=== PATIENT | male | born 1945 | race Caucasian/White ===

== ENCOUNTER → 2020-09-08 09:05 | Outpatient (BNVA) | payer MEDICARE, SELFPAY | PROVIDERS: PCP Internal Medicine; Referring Provider Internal Medicine; Visit Provider Internal Medicine Cardiovascular Disease | DX: I25.10 Atherosclerotic heart disease of native coronary artery without angina pectoris (principal); I10 Essential (primary) hypertension; E78.5 Hyperlipidemia, unspecified; I45.10 Unspecified right bundle-branch block; Z95.5 Presence of coronary angioplasty implant and graft | CPT/HCPCS: 99212 ==

== ENCOUNTER 2020-12-15 | Outpatient (REF) | payer MEDICARE, SELFPAY | END 2020-12-15 00:01 | disposition home or self-care (01) | LOC: HO.VC | PROVIDERS: Visit Provider Internal Medicine | DX: Z23 Encounter for immunization (principal) | CPT/HCPCS: 0011A ==

== ENCOUNTER 2020-12-23 09:21 | Outpatient (REF) | payer MEDICARE, SELFPAY ==
[2020-12-23 10:51] LABS: C Reactive Protein 0.14 mg/dL (< or = 0.50)
[2020-12-23 11:48] LABS: Erythrocyte Sedimentation Rate 7 MM/HR (0-15)
== END 2020-12-23 09:22 | disposition home or self-care (01) ==
LOC: HO.LAB 09:21
PROVIDERS: PCP Internal Medicine; Visit Provider Student in an Organized Health Care Education/Training Program
DX: M35.3 Polymyalgia rheumatica (principal)
CPT/HCPCS: 36415; 85652; 86140

== ENCOUNTER → 2020-12-28 14:24 | Outpatient (BNVA) | payer MEDICARE, SELFPAY | PROVIDERS: Visit Provider Student in an Organized Health Care Education/Training Program | DX: M35.3 Polymyalgia rheumatica (principal); M17.12 Unilateral primary osteoarthritis, left knee | CPT/HCPCS: 99212 ==

== ENCOUNTER → 2020-12-31 09:50 | Outpatient (BNVA) | payer MEDICARE, SELFPAY | PROVIDERS: Visit Provider Orthopaedic Surgery | DX: M17.12 Unilateral primary osteoarthritis, left knee (principal) | CPT/HCPCS: 20610; 99212; J1040 ==

== ENCOUNTER 2021-01-11 | Outpatient (REF) | payer MEDICARE, SELFPAY | END 2021-01-11 00:01 | disposition home or self-care (01) | LOC: HO.VC | PROVIDERS: Visit Provider Internal Medicine | DX: Z23 Encounter for immunization (principal) | CPT/HCPCS: 0012A ==

== ENCOUNTER 2021-02-15 08:23 | Outpatient (REF) | payer MEDICARE, SELFPAY ==
[2021-02-15 09:22] LABS: Cholesterol 138 mg/dL; HDL Cholesterol 51 mg/dL; LDL Cholesterol Calculated 67 mg/dl; Triglycerides 100 mg/dL
== END 2021-02-15 08:24 | disposition home or self-care (01) ==
LOC: HO.LAB 08:23
PROVIDERS: PCP Internal Medicine; Visit Provider Internal Medicine
DX: E11.9 Type 2 diabetes mellitus without complications (principal)
CPT/HCPCS: 36415; 80061

== ENCOUNTER → 2021-03-15 09:09 | Outpatient (BNVA) | payer MEDICARE, SELFPAY | PROVIDERS: Visit Provider Urology | DX: N40.1 Benign prostatic hyperplasia with lower urinary tract symptoms (principal); N13.8 Other obstructive and reflux uropathy; R39.12 Poor urinary stream; R35.1 Nocturia | CPT/HCPCS: 51798; 81002; 99212 ==

== ENCOUNTER → 2021-04-26 10:57 | Outpatient (BNVA) | payer MEDICARE, SELFPAY | PROVIDERS: PCP Internal Medicine; Visit Provider Urology | DX: N40.1 Benign prostatic hyperplasia with lower urinary tract symptoms (principal); N13.8 Other obstructive and reflux uropathy; R35.1 Nocturia | CPT/HCPCS: 52000; 99212 ==

== ENCOUNTER 2021-04-29 09:11 | Outpatient (REF) | payer MEDICARE, SELFPAY ==
[2021-04-29 12:08] LABS: COVID-19 Test Negative (Negative)
== END 2021-04-29 09:12 | disposition home or self-care (01) ==
LOC: HO.LAB 09:11
PROVIDERS: PCP Internal Medicine; Visit Provider Internal Medicine
DX: Z20.822 Contact with and (suspected) exposure to COVID-19 (principal)
CPT/HCPCS: 36415; 87635; C9803

== ENCOUNTER 2021-04-30 07:50 | Emergency (ER) | payer MEDICARE, SELFPAY ==
--- NOTE | 2021-04-30 08:01 | ED.MALEGU ---
HPI - Male Genitourinary General Chief complaint: Urogenital-Male Stated complaint: Cant Urinate Time Seen by Provider: 04/30/21 07:58 Source: patient Mode of arrival: ambulatory Limitations: no limitations History of Present Illness MD Complaint: other (urinary retention) Onset (ago): day(s) (started last evening) Duration: constant Severity: moderate Quality: aching Relieving factors: none Exacerbating factors: none Context: recent surgery (on 04/26 had cystoscopy and started on finasteride which he states he cannot tolerate) Associated symptoms: Reports denies other symptoms Related Data Home Medications Medication Instructions Recorded Confirmed calcium carbonate 600 mg (1,500 1 tab PO DAILY 08/18/20 11/24/20 mg)-vitamin D3 400 unit tablet niacin 500 mg tablet 500 mg PO BID 08/18/20 11/24/20 aspirin 81 mg tablet,delayed 81 mg PO DAILY 09/08/20 11/24/20 release Previous Rx's Medication Instructions Recorded carvedilol 12.5 mg tablet 12.5 mg PO BID #180 tab 11/08/20 simvastatin 40 mg tablet 40 mg PO BEDTIME #90 tab 11/08/20 lisinopril 10 mg tablet 10 mg PO DAILY #90 tab 04/07/21 isosorbide mononitrate 30 mg 30 mg PO QAM #30 tab 04/22/21 tablet,extended release 24 hr finasteride 5 mg tablet 5 mg PO DAILY 90 Days #90 tab 04/26/21 terazosin 1 mg capsule 1 mg PO BEDTIME 90 Days #90 cap 04/26/21 cefuroxime axetil 500 mg PO BID 10 Days #20 tab 04/30/21 Allergies Allergy/AdvReac Type Severity Reaction Status Date / Time No Known Allergies Allergy Verified 04/26/21 11:13 Review of Systems Review of Systems: Constitutional : No Weight loss, No Fever, No Chills ENT/Mouth : No sore throat, No Rhinorrhea Eyes: No Swelling, No Redness Cardiovascular : No Chest Pain, No SOB, NoEdema Respiratory : No Cough, No Sputum, No Wheezing Gastrointestinal : no Nausea, no Vomiting, no Diarrhea, positive abdominal Pain, No Hematochezia, No Melena Genitourinary : No Dysuria, No Urinary Frequency, No Hematuria, No Urgency , pos retention Musculoskeletal : No joint pain, No Myalgias, No Joint Swelling Skin : No Skin Lesions, No rash Neuro : No Weakness, No Numbness, No Dizziness, No Headache Psych : No Anxiety/Panic, No Depression Heme/Lymph: No Bruising, No Lymphadenopathy Endocrine : No Polyuria, No Polydipsia All other systems reviewed and are negative. [facility] Past Medical History Attestation statement: The following information was validated with the patient. Medical History CAD (coronary artery disease) HTN (hypertension) Hyperlipidemia Other obstructive and reflux uropathy Polymyalgia rheumatica RBBB Surgical History Hx of cardiac cath No pertinent past surgical history Stented coronary artery Family History Family History Father CVD (cardiovascular disease) Mother CVD (cardiovascular disease) Social History Social History (Updated 04/30/21 @ 08:13 by Genesis Solis DO) Alcohol intake: never Patient Tobacco Use Status: Never used Tobacco Use of substances other than those prescribed or required for medical reasons: No Advance Directives: Yes Advance Directives Information Provided: Yes Advance Directives on File: No Physical Exam Vital Signs: Vital Signs: Last Vital Signs Temp 98.3 F 04/30/21 08:06 Pulse 96 04/30/21 08:53 Resp 16 04/30/21 08:53 BP 106/61 04/30/21 08:53 Pulse Ox 96 04/30/21 08:53 Body Mass Index 25.8 Appearance: Alert. Oriented X3. No acute distress. Eyes: Pupils equal, round and reactive to light. ENT: Pharynx normal. Neck: Normal inspection. Neck supple. CVS: Normal heart rate and rhythm. Pulses normal. Respiratory: No respiratory distress. Breath sounds normal. Abdomen: Soft and non-tender. Suprapubic fullness noted Skin: Skin warm and dry. Normal skin color. Normal skin turgor. Extremities: No lower extremity edema. No calf ttp Neuro: Oriented X 3. No motor deficit. No sensory deficit. Course Course Course Narrative: cath placed by RN without issue + UA no signs of sepsis at this time, able to tolerate PO, will give rocephin dose prior to DC MDM - Male Genitourinary MDM Narrative Medical decision making narrative: 75 yo male with BPH, CAD, HTN, HLD here with urinary retention since last evening, noted changes in his stream since cystoscopy on 04/26 and new changes to his prostate medications - at this time labs, UA, flores placement with lidocaine ordered, aware he will need to go home with flores and follow up with Urology Lab Data Result diagrams: 04/30/21 08:50 04/30/21 08:50 Labs: Lab Results 04/30/21 04/30/21 04/30/21 Range/Units 08:49 08:50 08:50 WBC 13.6 H (4.8-10.8) X10*3/uL RBC 4.72 (4.60-5.80) X10*6/uL Hgb 15.4 (14.0-18.0) g/dl Hct 44.1 (42-52) % MCV 93.4 (80-98) fL MCH 32.6 (27.0-33.0) pg MCHC 34.9 (31.0-36.0) g/dl RDW 11.7 (11.0-16.0) % Plt Count 124 L (160-400) X10*3/uL MPV 11.1 (9.4-12.4) fL Immature Gran % (Auto) 1.2 H (0.0-0.4) % Neut % (Auto) 81.8 H (45-73) % Lymph % (Auto) 5.2 L (20-40) % [place] % (Auto) 11.7 H (2-11) % Eos % (Auto) 0.0 (0-4) % Baso % (Auto) 0.1 (0-2) % Lymph # (Auto) 0.7 L (1.2-4.9) X10*3/uL [place] # (Auto) 1.6 H (0.1-1.2) X10*3/uL Eos # (Auto) 0.0 (0.0-0.4) X10*3/uL Baso # (Auto) 0.0 (0.0-0.2) X10*3/uL Abs Immat Gran (auto) 0.16 H (0.00-0.03) X10*3/uL Absolute Neuts (auto) 11.1 H (2.0-8.3) X10*3/uL Absolute Nucleated RBC 0.000 (0.0-0.012) X10*3/uL Nucleated RBC % (auto) 0.0 (0.0-0.2) /100WBC Smear Tech's Comments VERIFIED Sodium 136 (135-145) mmol/L Potassium 4.6 (3.3-5.1) mmol/L Chloride 104 (96-108) mmol/L Carbon Dioxide 24 (22-29) mmol/L Anion Gap 13 (12-20) BUN 22 H (9-16) mg/dL Creatinine 1.08 (0.5-1.4) mg/dL Estim Creat Clear Calc 51.6 Estimated GFR > 60 Random Glucose 150 H (60-115) mg/dL Calcium 8.8 (8.4-10.2) mg/dL Urine Color YELLOW Urine Appearance CLOUDY Urine pH 6.0 (5.0-8.0) Ur Specific [place] <= 1.005 (1.005-1.025) Urine Protein 1+ H (NEG-TRACE) MG/DL Urine Glucose (UA) NEG (NEG) MG/DL Urine Ketones 5 (NEG) MG/DL Urine Blood 3+ H (NEG) Urine Nitrite POS H (NEG) Ur Leukocyte Esterase 2+ H (NEG) Urine RBC 15-29 H (0) /HPF Urine WBC 50-75 H (0-4) /HPF Ur Squamous Epith Cells 1+ /LPF Urine Bacteria 1+ /LPF Discharge Plan Discharge Clinical Impression: Urinary tract infection, Acute retention of urine Patient Disposition: Home, Self-Care Instructions: Urinary Tract Infection in Men (ED), Flores Catheter Placement and Care (ED) Additional Instructions: return to ED for any worsening symptoms or concerns KEEP CATHETER IN PLACE UNTIL YOU SEE UROLOGY Prescriptions: New cefuroxime axetil 500 mg tablet 500 mg PO BID 10 Days Qty: 20 RF: 0 No Action simvastatin 40 mg tablet 40 mg PO BEDTIME Qty: 90 RF: 8 carvedilol 12.5 mg tablet 12.5 mg PO BID Qty: 180 RF: 8 lisinopril 10 mg tablet 10 mg PO DAILY Qty: 90 RF: 8 isosorbide mononitrate 30 mg tablet extended release 24 hr 30 mg PO QAM Qty: 30 RF: 5 niacin 500 mg tablet 500 mg PO BID RF: 0 calcium carbonate-vitamin D3 [Calcium with Vitamin D] 600 mg(1,500mg) -400 unit tablet 1 tab PO DAILY RF: 0 aspirin [Adult Low Dose Aspirin] 81 mg tablet,delayed release (DR/EC) 81 mg PO DAILY RF: 0 finasteride 5 mg tablet 5 mg PO DAILY 90 Days Qty: 90 RF: 1 terazosin 1 mg capsule 1 mg PO BEDTIME 90 Days Qty: 90 RF: 1 Referrals: Fidencio Rhodes MD [Physician] - 3 days
[2021-04-30 08:06] VITALS: BP 128/82; PULSE 110; RESP 16; TEMP 36.8; O2SAT 96; BMI 25.8
[2021-04-30] MEDS: Lidocaine HCl 2 % Urojet 10 ML JEL.PF.APP TOPICAL (08:35)
[2021-04-30 08:53] VITALS: BP 106/61; PULSE 96; RESP 16; O2SAT 96
--- NOTE | 2021-04-30 08:54 | PC.NURSE ---
VSS. Pt states that he is much more comfortable now that he has the catheter in place. Per previous RN coude was inserted with 800ml of urine output. Pt is resting in bed comfortably at this time.
[2021-04-30 08:56] LABS: Hemoglobin 15.4 g/dl (14.0-18.0); Imm Gran Abs Auto 0.16 X10*3/uL (0.00-0.03); Imm Gran Pct Auto 1.2 % (0.0-0.4); MANUAL DIFF FLAG SCAN; Mean Corpuscular Hemoglobin 32.6 pg (27.0-33.0); PLT CLUMP 1; Red Blood Count 4.72 X10*6/uL (4.60-5.80); Red Cell Distribution Width 11.7 % (11.0-16.0); SCAN SMEAR FLAG 1
[2021-04-30 08:57] LABS: Glucose Urine UA NEG (NEG); Leukocyte Esterase Urine 2+ (NEG); Nitrite Urine POS (NEG); Specific Gravity - Urine <= 1.005 (1.005-1.025); UACC Culture Trigger YES; Urine Blood 3+ (NEG); Urine Ketones 5 MG/DL (NEG); Urine Protein 1+ MG/DL (NEG-TRACE)
[2021-04-30 08:58] LABS: Appearance Urine CLOUDY; Color Urine YELLOW
[2021-04-30 08:58] LABS: Basophils Percent Auto 0.1 % (0-2); Hematocrit 44.1 % (42-52); Lymphocytes Absolute Auto 0.7 X10*3/uL (1.2-4.9); Lymphocytes Percent Auto 5.2 % (20-40); Mean Corpuscular HGB Conc 34.9 g/dl (31.0-36.0); Mean Corpuscular Volume 93.4 fL (80-98); Mean Platelet Volume 11.1 fL (9.4-12.4); Monocytes Absolute Auto 1.6 X10*3/uL (0.1-1.2); Monocytes Percent Auto 11.7 % (2-11); Neutrophils Absolute Auto 11.1 X10*3/uL (2.0-8.3); Neutrophils Percent Auto 81.8 % (45-73); Platelet Count 124 X10*3/uL (160-400); White Blood Count 13.6 X10*3/uL (4.8-10.8)
[2021-04-30 09:11] LABS: Bacteria Urine 1+ /LPF; Squamous Epithelial Cell Urine 1+ /LPF; WBC Urine 50-75 /HPF (0-4)
[2021-04-30 09:24] LABS: SLIDE REVIEW VERIFIED
[2021-04-30 09:27] LABS: Anion Gap 13 (12-20); Blood Urea Nitrogen 22 mg/dL (9-16); Calcium 8.8 mg/dL (8.4-10.2); Carbon Dioxide 24 mmol/L (22-29); Chloride 104 mmol/L (96-108); Creatinine Clr Calc Pharmacy 51.6; Estimated Glomerular Filt Rate > 60; Glucose Random 150 mg/dL (60-115); Potassium 4.6 mmol/L (3.3-5.1); Sodium 136 mmol/L (135-145)
[2021-04-30] MEDS: cefTRIAXone sodium 1 GM in 0.9 % Sodium Chloride 50 ML IV (10:13)
--- NOTE | 2021-04-30 10:14 | PC.NURSE ---
Ceftriaxone running. Pt aware of the plan to dc home with catheter.
== END 2021-04-30 10:44 | disposition home or self-care (01) ==
PROVIDERS: Emergency Provider Emergency Medicine; PCP Internal Medicine
DX: N39.0 Urinary tract infection, site not specified (principal); N40.1 Benign prostatic hyperplasia with lower urinary tract symptoms; R33.8 Other retention of urine; I10 Essential (primary) hypertension; Z79.899 Other long term (current) drug therapy
CPT/HCPCS: 36415; 51702; 80048; 81001; 81003; 85025; 87086; 87088; 87186; 96365; 99284; 99285; J0696

== ENCOUNTER → 2021-05-05 08:25 | Outpatient (BNVA) | payer MEDICARE, SELFPAY | PROVIDERS: PCP Internal Medicine | DX: N40.1 Benign prostatic hyperplasia with lower urinary tract symptoms (principal); N13.8 Other obstructive and reflux uropathy; R33.8 Other retention of urine | CPT/HCPCS: 51700; 99212 ==

== ENCOUNTER 2021-05-17 08:30 | Outpatient (REF) | payer MEDICARE, SELFPAY ==
[2021-05-17 09:09] LABS: MANUAL DIFF FLAG NO
[2021-05-17 09:12] LABS: Basophils Absolute Auto 0.1 X10*3/uL (0.0-0.2); Basophils Percent Auto 0.8 % (0-2); Eosinophils Absolute Auto 0.2 X10*3/uL (0.0-0.4); Hemoglobin 16.3 g/dl (14.0-18.0); Imm Gran Abs Auto 0.03 X10*3/uL (0.00-0.03); Imm Gran Pct Auto 0.4 % (0.0-0.4); Lymphocytes Absolute Auto 1.7 X10*3/uL (1.2-4.9); Lymphocytes Percent Auto 21.4 % (20-40); Mean Corpuscular Hemoglobin 31.9 pg (27.0-33.0); Mean Corpuscular Volume 93.9 fL (80-98); Mean Platelet Volume 11.1 fL (9.4-12.4); Monocytes Absolute Auto 0.8 X10*3/uL (0.1-1.2); Monocytes Percent Auto 10.8 % (2-11); Neutrophils Absolute Auto 4.9 X10*3/uL (2.0-8.3); Neutrophils Percent Auto 63.6 % (45-73); Platelet Count 232 X10*3/uL (160-400); Red Blood Count 5.11 X10*6/uL (4.60-5.80); Red Cell Distribution Width 11.9 % (11.0-16.0); White Blood Count 7.7 X10*3/uL (4.8-10.8)
[2021-05-17 09:29] LABS: Alanine Aminotransferase 19 U/L (0-40); Alkaline Phosphatase 67 U/L (39-117); Anion Gap 11 (12-20); Aspartate Amino Transferase 22 U/L (5-37); Blood Urea Nitrogen 18 mg/dL (9-16); C Reactive Protein 0.96 mg/dL (< or = 0.50); Calcium 9.6 mg/dL (8.4-10.2); Carbon Dioxide 28 mmol/L (22-29); Chloride 106 mmol/L (96-108); Cholesterol 134 mg/dL; Estimated Glomerular Filt Rate > 60; Glucose Fasting 115 mg/dL (60-99); HDL Cholesterol 45 mg/dL; Potassium 4.7 mmol/L (3.3-5.1); Sodium 140 mmol/L (135-145); Total Protein 6.7 g/dL (6.5-8.0)
[2021-05-17 09:31] LABS: LDL Cholesterol Calculated 72 mg/dl; Triglycerides 88 mg/dL
[2021-05-17 10:44] LABS: Erythrocyte Sedimentation Rate 25 MM/HR (0-15)
== END 2021-05-17 08:31 | disposition home or self-care (01) ==
LOC: HO.LAB 08:30
PROVIDERS: Student in an Organized Health Care Education/Training Program; PCP Internal Medicine; Visit Provider Internal Medicine
DX: Z00.00 Encounter for general adult medical examination without abnormal findings (principal); M35.3 Polymyalgia rheumatica; E11.9 Type 2 diabetes mellitus without complications
CPT/HCPCS: 36415; 80053; 80061; 85025; 85652; 86140

== ENCOUNTER → 2021-05-19 10:24 | Outpatient (BNVA) | payer MEDICARE, SELFPAY | PROVIDERS: PCP Internal Medicine; Visit Provider Urology | DX: Z13.89 Encounter for screening for other disorder (principal) | CPT/HCPCS: 99212 ==

== ENCOUNTER → 2021-06-03 08:54 | Outpatient (BNVA) | payer MEDICARE, SELFPAY | PROVIDERS: PCP Internal Medicine | DX: R33.9 Retention of urine, unspecified (principal) | CPT/HCPCS: 51700; 99212 ==

== ENCOUNTER 2021-07-06 09:52 | Outpatient (REF) | payer MEDICARE, SELFPAY | END 2021-07-06 09:53 | disposition home or self-care (01) | LOC: HO.LNP 09:52 | PROVIDERS: PCP Internal Medicine | DX: N13.8 Other obstructive and reflux uropathy (principal); Z79.899 Other long term (current) drug therapy | CPT/HCPCS: 51798; 87086; 87088; 87186; 99212 ==

== ENCOUNTER → 2021-07-22 10:07 | Outpatient (BNVA) | payer MEDICARE, SELFPAY | PROVIDERS: Visit Provider Student in an Organized Health Care Education/Training Program | CPT/HCPCS: Q3014 ==

== ENCOUNTER 2021-08-18 10:02 | Outpatient (REF) | payer MEDICARE, SELFPAY ==
[2021-08-18 11:18] LABS: Cholesterol 123 mg/dL; HDL Cholesterol 41 mg/dL; LDL Cholesterol Calculated 65 mg/dl; Triglycerides 85 mg/dL
== END 2021-08-18 10:03 | disposition home or self-care (01) ==
LOC: HO.LAB 10:02
PROVIDERS: PCP Internal Medicine; Visit Provider Internal Medicine
DX: I10 Essential (primary) hypertension (principal)
CPT/HCPCS: 36415; 80061

== ENCOUNTER → 2021-09-05 08:59 | Outpatient (BNVA) | payer MEDICARE, SELFPAY | PROVIDERS: PCP Internal Medicine; Referring Provider Internal Medicine; Visit Provider Internal Medicine Cardiovascular Disease | DX: R42 Dizziness and giddiness (principal); I25.10 Atherosclerotic heart disease of native coronary artery without angina pectoris; I10 Essential (primary) hypertension; I45.10 Unspecified right bundle-branch block; E78.5 Hyperlipidemia, unspecified; M35.3 Polymyalgia rheumatica; Z95.5 Presence of coronary angioplasty implant and graft; Z98.890 Other specified postprocedural states; Z79.899 Other long term (current) drug therapy | CPT/HCPCS: 93005; 99212 ==

== ENCOUNTER 2021-11-25 08:10 | Outpatient (REF) | payer MEDICARE, SELFPAY ==
[2021-11-25 11:06] LABS: Alanine Aminotransferase 19 U/L (0-40); Albumin Level 4.2 g/dL (3.5-5.0); Alkaline Phosphatase 57 U/L (39-117); Anion Gap 13 (12-20); Aspartate Amino Transferase 19 U/L (5-37); Bilirubin Total 1.1 mg/dL (0.0-1.0); Blood Urea Nitrogen 24 mg/dL (9-16); Calcium 9.5 mg/dL (8.4-10.2); Carbon Dioxide 25 mmol/L (22-29); Chloride 106 mmol/L (96-108); Cholesterol 124 mg/dL; Estimated Glomerular Filt Rate > 60; Glucose Fasting 99 mg/dL (60-99); HDL Cholesterol 46 mg/dL; LDL Cholesterol Calculated 63 mg/dl; Potassium 4.3 mmol/L (3.3-5.1); Sodium 140 mmol/L (135-145); Total Protein 6.7 g/dL (6.5-8.0); Triglycerides 76 mg/dL
== END 2021-11-25 08:11 | disposition home or self-care (01) ==
LOC: HO.LAB 08:10
PROVIDERS: PCP Internal Medicine; Visit Provider Internal Medicine
DX: E11.9 Type 2 diabetes mellitus without complications (principal)
CPT/HCPCS: 36415; 80053; 80061

== ENCOUNTER → 2022-01-05 08:36 | Outpatient (BNVA) | payer MEDICARE, SELFPAY | PROVIDERS: PCP Internal Medicine; Referring Provider Internal Medicine; Visit Provider Surgery | DX: K40.90 Unilateral inguinal hernia, without obstruction or gangrene, not specified as recurrent (principal) | CPT/HCPCS: 99202 ==

== ENCOUNTER 2022-01-09 09:58 | Outpatient (REF) | payer MEDICARE, SELFPAY ==
[2022-01-09 11:44] LABS: Cholesterol 127 mg/dL; HDL Cholesterol 44 mg/dL; LDL Cholesterol Calculated 66 mg/dl; Triglycerides 87 mg/dL
[2022-01-09 11:54] LABS: Prostate Specific Antigen 2.22 ng/mL (<0.05-4.0)
== END 2022-01-09 09:59 | disposition home or self-care (01) ==
LOC: HO.LAB 09:58
PROVIDERS: PCP Internal Medicine; Visit Provider Urology
DX: Z00.00 Encounter for general adult medical examination without abnormal findings (principal); Z12.5 Encounter for screening for malignant neoplasm of prostate; N40.1 Benign prostatic hyperplasia with lower urinary tract symptoms; N13.8 Other obstructive and reflux uropathy
CPT/HCPCS: 36415; 80061; 84153

== ENCOUNTER → 2022-01-27 08:44 | Outpatient (BNVA) | payer MEDICARE, SELFPAY | PROVIDERS: PCP Internal Medicine; Visit Provider Urology | DX: N40.1 Benign prostatic hyperplasia with lower urinary tract symptoms (principal); R33.8 Other retention of urine; R39.12 Poor urinary stream; Z79.899 Other long term (current) drug therapy | CPT/HCPCS: 99212 ==

== ENCOUNTER 2022-05-26 07:54 | Outpatient (REF) | payer MEDICARE, SELFPAY ==
[2022-05-26 09:04] LABS: Cholesterol 134 mg/dL; HDL Cholesterol 42 mg/dL; LDL Cholesterol Calculated 75 mg/dl; Triglycerides 85 mg/dL
== END 2022-05-26 07:55 | disposition home or self-care (01) ==
LOC: HO.LAB 07:54
PROVIDERS: PCP Internal Medicine; Visit Provider Internal Medicine
DX: Z13.9 Encounter for screening, unspecified (principal); Z13.220 Encounter for screening for lipoid disorders
CPT/HCPCS: 36415; 80061

== ENCOUNTER 2022-07-20 08:27 | Outpatient (REF) | payer MEDICARE, SELFPAY ==
[2022-07-20 10:46] LABS: C Reactive Protein 0.03 mg/dL (< or = 0.50)
[2022-07-20 11:21] LABS: Erythrocyte Sedimentation Rate 6 MM/HR (0-15)
== END 2022-07-20 08:28 | disposition home or self-care (01) ==
LOC: HO.10HDL 08:27
PROVIDERS: Visit Provider Nurse Practitioner Family
DX: M35.3 Polymyalgia rheumatica (principal)
CPT/HCPCS: 36415; 85652; 86140

== ENCOUNTER → 2022-07-24 12:20 | Outpatient (BNVA) | payer MEDICARE, SELFPAY | PROVIDERS: PCP Internal Medicine; Visit Provider Nurse Practitioner Family | DX: M35.3 Polymyalgia rheumatica (principal); M17.12 Unilateral primary osteoarthritis, left knee | CPT/HCPCS: 99212 ==

== ENCOUNTER → 2022-07-25 14:34 | Outpatient (BNVA) | payer MEDICARE, SELFPAY | PROVIDERS: PCP Internal Medicine; Visit Provider Urology | DX: N40.1 Benign prostatic hyperplasia with lower urinary tract symptoms (principal); N13.8 Other obstructive and reflux uropathy; R35.1 Nocturia; Z79.899 Other long term (current) drug therapy | CPT/HCPCS: 51798; 99212 ==

== ENCOUNTER → 2022-09-15 08:32 | Outpatient (BNVA) | payer MEDICARE, SELFPAY | PROVIDERS: PCP Internal Medicine; Visit Provider Internal Medicine Cardiovascular Disease | DX: I25.10 Atherosclerotic heart disease of native coronary artery without angina pectoris (principal); R42 Dizziness and giddiness | CPT/HCPCS: 93005; 99212 ==

== ENCOUNTER → 2022-09-22 07:13 | Outpatient (REF) | payer MEDICARE, SELFPAY ==
--- NOTE | 2022-09-22 07:18 | CA_ITS ---
Transthoracic Echocardiogram Patient (Last, First, Middle): Mohsen Naylor A Gender: Male Date of : 1945 Age: 77 Procedure Date: 09/22/2022 Procedure Type: Transthoracic Echocardiogram Location: OP Height: 167.64 cm Weight: 68.95 kg BSA: 1.78 m2 Heart Rate: 42 bpm BP: 126 / 70 mmHg Rad Technologist: SB Referring MD: Fletcher Whtie MD Symptoms: R42 - Dizziness and giddiness Study Quality: Adequate ECG Rhythm: Bradycardia Conclusions: - Normal left ventricular size, thickness, and systolic function. The visually estimated ejection fraction is between 55-60%. - E/E prime ratio is between 8 and 15 consistent with indeterminate filling pressures. - The basal inferior and apical septum segments are akinetic. - Normal right ventricular cavity size and systolic function. Findings Left Ventricle Normal left ventricular size, thickness, and systolic function. The visually estimated ejection fraction is between 55-60%. There is evidence of regional wall motion abnormalities. Abnormal diastolic function is noted. Spectral Doppler is indicative of an impaired relaxation filling pattern. E/E prime ratio is between 8 and 15 consistent with indeterminate filling pressures. Wall Motion Rest Echo Findings The basal inferior and apical septum segments are akinetic. Right Ventricle Normal right ventricular cavity size and systolic function. Atria Both atria are normal in size. Aortic Valve There is a normal trileaflet aortic valve. There is mild calcification of the aortic valve. There is no aortic valve stenosis. There is no aortic valve regurgitation. Mitral Valve The mitral valve appears normal. There is no mitral valve regurgitation. There is no mitral valve stenosis. Pulmonic Valve Normal pulmonic valve structure and function. Tricuspid Valve Normal tricuspid valve structure. There is trace tricuspid valve regurgitation. Tricuspid regurgitation envelope is inadequate for calculation of right ventricular systolic pressure. Normal right atrial pressure. Great Vessels The visualized portions of the pulmonary artery and branches are normal. Venous The inferior vena cava is normal in size and collapses greater than 50% with inspiration. Pericardium/Pleural There is no evidence of pericardial effusion. Prior Study Comparison Changes noted compared to prior study dated: 06/24/2018. Basal inferior and apical septum are akinetic. Measurements 2D Linear Measurements IVSd: 0.94 0.6-0.9/0.6-1.0 cm LVIDd: 5.13 3.9-5.3/4.2-5.9 cm LVIDd Index: 2.88 2.4-3.2/2.2-3.1 cm/m2 LVIDs: 3.18 2.0-3.6 cm LVPWd: 0.70 0.7-1.1 cm LA Diam: 3.70 2.7-3.8/3.0-4.0 cm LAIDs Index: 2.08 1.5-2.3 cm/m2 LV Mass: 181.15 67-162/88-224 g LV Mass Index: 101.77 43-95/49-115 g/m2 LVOT Diam: 2.20 3.0+(-)1.3 cm Mitral Valve MV Pk E: 0.70 MV PK A: 1.02 MV Decel Time: 236.00 E/A: 0.70 E'Lateral: 5.87 E'Medial: 6.74 E/E' Med: 10.40 E/E' Lat: 12.00 PHT: 69.00 MVA PHT: 3.19 Decel [place]: 2.98 Aortic Valve AoV Pk Eduardo: 1.22 AoV Mn Eduardo: 0.85 AoV VTI: 0.27 AoV Pk Grad: 6.00 Aov Mn Grad: 3.00 YUNIOR Cont.VTI: 3.48 LVOT LVOT Pk Eduardo: 1.26 LVOT Mn Eduardo: 0.74 LVOT VTI: 0.25 LVOT Pk Grad: 6.00 LVOT Mn Grad: 3.00 LVOT Diam: 2.20 LVOT Area: 3.80 Diastolic Function MV Pk E: 0.70 MV Pk A: 1.02 E/A: 0.70 E'Medial: 6.74 E/E' Med: 10.40 E' Laterial: 5.87 E/E' Lat: 12.00 Right Ventricle TAPSE (mm): 17.50 TVS' Eduardo: 9.00 Tricuspid Valve RA Press: 3.00 Great Vessels Aorta Sinus of Valsalva: 3.60 2.0-3.5 cm Ao Asc: 3.80 2.1-3.4 cm Pulmonary Veins Pulm Vein S/D 1.40 Pulmonary Valve PV Pk Eduardo: 0.98 Peak PV Grad: 4.00 Updated in Other Vendor System with Status of Final Julio Cesar Espinoza MD electronically signed on 09/24/2022 8:07:32 PM with status of Final
--- NOTE | 2022-09-22 07:18 | HM_ITS ---
* Total monitoring time 5 days. * Underlying rhythm is sinus. Average ventricular rate 64/Min. Range 43 to 99/Min. * There is evidence of atrial fibrillation/flutter with rapid rates. Longest episode 9 hours and 49 minutes. Maximum rate 127/Min. * Rare PVCs with minimal burden. Longest run 6 beats. One episode. * No significant pauses or AV blocks. * No patient diary. MTDD
== END ==
LOC: HO.CARD 07:13
PROVIDERS: Visit Provider Internal Medicine Cardiovascular Disease
DX: R42 Dizziness and giddiness (principal)
CPT/HCPCS: 93242; 93306

== ENCOUNTER 2022-12-05 08:02 | Outpatient (REF) | payer MEDICARE, SELFPAY ==
[2022-12-05 08:26] LABS: MANUAL DIFF FLAG NO
[2022-12-05 08:34] LABS: Basophils Percent Auto 0.7 % (0-2); Eosinophils Absolute Auto 0.2 X10*3/uL (0.0-0.4); Eosinophils Percent Auto 3.4 % (0-4); Hematocrit 46.6 % (42.0-52.0); Imm Gran Abs Auto 0.02 X10*3/uL (0.00-0.03); Imm Gran Pct Auto 0.3 % (0.0-0.4); Lymphocytes Absolute Auto 1.5 X10*3/uL (1.2-4.9); Lymphocytes Percent Auto 23.7 % (20-40); Mean Corpuscular HGB Conc 34.3 g/dl (31.0-36.0); Mean Corpuscular Hemoglobin 31.8 pg (27.0-33.0); Mean Corpuscular Volume 92.6 fL (80.0-98.0); Mean Platelet Volume 11.1 fL (9.4-12.4); Monocytes Absolute Auto 0.7 X10*3/uL (0.1-1.2); Monocytes Percent Auto 11.3 % (2-11); Neutrophils Absolute Auto 3.7 x10*3/uL (2.0-8.3); Neutrophils Percent Auto 60.6 % (45-73); Platelet Count 159 X10*3/uL (160-400); Red Blood Count 5.03 X10*6/uL (4.60-5.80); Red Cell Distribution Width 11.9 % (11.0-16.0); White Blood Count 6.1 X10*3/uL (4.8-10.8)
[2022-12-05 09:04] LABS: Alanine Aminotransferase 22 U/L (0-40); Albumin Level 4.1 g/dL (3.5-5.0); Alkaline Phosphatase 64 U/L (39-117); Anion Gap 11 (12-20); Aspartate Amino Transferase 29 U/L (5-37); Bilirubin Total 1.8 mg/dL (0.0-1.0); Blood Urea Nitrogen 16 mg/dL (9-16); Calcium 9.5 mg/dL (8.4-10.2); Carbon Dioxide 27 mmol/L (22-29); Chloride 105 mmol/L (96-108); Cholesterol 125 mg/dL; Estimated Glomerular Filt Rate > 60; Glucose Fasting 112 mg/dL (60-99); HDL Cholesterol 41 mg/dL; LDL Cholesterol Calculated 68 mg/dl; Potassium 4.4 mmol/L (3.3-5.1); Sodium 139 mmol/L (135-145); Total Protein 6.4 g/dL (6.5-8.0); Triglycerides 83 mg/dL
== END 2022-12-05 08:03 | disposition home or self-care (01) ==
LOC: HO.LAB 08:02
PROVIDERS: PCP Internal Medicine; Visit Provider Internal Medicine
DX: Z13.0 Encounter for screening for diseases of the blood and blood-forming organs and certain disorders involving the immune mechanism (principal); I25.10 Atherosclerotic heart disease of native coronary artery without angina pectoris; I10 Essential (primary) hypertension
CPT/HCPCS: 36415; 80053; 80061; 85025

== ENCOUNTER → 2023-01-30 08:35 | Outpatient (BNVA) | payer MEDICARE, SELFPAY | PROVIDERS: PCP Internal Medicine; Visit Provider Urology | DX: N40.1 Benign prostatic hyperplasia with lower urinary tract symptoms (principal); N13.8 Other obstructive and reflux uropathy; R33.8 Other retention of urine; R35.1 Nocturia | CPT/HCPCS: 51798; 99212 ==

== ENCOUNTER 2023-03-22 09:32 | Outpatient (REF) | payer MEDICARE, SELFPAY ==
--- NOTE | ~2023-03-22 | XR_ITS ---
EXAMINATION: XR KNEE, LEFT XR KNEE AP STANDING CLINICAL INFORMATION: Pain. COMPARISON: Left knee radiographs dated 06/30/2020. TECHNIQUE: Lateral and axial views of the left knee are submitted. AP bilateral standing view of the knees was obtained. FINDINGS: The lateral and medial joint space compartments of the right knee are symmetric and well-maintained. No varus or valgus configuration is noted. There is marked asymmetric narrowing of the medial joint space compartment of the left knee, with full effacement of the joint space compartment and peripheral osteophyte formation. The left knee lateral joint space compartment is well-maintained, with mild articular surface irregularity and peripheral osteophyte formation. A moderate varus configuration is seen of the left knee. No fracture or dislocation is seen. The soft tissue planes are unremarkable. XR/XR knee LT 2V IMPRESSION: 1. 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 Mild osteoarthritic change is seen of the lateral joint space compartment. 2. There is a moderate varus configuration of the left knee. 3. The lateral and medial joint space compartments of the right knee are well-maintained.
--- NOTE | ~2023-03-22 | XR_ITS ---
EXAMINATION: XR KNEE, LEFT XR KNEE AP STANDING CLINICAL INFORMATION: Pain. COMPARISON: Left knee radiographs dated 06/30/2020. TECHNIQUE: Lateral and axial views of the left knee are submitted. AP bilateral standing view of the knees was obtained. FINDINGS: The lateral and medial joint space compartments of the right knee are symmetric and well-maintained. No varus or valgus configuration is noted. There is marked asymmetric narrowing of the medial joint space compartment of the left knee, with full effacement of the joint space compartment and peripheral osteophyte formation. The left knee lateral joint space compartment is well-maintained, with mild articular surface irregularity and peripheral osteophyte formation. A moderate varus configuration is seen of the left knee. No fracture or dislocation is seen. The soft tissue planes are unremarkable. XR/XR knee standing BI IMPRESSION: 1. 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 Mild osteoarthritic change is seen of the lateral joint space compartment. 2. There is a moderate varus configuration of the left knee. 3. The lateral and medial joint space compartments of the right knee are well-maintained.
== END 2023-03-22 09:33 | disposition home or self-care (01) ==
LOC: HO.HOSX 09:32
PROVIDERS: PCP Internal Medicine; Visit Provider Orthopaedic Surgery
DX: M17.12 Unilateral primary osteoarthritis, left knee (principal); M25.561 Pain in right knee; I25.10 Atherosclerotic heart disease of native coronary artery without angina pectoris; Z95.5 Presence of coronary angioplasty implant and graft
CPT/HCPCS: 73560; 73565; 99202

== ENCOUNTER 2023-06-14 10:35 | Outpatient (AMB) | payer MEDICARE, SELFPAY ==
--- NOTE | 2023-06-14 11:06 | MHC.PC.OV ---
Vital Signs 06/14/23 11:07 Height 5 ft 6 in Weight 159 lb 2 oz BMI 25.7 BP 130/70 Blood Pressure Location Lt brachial Position Sitting Pulse 59 Pulse Source Pulse Oximeter Pulse Oximetry (%) 97 Oxygen Delivery Method Room Air Intake Visit Reasons: 3mth f/u Intake Note: Patient is here to follow up on HTN, CAD, Hyperlipidemia. 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 Accompanied by: Self / Same As Patient Allergies No Known Allergies Allergy (Verified 06/14/23 11:07) Medication List - Last Reconciled 06/14/23 by Rikki Joe MD apixaban (Eliquis) 5 mg PO BID atorvastatin 40 mg PO DAILY calcium carbonate-vitamin D3 600 mg-10 mcg (400 unit) (Calcium with Vitamin D) 1 tab PO DAILY carvedilol 12.5 mg PO BID finasteride 5 mg PO DAILY 90 days Tobacco use date assessed: 06/14/23 Fall risk assessment: No Falls in past year Last assessed Fall Risk: 06/14/23 Dental Screening Dental Screen Date: 06/14/23 Did you have a dental visit in the last 12 months?: Yes Did you have a dental problem in the last 6 months where you did not have access to dental care?: No Was dental information given to patient?: Patient has dentist HPI 3mth f/u HPI Details HTN hyperlipidemia and BPH on rx; doing well; compliant [facility] Medical History CAD (coronary artery disease) HTN (hypertension) Hyperlipidemia Other obstructive and reflux uropathy Polymyalgia rheumatica RBBB Right inguinal hernia Urinary tract infection Surgical History History of colonoscopy Hx of cardiac cath Stented coronary artery Family History Father CVD (cardiovascular disease) Mother CVD (cardiovascular disease) Social History Housing: House Alcohol intake: never Patient Tobacco Use Status: Never used Tobacco e-Cigarette/Vaping Use: Never Used Second Hand Smoke Exposure: No service: No Current occupational status: retired Current occupational exposures/hazards: No Cognitive needs: No Hearing needs: Yes Vision needs: Yes Questionnaire PHQ-9 Over the last 2 weeks, how often have you been bothered by any of the following problems? Depression Screening Interpretation: Negative Source: Developed by Drs. Juan Carlos Finch, Heike Roberson, Justin Rene and colleagues, with an educational suzanne from [employer]. Thrive Questionnaire Date Thrive assessed: 12/11/22 Currently or been in a relationship where the following occur: no concerns reported ROBE-7 AMB Questionnaire ROBE-7 Date ROBE - 7 assessed: 12/11/22 Source: Developed by Drs. Juan Carlos Finch, Heike Roberson, Justin Rene and colleagues, with an educational suzanne from [employer]. Review of Systems Const Denies chills, Denies headache(s) and Denies weight loss ENT Denies headache(s) Card Denies chest pain, Denies syncope, Denies irregular heart rhythm and Denies dyspnea Resp Denies chest congestion, Denies cough and Denies dyspnea GI Denies abdominal pain, Denies change in stool character, Denies nausea and Denies vomiting Musc Denies deformity and Denies joint swelling Neuro Denies syncope and Denies headache(s) Physical exam (Primary Care) Vital Signs: Last Vital Signs Pulse 59 06/14/23 11:07 BP 130/70 06/14/23 11:07 Pulse Ox 97 06/14/23 11:07 Oxygen Delivery Method Room Air 06/14/23 11:07 BMI result Body Mass Index 25.7 Tobacco/Smoking Status: Tobacco use Status Tobacco use date assessed 06/14/23 06/14/23 11:12 Patient Tobacco Use Status Never used Tobacco 06/14/23 11:12 e-Cigarette/Vaping Use Never Used 06/14/23 11:12 Depression Screening Interpretation: Negative Thrive Assessment: Date of Thrive Assessment Date Thrive assessed 12/11/22 06/14/23 11:12 Currently or been in a relationship where the following occur: no concerns reported Const General: cooperative, comfortable and no acute distress Resp Effort & Inspection: normal respiratory effort Auscultation: clear to auscultation bilaterally Percussion: percussion normal Cardio Jugular venous distension: no JVD Rate: regular rate Rhythm: regular rhythm GI Inspection: Yes normal to inspection Assessment and Plan Assessment & Plan (1) BPH w urinary obs/LUTS: Code(s): N40.1 - Benign prostatic hyperplasia with lower urinary tract symptoms; N13.8 - Other obstructive and reflux uropathy Plan: stable; same rx (2) Hypertension: Code(s): I10 - Essential (primary) hypertension Plan: stable; same rx (3) Hyperlipidemia: Code(s): E78.5 - Hyperlipidemia, unspecified Plan: stable; do labs Coding Level of Care Code Est Pt Level 4 (13263) Diagnoses BPH w urinary obs/LUTS N40.1; N13.8 Hypertension I10 Hyperlipidemia E78.5
[2023-06-14 11:07] VITALS: BP 130/70; PULSE 59; O2SAT 97; BMI 25.7
== END 2023-06-14 11:31 | disposition home or self-care (01) ==
PROVIDERS: Visit Provider Internal Medicine
DX: N40.1 Benign prostatic hyperplasia with lower urinary tract symptoms (principal); N13.8 Other obstructive and reflux uropathy; I10 Essential (primary) hypertension; E78.5 Hyperlipidemia, unspecified
CPT/HCPCS: 99214

== ENCOUNTER 2023-06-19 08:29 | Outpatient (AMB) | payer MEDICARE, SELFPAY ==
[2023-06-19 08:49] VITALS: BP 120/70; PULSE 61; BMI 25.6
--- NOTE | 2023-06-19 08:49 | A.OFFVIS_ITS ---
Intake Vital Signs 06/19/23 08:49 Height 5 ft 6 in Weight 158 lb 11.725 oz BMI 25.6 BP 120/70 Blood Pressure Location Lt brachial Position Sitting Pulse 61 Intake Visit Reasons: Pre-Op/Lt TKA 08/28 Dr. Starr, spinal anesthesia Intake Note: Pre-op clearance for LTKA in Oct feeling good Card Stripper Required: No Allergies No Known Allergies Allergy (Verified 06/14/23 11:07) Medication List - Last Reconciled 06/19/23 by Fletcher White MD apixaban (Eliquis) 5 mg PO BID aspirin (Adult Aspirin Regimen) 81 mg PO DAILY atorvastatin 40 mg PO DAILY calcium carbonate-vitamin D3 600 mg-10 mcg (400 unit) (Calcium with Vitamin D) 1 tab PO DAILY carvedilol 12.5 mg PO BID finasteride 5 mg PO DAILY 90 days HPI HPI Comments History of Present Illness Details Mohsen comes for follow-up. He has no new cardiac symptoms. However he is scheduled to undergo left knee replacement surgery in August, intermediate risk surgery. He said he continues to remain active although is difficult to determine his exercise capacity given that he said he has slow down due to the pain. However he continues to maintain his yd. He denies any shortness of breath, orthopnea, PND P complains of dizziness occasionally when he is doing something around the kitchen but this last for few seconds. This is not orthostatic in nature. Denies any syncopal episodes. No prolonged palpitations or irregular heartbeat. No bleeding issues or neurologic events. He is cu rrently on dual agent with Eliquis and aspirin. [facility] Medical History CAD (coronary artery disease) HTN (hypertension) Hyperlipidemia Other obstructive and reflux uropathy Polymyalgia rheumatica RBBB Right inguinal hernia Urinary tract infection Surgical History History of colonoscopy Hx of cardiac cath Stented coronary artery Family History Father CVD (cardiovascular disease) Mother CVD (cardiovascular disease) Social History Housing: House Alcohol intake: never Patient Tobacco Use Status: Never used Tobacco e-Cigarette/Vaping Use: Never Used Second Hand Smoke Exposure: No service: No Current occupational status: retired Current occupational exposures/hazards: No Cognitive needs: No Hearing needs: Yes Vision needs: Yes Review of Systems Const Denies chills, Denies fatigue, Denies fever(s), Denies frequent falls, Denies weakness, Denies weight gain and Denies weight loss ENT Denies dizziness Card Denies chest pain, Denies leg edema, Denies lightheadedness, Denies palpitations, Denies dyspnea, Denies dyspnea on exertion, Denies orthopnea and Denies other (loss of consciousness) Resp Denies cough, Denies dyspnea and Denies dyspnea on exertion GI Denies hematochezia and Denies change in stool character Musc Denies abnormal gait, Denies muscle weakness, Denies numbness, Denies radiating pain into limb and Denies tingling Neuro Denies abnormal gait, Denies dizziness, Denies frequent falls, Denies numbness, Denies tingling and Denies weakness Endo Denies fatigue and Denies palpitations Physical Exam Vital Signs: Last Vital Signs Pulse 61 06/19/23 08:49 BP 120/70 06/19/23 08:49 BMI result Body Mass Index 25.6 Const General: cooperative, healthy appearing, comfortable, no acute distress, alert and awake Nutritional Appearance: average body habitus and well nourished Orientation/consciousness: patient oriented x3 Limitations: physical limitations and other limitations ( Altered gait due to arthritis) HEENT Head: Yes normal to inspection, Yes normocephalic and Yes atraumatic Eyes General: appearance normal, both eyes and all related structures Neck Neck: Yes full ROM, Yes trachea midline and Yes no JVD Carotids: other ( no carotid bruits) Chest Chest palpation & inspection: normal inspection of the chest Resp Effort & Inspection: normal respiratory effort Auscultation: clear to auscultation bilaterally Cardio Jugular venous distension: no JVD Palpation: normal PMI Rate: regular rate Rhythm: regular rhythm Heart sounds: S1 normal heart sound present, S2 normal heart sound present and Other heart sounds present ( soft S4) Peripheral pulses: Peripheral pulses 2+ throughout GI Inspection: Yes normal to inspection Auscultation: normal bowel sounds Skin General skin exam: no rashes or lesions noted, elasticity normal and turgor normal Neuro General: patient oriented x3 and no focal motor deficits Extrem General: Yes no clubbing, cyanosis or edema Psych Appearance: grossly normal Office Procedures EKG Details: EKG shows normal sinus rhythm with biatrial enlargement with right bundle-branch block and QS pattern in lead V1 V2 consistent with septal infarct [id number], Complete Assessment & Plan Assessment & Plan (1) Preoperative cardiovascular examination: Code(s): Z01.810 - Encounter for preprocedural cardiovascular examination Plan: Preoperative cardiovascular risk stratification in this elderly gentleman with limited exercise capacity, difficult to evaluate with prior CAD and stenting with anterior STEMI in 2002. He is to undergo intermediate risk surgery. I thing better risk stratification with exercise myocardial perfusion imaging to evaluate for exercise capacity as well as myocardial ischemia that may determine perioperative cardiovascular risk. This was discussed with him. He understands and agrees. This will be scheduled in near future. Further recommendations based on the findings of the stress test. (2) CAD (coronary artery disease): Code(s): I25.10 - Atherosclerotic heart disease of [place] coronary artery without angina pectoris Plan: CAD with prior STEMI and LAD stent. No current symptoms of angina. Myocardial perfusion imaging as above for preoperative cardiovascular risk stratification prior to noncardiac surgery. There is no indication of aspirin therapy as already on oral anticoagulation therapy. Continue high-intensity statin therapy. Continue aggressive blood pressure control which is currently well optimized. Continue maintain activity level as tolerated. (3) Paroxysmal atrial fibrillation: Code(s): I48.0 - Paroxysmal atrial fibrillation Plan: Paroxysmal atrial fibrillation without any obvious symptoms. Not sure if his symptoms of dizziness associated with atrial fibrillation. There is no correlation. Continue full oral anticoagulation with Eliquis at 5 mg b.i.d.. Semi annual renal function test should be pursued. Continue rate control with carvedilol. There is no indication for antiarrhythmic drug therapy at this point time. Will follow up in the clinic in 1 year's time, sooner p.r.n.. Thank you for allowing me to partake in his care Orders: Orders CA stress test Today I25.10 - Atherosclerotic heart disease of [place] coronary artery without angina pectoris, Z01.810 - Encounter for preprocedural cardiovascular examination NM cardiolite stress test 2 Weeks I25.10 - Atherosclerotic heart disease of [place] coronary artery without angina pectoris, R07.9 - Chest pain, unspecified Coding Level of Care Code Est Pt Level 4 (88857) Diagnoses Preoperative cardiovascular examination Z01.810 CAD (coronary artery disease) I25.10 Paroxysmal atrial fibrillation I48.0 CPT Codes EKG - CPT: 37880-[id number], Complete ([id number])
== END 2023-06-19 09:08 | disposition home or self-care (01) ==
PROVIDERS: PCP Internal Medicine; Referring Provider Internal Medicine; Visit Provider Internal Medicine Cardiovascular Disease
DX: I25.10 Atherosclerotic heart disease of native coronary artery without angina pectoris (principal); I48.0 Paroxysmal atrial fibrillation; Z01.810 Encounter for preprocedural cardiovascular examination
CPT/HCPCS: 93010; 99214

== ENCOUNTER → 2023-06-19 08:29 | Outpatient (BNVA) | payer MEDICARE, SELFPAY | PROVIDERS: PCP Internal Medicine; Referring Provider Internal Medicine; Visit Provider Internal Medicine Cardiovascular Disease | DX: Z01.810 Encounter for preprocedural cardiovascular examination (principal); I25.10 Atherosclerotic heart disease of native coronary artery without angina pectoris; I48.0 Paroxysmal atrial fibrillation | CPT/HCPCS: 93005; 99212 ==

== ENCOUNTER → 2023-07-05 09:22 | Outpatient (REF) | payer MEDICARE, SELFPAY ==
--- NOTE | ~2023-07-05 | NM_ITS ---
EXERCISE MYOCARDIAL PERFUSION STUDY INDICATION: Coronary disease, preoperative evaluation, assess for ischemia TECHNIQUE: The patient was brought in for an exercise perfusion study on 07/05/2023. Patient performed exercise as per David protocol and was injected 30 mCi of sestamibi once target heart rate was achieved. Images were obtained using the SPECT gamma camera interlaced with the gating device. Images were obtained in supine position. Resting perfusion study was performed on 07/06/2023. Patient was administered 30 mCi of sestamibi intravenously at rest. Images were then obtained in supine position. Images were processed with the software and compared side to side in short axis, horizontal long axis and vertical long axis views. Total DLP 84mGy-cm. FINDINGS: Raw images were reviewed. The stress perfusion study showed severely diminished tracer uptake in the mid to distal lateral wall. This is still seen with CT attenuation correction. The gated study shows normal LV systolic function with calculated LVEF of 64%. LV cavity is normal in size. The gated study shows diminished lateral wall contractility. Resting study shows diminished tracer uptake in the distal part of anterior septum. Some improvement with CT attenuation correction. Gating at rest reveals diminished contractility in the anterior septum but otherwise unremarkable. Gated LVEF 61%. The findings are consistent with reversible defect in the mid to distal lateral wall. Rest only defect in the anterior septum possibly artifactual as this area seems perfused on the stress images. NM/NM cardiolite stress test IMPRESSION: 1. Myocardial perfusion imaging study shows severe ischemia in the mid to distal lateral wall. 2. Gated LVEF is 72% during stress and 61% during rest. 3. Transient ischemic dilatation not present. EKG component of the test reported separately.
--- NOTE | 2023-07-05 09:28 | CA_ITS ---
Acquisition Time: 2023-07-05 09:54:06 Total Exercise Time: 00:08:34 Test Indications: AFIB, RBBB Medications: SEE H Protocol: LAUREN Max HR: 187 BPM 132% of Pred: 141 BPM Max BP: 210/088 mmHG Max Work Load: 9.8 METS Exercise stress test exercise 8 min 34 min achieving 95% MPHR (manually measured) of Lauren protocol stage 3 held reduced speed to 3.1 mph, 15% grade, without anginal symptoms, with isolated PVCs, with hypertensive response to exercise, without EKG changes. Nuclear images pending. Test reviewed with Dr. Weber. Referred By: Fletcher White Overread By: WILLIAM WEBER
== END ==
LOC: HO.CARD 09:22
PROVIDERS: PCP Internal Medicine; Visit Provider Internal Medicine Cardiovascular Disease
DX: Z01.810 Encounter for preprocedural cardiovascular examination (principal); R07.9 Chest pain, unspecified; I25.10 Atherosclerotic heart disease of native coronary artery without angina pectoris
CPT/HCPCS: 78452; 93017; A9500

== ENCOUNTER → 2023-07-05 09:28 | Outpatient (BNV) | payer MEDICARE, SELFPAY | PROVIDERS: PCP Internal Medicine; Visit Provider Internal Medicine | DX: I25.10 Atherosclerotic heart disease of native coronary artery without angina pectoris (principal) | CPT/HCPCS: 78452; 93016; 93018 ==

== ENCOUNTER → 2023-07-25 10:17 | Outpatient (BNVA) | payer MEDICARE, SELFPAY | PROVIDERS: Visit Provider Orthopaedic Surgery ==

== ENCOUNTER 2023-07-25 11:20 | Outpatient (REF) | payer MEDICARE, SELFPAY ==
[2023-07-25 13:18] LABS: MANUAL DIFF FLAG NO
[2023-07-25 13:22] LABS: Basophils Absolute Auto 0.1 X10*3/uL (0.0-0.2); Basophils Percent Auto 0.7 % (0-2); Eosinophils Absolute Auto 0.1 X10*3/uL (0.0-0.4); Eosinophils Percent Auto 1.9 % (0-4); Hematocrit 47.7 % (42.0-52.0); Hemoglobin 15.9 g/dl (14.0-18.0); Imm Gran Abs Auto 0.02 X10*3/uL (0.00-0.03); Imm Gran Pct Auto 0.3 % (0.0-0.4); Lymphocytes Percent Auto 13.5 % (20-40); Mean Corpuscular HGB Conc 33.3 g/dl (31.0-36.0); Mean Corpuscular Hemoglobin 32.2 pg (27.0-33.0); Mean Corpuscular Volume 96.6 fL (80.0-98.0); Mean Platelet Volume 12.1 fL (9.4-12.4); Monocytes Absolute Auto 0.8 X10*3/uL (0.1-1.2); Monocytes Percent Auto 11.3 % (2-11); Neutrophils Absolute Auto 5.3 x10*3/uL (2.0-8.3); Neutrophils Percent Auto 72.3 % (45-73); Platelet Count 189 X10*3/uL (160-400); Red Blood Count 4.94 X10*6/uL (4.60-5.80); Red Cell Distribution Width 12.4 % (11.0-16.0); White Blood Count 7.3 X10*3/uL (4.8-10.8)
[2023-07-25 13:59] LABS: Anion Gap 9 (12-20); Blood Urea Nitrogen 20 mg/dL (9-16); Calcium 9.9 mg/dL (8.4-10.2); Carbon Dioxide 30 mmol/L (22-29); Chloride 106 mmol/L (96-108); Estimated Glomerular Filt Rate > 60; Glucose Random 92 mg/dL (60-115); Potassium 4.6 mmol/L (3.3-5.1); Sodium 140 mmol/L (135-145)
== END 2023-07-25 11:21 | disposition home or self-care (01) ==
LOC: HO.10HDL 11:20
PROVIDERS: Visit Provider Orthopaedic Surgery
DX: Z01.812 Encounter for preprocedural laboratory examination (principal)
CPT/HCPCS: 36415; 80048; 85025

== ENCOUNTER 2023-08-08 13:22 | Outpatient (AMB) | payer MEDICARE, SELFPAY ==
[2023-08-08 13:27] VITALS: BP 132/64; PULSE 56; O2SAT 94; BMI 25.5
--- NOTE | 2023-08-08 13:27 | A.OFFPC_ITS ---
Vital Signs 08/08/23 13:27 Height 5 ft 6 in Weight 158 lb BMI 25.5 BP 132/64 Blood Pressure Location Lt brachial Position Sitting Pulse 56 Pulse Source Pulse Oximeter Pulse Oximetry (%) 94 Oxygen Delivery Method Room Air Intake Visit Reasons: 08/28/23 Left Knee Surgery Cleaner Assistant Required: No Operating Room Nurse: Not Required per policy Accompanied by: Self / Same As Patient Allergies No Known Allergies Allergy (Verified 08/08/23 13:28) Medication List - Last Reconciled 08/08/23 by Rikki Joe MD apixaban (Eliquis) 5 mg PO BID atorvastatin 40 mg PO DAILY calcium carbonate-vitamin D3 600 mg-10 mcg (400 unit) (Calcium with Vitamin D) 1 tab PO DAILY carvedilol 12.5 mg PO BID finasteride 5 mg PO DAILY 90 days Tobacco use date assessed: 06/14/23 Fall risk assessment: No Falls in past year Last assessed Fall Risk: 08/08/23 Dental Screening Dental Screen Date: 08/08/23 Did you have a dental visit in the last 12 months?: Yes Did you have a dental problem in the last 6 months where you did not have access to dental care?: No Was dental information given to patient?: Patient has dentist HPI 08/28/23 Left Knee Surgery HPI Details Having a left knee replaced next month; has stable CAD w/o recurrent chest pain for years; AFIB on rx and hyperlipidemia; BPH on rx PFSH Medical History Right inguinal hernia Urinary tract infection Other obstructive and reflux uropathy Polymyalgia rheumatica RBBB HTN (hypertension) Hyperlipidemia CAD (coronary artery disease) Surgical History History of colonoscopy Stented coronary artery Hx of cardiac cath Family History Father CVD (cardiovascular disease) Mother CVD (cardiovascular disease) Social History Housing: House Alcohol intake: never Patient Tobacco Use Status: Never used Tobacco e-Cigarette/Vaping Use: Never Used Second Hand Smoke Exposure: No service: No Current occupational status: retired Current occupational exposures/hazards: No Cognitive needs: No Hearing needs: Yes Vision needs: Yes Questionnaire PHQ-9 Over the last 2 weeks, how often have you been bothered by any of the following problems? 1. Little interest or pleasure in doing things: not at all 2. Feeling down, depressed, or hopeless: not at all 3. Trouble falling or staying asleep, or sleeping too much: not at all 4. Feeling tired or having little energy: not at all 5. Poor appetite or overeating: not at all 6. Feeling bad about yourself - or that you are a failure or have let yourself or your family down: not at all 7. Trouble concentrating on things, such as reading the newspaper or watching television: not at all 8. Moving or speaking so slowly that other people could have noticed. Or the opposite - being so fidgety or restless that you have been moving around a lot more than usual: not at all 9. Thoughts that you would be better off or of hurting yourself in some way: not at all Total score: 0 Depression Screening Interpretation: Negative 26731 - PHQ-9 Billing: Yes Source: Developed by Drs. Juan Carlos Finch, Heike Roberson, Justin Rene and colleagues, with an educational suzanne from [employer]. Thrive Questionnaire Date Thrive assessed: 12/11/22 AUDIT C Alcohol Use Questionnaire (AUDIT-C) 1. How often do you have a drink containing alcohol?: Never Total Score: 0 Score Reviewed/Action Taken: No ROBE-7 AMB Questionnaire ROBE-7 Date ROBE - 7 assessed: 12/11/22 Source: Developed by Drs. Juan Carlos Finch, Heike Roberson, Justin Rene and colleagues, with an educational suzanne from [employer]. Review of Systems Const Denies chills, Denies fatigue, Denies headache(s) and Denies weight loss Eyes Denies change in vision, Denies diplopia and Denies eye pain ENT Denies vertigo, Denies dizziness, Denies headache(s) and Denies nasal discharge Card Denies chest pain, Denies rapid heart rate and Denies dyspnea on exertion Resp Denies chest congestion, Denies cough, Denies pain with cough and Denies dyspnea on exertion GI Denies abdominal pain, Denies hematochezia and Denies change in bowel habits Musc Denies myalgias, Denies arthralgias and Denies joint swelling Skin/Breast Denies lesions and Denies unusual bruising Neuro Denies vertigo, Denies dizziness, Denies headache(s) and Denies focal weakness Endo Denies fatigue Physical exam (Primary Care) Vital Signs: Last Vital Signs Pulse 56 08/08/23 13:27 BP 132/64 08/08/23 13:27 Pulse Ox 94 08/08/23 13:27 Oxygen Delivery Method Room Air 08/08/23 13:27 BMI result Body Mass Index 25.5 Tobacco/Smoking Status: Tobacco use Status Tobacco use date assessed 06/14/23 08/08/23 13:31 Patient Tobacco Use Status Never used Tobacco 08/08/23 13:31 e-Cigarette/Vaping Use Never Used 08/08/23 13:31 PHQ-9: PHQ-9 Score PHQ-9: Total score 0 08/08/23 13:31 Depression Screening Interpretation: Negative Thrive Assessment: Date of Thrive Assessment Date Thrive assessed 12/11/22 08/08/23 13:31 Const General: cooperative, healthy appearing and no acute distress Orientation/consciousness: oriented to person, oriented to place and oriented to time HENMT Head: Yes normal to inspection, Yes normocephalic and Yes atraumatic Mouth: Normal oral and palatal mucosa present and tongue normal Throat: Yes posterior oropharynx normal and Yes uvula midline Eyes General: appearance normal, both eyes and all related structures Neck Neck: Yes normal visual inspection, Yes full ROM and Yes no lymphadenopathy Thyroid: Thyroid normal Carotids: normal carotid upstroke Chest Chest palpation & inspection: normal inspection of the chest Resp Effort & Inspection: normal respiratory effort and able to speak in complete sentences Auscultation: clear to auscultation bilaterally Cardio Jugular venous distension: no JVD Palpation: normal PMI Rate: regular rate Rhythm: regular rhythm Heart sounds: S1 normal heart sound present and S2 normal heart sound present GI Inspection: Yes normal to inspection Palpation (GI): Soft to palpation and No hepatosplenomegaly present Auscultation: normal bowel sounds General: Yes no CVA tenderness Back/Spine/Pelvis Back: no CVA tenderness Skin General skin exam: no rashes or lesions noted Neuro General: oriented to person, oriented to place and oriented to time Extrem General: Yes normal to inspection and Yes full ROM Assessment and Plan Assessment & Plan (1) Pre-op exam: Code(s): Z01.818 - Encounter for other preprocedural examination Plan: low risk for cardiovascular complications; cleared for surgery (2) Paroxysmal atrial fibrillation: Code(s): I48.0 - Paroxysmal atrial fibrillation Plan: should stop Eliquis 1 week before procedure (3) BPH w urinary obs/LUTS: Code(s): N40.1 - Benign prostatic hyperplasia with lower urinary tract symptoms; N13.8 - Other obstructive and reflux uropathy Plan: same rx (4) CAD (coronary artery disease): Code(s): I25.10 - Atherosclerotic heart disease of [place] coronary artery without angina pectoris Plan: stable; per cardiology (5) Hyperlipidemia: Code(s): E78.5 - Hyperlipidemia, unspecified Coding Level of Care Code Est Pt Level 4 (44414) Diagnoses Pre-op exam Z01.818 Paroxysmal atrial fibrillation I48.0 BPH w urinary obs/LUTS N40.1; N13.8 CAD (coronary artery disease) I25.10 Hyperlipidemia E78.5
== END 2023-08-08 14:25 | disposition home or self-care (01) ==
PROVIDERS: PCP Internal Medicine; Visit Provider Internal Medicine
DX: N40.1 Benign prostatic hyperplasia with lower urinary tract symptoms (principal); Z01.818 Encounter for other preprocedural examination; I48.0 Paroxysmal atrial fibrillation; N13.8 Other obstructive and reflux uropathy; I25.10 Atherosclerotic heart disease of native coronary artery without angina pectoris; E78.5 Hyperlipidemia, unspecified
CPT/HCPCS: 99214

== ENCOUNTER 2023-08-21 | Outpatient (REF) | payer MEDICARE, SELFPAY ==
[2023-08-21 11:52] VITALS: BP 144/80; PULSE 60; RESP 16; O2SAT 97; BMI 25.0
--- NOTE | 2023-08-21 12:16 | HO.ANESPROP2 ---
HPI - Anesthesia Eval Consult details Narrative: 77yo M for Left Knee Replacement Total, pending cardiac clearance Cardiac clearance pending Coronary CTA 08/24 (abnormal stress) PCP cleared No recent illness No CP/SOB with yard work, [employer] [place] for PAF. CAD/MT,stent 2002. Follows [facility] cardiology PMR, no steroids since 2019 without issue [facility] Active Problems Active Problems: All Active Problems (Updated 08/21/23 @ 12:14 by Mary Ellen Garcia, RN) Osteoarthritis of left knee (Acute) Pre-op exam (Acute) Abnormal stress test (Acute) Paroxysmal atrial fibrillation (Acute) Dizziness (Acute) Cerumen impaction (Acute) Inguinal hernia (Acute) Adult general medical exam (Acute) Screening for diabetes mellitus (Acute) Acute retention of urine (Acute) Nocturia more than twice per night (Acute) Weak urinary stream (Acute) BPH w urinary obs/LUTS (Acute) Primary osteoarthritis of left knee (Acute) Primary osteoarthritis of left knee (Acute) Cerumen impaction (Acute) Hypertension (Acute) Right inguinal hernia (Acute) Other obstructive and reflux uropathy (Acute) Polymyalgia rheumatica (Acute) CAD (coronary artery disease) (Acute) Hyperlipidemia (Acute) RBBB (Acute) Stented coronary artery (Acute) HTN (hypertension) (Acute) Past Medical History Medical History (Updated 08/23/23 @ 11:31 by Beau Dixon PA-C) Dizzy spells Right inguinal hernia Urinary tract infection Other obstructive and reflux uropathy Polymyalgia rheumatica RBBB HTN (hypertension) Hyperlipidemia CAD (coronary artery disease) Family History Family History Father CVD (cardiovascular disease) Mother CVD (cardiovascular disease) Family history of problems with anesthesia: No Surgical History Surgical History History of colonoscopy Stented coronary artery Hx of cardiac cath History of Problems with Anesthesia: No Social History Social History Household Members: None Housing: House Are you a primary critical care physician assistant to a significant other at home: No Do you presently have visiting nurse or other home services: No Alcohol intake: never Patient Tobacco Use Status: Never used Tobacco e-Cigarette/Vaping Use: Never Used Second Hand Smoke Exposure: No service: No Current occupational status: retired Current occupational exposures/hazards: No Cognitive needs: No Hearing needs: Yes Vision needs: Yes Meds Allergies Allergy/AdvReac Type Severity Reaction Status Date / Time No Known Allergies Allergy Verified 08/23/23 11:28 Home Medications Medication Instructions Recorded Confirmed Last Taken Type calcium carbonate 600 mg-vitamin 1 tab PO BID 08/18/20 08/23/23 Unknown History D3 10 mcg (400 unit) tablet (Calcium with Vitamin D) finasteride 5 mg tablet 5 mg PO DAILY@1700 08/21/23 08/23/23 Unknown History Exam Exam Date and Time: August 21, 2023 1216 Height,Weight and Vital Signs: Height 5 ft 6 in Weight 70.307 kg Last Vital Signs Pulse 60 08/21/23 11:52 Resp 16 08/21/23 11:52 BP 144/80 H 08/21/23 11:52 Pulse Ox 97 08/21/23 11:52 O2 Del Method Room Air 08/21/23 11:52 Pertinent Lab Results Pertinent Lab Results: Laboratory Tests 07/25/23 11:26 WBC 7.3 Hgb 15.9 Hct 47.7 Plt Count 189 Sodium 140 Potassium 4.6 Chloride 106 Carbon Dioxide 30 H BUN 20 H Creatinine 0.81 Airway Mallampati Class: II TM Dist: >3cm Neck ROM: Full Partial: Upper and Lower (x 2) Heart: RRR Lungs: CTAB Assessment and Plan Assessment Anesthesia Assessment: Anesthesia Plan Discussed and PAT Visit Final Anesthetic Review Family History of Problems with Anesthesia: No History of Problems with Anesthesia: No
== END 2023-08-21 00:01 | disposition home or self-care (01) ==
LOC: HO.PAT
PROVIDERS: PCP Internal Medicine; Visit Provider Orthopaedic Surgery
DX: Z01.818 Encounter for other preprocedural examination (principal)
CPT/HCPCS: 86850; 86900; 86901; 87640; 87641

== ENCOUNTER 2023-08-23 11:16 | Outpatient (AMB) | payer MEDICARE, SELFPAY ==
--- NOTE | 2023-08-23 11:24 | MHC.OFFVIS ---
Intake Vital Signs 08/23/23 11:28 Height 5 ft 6 in Weight 158 lb BMI 25.5 Intake Visit Reasons: Preop LT TKA 08/28/23 NE Intake Note: Mohsen a 77 year old male who presents today for a preoperative left TKA, DOS 08/28/23 NE. Pain management agreement reviewed and signed. Allergies No Known Allergies Allergy (Verified 08/23/23 11:28) Medication List - Last Reconciled 08/23/23 by Beau Dixon PA-C apixaban (Eliquis) 5 mg PO BID atorvastatin 40 mg PO BEDTIME calcium carbonate-vitamin D3 600 mg-10 mcg (400 unit) (Calcium with Vitamin D) 1 tab PO BID carvedilol 12.5 mg PO BID finasteride 5 mg PO DAILY@1700 walker Folding Front wheeled walker HPI HPI Comments History of Present Illness Details Mr. Naylor presents to the office today for preop visit. He is scheduled for left total knee arthroplasty with Dr. Starr. He continues to have ongoing pain and difficulty with ambulation in the left knee, which is affecting his quality of life; therefore, he has elected to move forward with surgery. [facility] Medical History (Updated 08/23/23 @ 11:31 by Beau Dxion PA-C) Dizzy spells Right inguinal hernia Urinary tract infection Other obstructive and reflux uropathy Polymyalgia rheumatica RBBB HTN (hypertension) Hyperlipidemia CAD (coronary artery disease) Surgical History History of colonoscopy Stented coronary artery Hx of cardiac cath Family History Father CVD (cardiovascular disease) Mother CVD (cardiovascular disease) Social History Household Members: None Housing: House Are you a primary healthcare economics manager to a significant other at home: No Do you presently have visiting nurse or other home services: No Alcohol intake: never Patient Tobacco Use Status: Never used Tobacco e-Cigarette/Vaping Use: Never Used Second Hand Smoke Exposure: No Use of substances other than those prescribed or required for medical reasons: No Have you been hit, kicked, punched, or otherwise hurt by someone within the past year? If so, by whom?: No Are you DNR?: No Advance Directives: No Advance Directives Information Provided: Yes Advance Directives on File: No Recently lost weight without trying: No Nutrition Risks: Surgical patient >75years service: No Current occupational status: retired Current occupational exposures/hazards: No Cognitive needs: No Hearing needs: Yes Vision needs: Yes Review of Systems Const All systems reviewed & are unremarkable except as noted in HPI and below Physical Exam Vital Signs: BMI result Body Mass Index 25.5 Const General: cooperative and no acute distress Orientation/consciousness: patient oriented x3 HEENT Head: Yes normal to inspection, Yes normocephalic and Yes atraumatic Eyes General: appearance normal, both eyes and all related structures Neck Neck: Yes normal visual inspection and Yes no lymphadenopathy Resp Effort & Inspection: normal respiratory effort and able to speak in complete sentences Cardio Rate: regular rate Peripheral pulses: Peripheral pulses 2+ throughout GI Inspection: Yes normal to inspection Palpation (GI): Soft to palpation Skin General skin exam: no rashes or lesions noted Neuro General: patient oriented x3 Extrem Other: Left knee: Normal to inspection. No wounds or abrasions. ROM 0-95 degrees. Calf supple, nontender. NVI. Psych Appearance: grossly normal Mental Status: mental status grossly normal Assessment & Plan Assessment & Plan (1) Osteoarthritis of left knee: Code(s): M17.12 - Unilateral primary osteoarthritis, left knee Qualifiers: Osteoarthritis type: primary Qualified Code(s): M17.12 - Unilateral primary osteoarthritis, left knee Plan: I discussed in detail the procedure and what to expect pre and post operatively. We discussed the risks, benefits and alternatives to the surgery as well as the rehabilitation course. The risks; which include, but are not limited to infection, bleeding, nerve injury, ongoing pain, swelling, and stiffness, perioperative risk of injury to bones and soft tissues, and blood clots. I?ve answered all questions and with their understanding they have consented to move forward with Left total knee arthroplasty with Dr. Starr Patient Instructions: Scribed for Beau Dixon PA-C, by Peter Romano medical esthetician, on 08/23/2023 at 11:30 AM EST. IBeau PA-C, have personally reviewed and agree with the information entered by the scribe. Coding Level of Care Code Est Pt Level 3 (84321) Diagnoses Primary osteoarthritis of left knee M17.12 Osteoarthritis type: primary
[2023-08-23 11:28] VITALS: BMI 25.5
== END 2023-08-23 11:57 | disposition home or self-care (01) ==
PROVIDERS: Visit Provider Physician Assistant
DX: M17.12 Unilateral primary osteoarthritis, left knee (principal)
CPT/HCPCS: 99213

== ENCOUNTER → 2023-08-23 11:16 | Outpatient (BNVA) | payer MEDICARE, SELFPAY | PROVIDERS: Visit Provider Physician Assistant | DX: M17.12 Unilateral primary osteoarthritis, left knee (principal) | CPT/HCPCS: 99212 ==

== ENCOUNTER 2023-08-30 08:39 | Outpatient (REF) | payer MEDICARE, SELFPAY ==
[2023-08-30 09:00] LABS: MANUAL DIFF FLAG NO
[2023-08-30 09:05] LABS: Basophils Percent Auto 0.6 % (0-2); Eosinophils Absolute Auto 0.2 X10*3/uL (0.0-0.4); Eosinophils Percent Auto 2.9 % (0-4); Hematocrit 48.7 % (42.0-52.0); Hemoglobin 16.6 g/dl (14.0-18.0); Imm Gran Abs Auto 0.02 X10*3/uL (0.00-0.03); Imm Gran Pct Auto 0.3 % (0.0-0.4); Lymphocytes Absolute Auto 1.2 X10*3/uL (1.2-4.9); Lymphocytes Percent Auto 19.1 % (20-40); Mean Corpuscular HGB Conc 34.1 g/dl (31.0-36.0); Mean Corpuscular Hemoglobin 31.9 pg (27.0-33.0); Mean Corpuscular Volume 93.5 fL (80.0-98.0); Mean Platelet Volume 10.8 fL (9.4-12.4); Monocytes Absolute Auto 0.6 X10*3/uL (0.1-1.2); Monocytes Percent Auto 9.3 % (2-11); Neutrophils Absolute Auto 4.2 x10*3/uL (2.0-8.3); Neutrophils Percent Auto 67.8 % (45-73); Platelet Count 201 X10*3/uL (160-400); Red Blood Count 5.21 X10*6/uL (4.60-5.80); Red Cell Distribution Width 12.1 % (11.0-16.0); White Blood Count 6.2 X10*3/uL (4.8-10.8)
[2023-08-30 09:18] LABS: INTERNATIONAL NORM RATIO 1.2 (0.9-1.1); Prothrombin Time 14.6 SEC (11.1-13.3)
[2023-08-30 09:58] LABS: Anion Gap 13 (12-20); Blood Urea Nitrogen 17 mg/dL (9-16); Calcium 10.1 mg/dL (8.4-10.2); Carbon Dioxide 28 mmol/L (22-29); Chloride 103 mmol/L (96-108); Estimated Glomerular Filt Rate > 60; Glucose Random 98 mg/dL (60-115); Potassium 4.6 mmol/L (3.3-5.1); Sodium 139 mmol/L (135-145)
== END 2023-08-30 08:40 | disposition home or self-care (01) ==
LOC: HO.LAB 08:39
PROVIDERS: PCP Internal Medicine; Visit Provider Nurse Practitioner
DX: R94.39 Abnormal result of other cardiovascular function study (principal); R93.1 Abnormal findings on diagnostic imaging of heart and coronary circulation; I25.10 Atherosclerotic heart disease of native coronary artery without angina pectoris; I10 Essential (primary) hypertension; Z95.5 Presence of coronary angioplasty implant and graft
CPT/HCPCS: 36415; 80048; 85025; 85610

== ENCOUNTER → 2023-09-04 23:59 | Outpatient (BNV) | payer MEDICARE, SELFPAY | PROVIDERS: PCP Internal Medicine; Visit Provider Internal Medicine Cardiovascular Disease | DX: I25.10 Atherosclerotic heart disease of native coronary artery without angina pectoris (principal); R93.1 Abnormal findings on diagnostic imaging of heart and coronary circulation | CPT/HCPCS: 92928; 93458; 99152 ==

== ENCOUNTER 2023-09-13 09:01 | Outpatient (AMB) | payer MEDICARE, SELFPAY ==
[2023-09-13 09:22] VITALS: BP 120/62; PULSE 64; BMI 25.6
--- NOTE | 2023-09-13 09:22 | A.OFFVIS_ITS ---
Intake Vital Signs 09/13/23 09:22 Height 5 ft 6 in Weight 158 lb 11.725 oz BMI 25.6 BP 120/62 Blood Pressure Location Lt brachial Position Sitting Pulse 64 Pulse Source Pulse Oximeter Intake Visit Reasons: Follow up post cardiac cath Rehabilitation Clerk Required: No Allergies No Known Allergies Allergy (Verified 09/13/23 09:24) Medication List - Last Reconciled 09/13/23 by Trish Lobato NP-C apixaban (Eliquis) 5 mg PO BID atorvastatin 40 mg PO DAILY calcium carbonate-vitamin D3 600 mg-10 mcg (400 unit) (Calcium with Vitamin D) 1 tab PO BID carvedilol 12.5 mg PO BID finasteride 5 mg PO DAILY@1700 walker Folding Front wheeled walker HPI Follow up post cardiac cath HPI Details Mohsen is a 77-year-old male with past medical history of hypertension, hyperlipidemia, right bundle branch block, CAD with anterior STEMI 2002, paroxysmal atrial fibrillation who had nuclear stress test which was abnormal leading to CTA of the coronary arteries which showed moderate to severe CAD. This was followed by cardiac catheterization showing significant LAD stenosis, JONATHAN placed to the mid LAD and 1st diagonal. Today he reports he has been feeling well since his cardiac procedure. He tells me he was not feeling any chest discomfort or shortness of breath prior to the procedure and at this point he still feels unchanged. He denies any chest discomfort at rest or with activity. No shortness of breath, palpitations, presyncope, syncope, PND, orthopnea or edema. His right radial catheterization site is feeling good however has significant resolving ecchymosis. He continues on Eliquis, no bleeding issues reported otherwise. Good activity tolerance, mild left knee discomfort and will need total knee replacement in the future. [facility] Medical History Dizzy spells Right inguinal hernia Urinary tract infection Other obstructive and reflux uropathy Polymyalgia rheumatica RBBB HTN (hypertension) Hyperlipidemia CAD (coronary artery disease) Surgical History History of colonoscopy Stented coronary artery Hx of cardiac cath Family History Father CVD (cardiovascular disease) Mother CVD (cardiovascular disease) Social History Household Members: None Housing: House Are you a primary transitional care manager to a significant other at home: No Do you presently have visiting nurse or other home services: No Alcohol intake: never Patient Tobacco Use Status: Never used Tobacco e-Cigarette/Vaping Use: Never Used Second Hand Smoke Exposure: No service: No Current occupational status: retired Current occupational exposures/hazards: No Cognitive needs: No Hearing needs: Yes Vision needs: Yes Review of Systems Const All systems reviewed & are unremarkable except as noted in HPI and below ENT Denies dizziness Card Denies chest pain, Denies chest pain at rest, Denies chest pain with activity, Denies rapid heart rate, Denies pedal edema, Denies edema, Denies leg edema, Denies lightheadedness, Denies palpitations, Denies dyspnea, Denies dyspnea on exertion and Denies orthopnea Resp Denies cough, Denies dyspnea and Denies dyspnea on exertion GI Denies hematochezia and Denies change in stool character Musc Denies abnormal gait, Denies muscle cramps, Denies muscle weakness, Denies numbness, Denies radiating pain into limb, Denies stiffness and Denies tingling Neuro Denies abnormal gait, Denies dizziness, Denies numbness and Denies tingling Endo Denies palpitations Physical Exam Vital Signs: Last Vital Signs Pulse 64 09/13/23 09:22 BP 120/62 09/13/23 09:22 BMI result Body Mass Index 25.6 Const General: cooperative, healthy appearing, comfortable and no acute distress Orientation/consciousness: patient oriented x3 Neck Neck: Yes normal visual inspection Resp Effort & Inspection: normal respiratory effort Auscultation: clear to auscultation bilaterally, no crackles, no rales, no rhonc hi and no wheezes Cardio Jugular venous distension: no JVD Rate: regular rate Rhythm: regular rhythm Heart sounds: S1 normal heart sound present, S2 normal heart sound present, no murmurs and no rubs Neuro General: patient oriented x3 Extrem Other: right radial cath with large area of resolving ecchimosis, easily palpable radial pulse, hand assessment normal General: Yes normal to inspection Psych Appearance: grossly normal Mental Status: mental status grossly normal Speech and movement: Normal speech and movement present Assessment & Plan Assessment & Plan (1) CAD (coronary artery disease): Code(s): I25.10 - Atherosclerotic heart disease of [place] coronary artery without angina pectoris Plan: History of coronary artery disease with anterior STEMI 2002. Recently as part of preop evaluation he underwent a nuclear stress test on 07/06/2023 showing severe ischemia in the mid to distal lateral wall. He then had a CTA of the coronary arteries which showed extensive calcific and mixed plaque in the LAD and 1st diagonal, severe stenosis of the proximal segment of the distal RCA. He underwent cardiac catheterization on 09/04/2023 showing mid LAD 95% stenosis, significant stenosis in the 1st diagonal, left circumflex moderate disease, right coronary artery moderate diffuse disease. He had JONATHAN placed to the mid LAD and 1st diagonal. Today he reports feeling well, overall unchanged. He denies having anginal symptoms prior to his stenting and he continues to deny any angina. Right radial catheterization site healing well. He is not on aspirin as he is on Eliquis. He is also on carvedilol. No bleeding issues reported. Continue moderate dose atorvastatin with ideal LDL goal less than 70, continue carvedilol. Signs and symptoms of angina reviewed with him. He declines cardiac rehab. Cardiology follow-up visit in 3 months, sooner if needed (2) Stented coronary artery: Comment: Status post anterior STEMI and LAD stent in 2002. Details of stenting not available, Stent to mid LAD and 1st diagonal 09/04/23 Code(s): Z95.5 - Presence of coronary angioplasty implant and graft (3) S/P cardiac cath: Comment: 08/25/2023 showing mid LAD 95% stenosis, left circumflex proximal 60% stenosis, RCA moderate diffuse disease, JONATHAN to the mid LAD and 1st diagonal Code(s): Z98.890 - Other specified postprocedural states (4) HTN (hypertension): Code(s): I10 - Essential (primary) hypertension Qualifiers: Hypertension type: primary hypertension Qualified Code(s): I10 - Essential (primary) hypertension Plan: Well controlled at this time. No medication changes made (5) Paroxysmal atrial fibrillation: Code(s): I48.0 - Paroxysmal atrial fibrillation Plan: History of paroxysmal atrial fibrillation. Currently suppressed. On carvedilol for heart rate control. On Eliquis for anticoagulation. No bleeding issues reported. Coding Level of Care Code Est Pt Level 4 (93731) Diagnoses CAD (coronary artery disease) I25.10 Stented coronary artery Z95.5 S/P cardiac cath Z98.890 Primary hypertension I10 Hypertension type: primary hypertension Paroxysmal atrial fibrillation I48.0 Time Spent (min) 30
== END 2023-09-13 09:56 | disposition home or self-care (01) ==
PROVIDERS: PCP Internal Medicine; Visit Provider Nurse Practitioner Family
DX: I25.10 Atherosclerotic heart disease of native coronary artery without angina pectoris (principal); Z95.5 Presence of coronary angioplasty implant and graft; Z98.890 Other specified postprocedural states; I10 Essential (primary) hypertension; I48.0 Paroxysmal atrial fibrillation
CPT/HCPCS: 99214

== ENCOUNTER → 2023-09-13 09:01 | Outpatient (BNVA) | payer MEDICARE, SELFPAY | PROVIDERS: PCP Internal Medicine; Visit Provider Nurse Practitioner Family | DX: I25.10 Atherosclerotic heart disease of native coronary artery without angina pectoris (principal); I10 Essential (primary) hypertension; I48.0 Paroxysmal atrial fibrillation; Z98.890 Other specified postprocedural states; Z95.5 Presence of coronary angioplasty implant and graft | CPT/HCPCS: 99212 ==

== ENCOUNTER 2023-11-01 08:41 | Outpatient (AMB) | payer MEDICARE, SELFPAY ==
[2023-11-01 08:43] VITALS: BP 130/68; PULSE 66; O2SAT 97; BMI 26.0
--- NOTE | 2023-11-01 08:43 | A.OFFVIS_ITS ---
Intake Vital Signs 11/01/23 08:43 Height 5 ft 6 in Weight 161 lb BMI 26.0 BP 130/68 Blood Pressure Location Lt brachial Position Sitting Pulse 66 Pulse Source Pulse Oximeter Pulse Oximetry (%) 97 Oxygen Delivery Method Room Air Intake Visit Reasons: [facility] [id number] [employer] Director Required: No Allergies No Known Allergies Allergy (Verified 11/01/23 09:01) Medication List - Last Reconciled 11/01/23 by JESSICA Clemons apixaban (Eliquis) 5 mg PO BID atorvastatin 40 mg PO DAILY calcium carbonate-vitamin D3 600 mg-10 mcg (400 unit) (Calcium with Vitamin D) 1 tab PO BID carvedilol 12.5 mg PO BID finasteride 5 mg PO DAILY@1700 walker Folding Front wheeled walker HPI [facility] [id number] HPI Details Patient is an 78-year-old male who presents today for subsequent wellness visit. Patient of Dr. Joe. Patient is up-to-date with his health preventative screenings and immunizations. PSA checked by Dr. Rhodes, patient has order. [place] of care was reviewed with the patient and he was provided with a screening schedule. End of life planning was discussed with the patient and he was provided with healthcare proxy and MOLST forms. [facility], [facility] Medical History Pre-op exam Cerumen impaction Dizzy spells Right inguinal hernia Urinary tract infection Other obstructive and reflux uropathy Polymyalgia rheumatica RBBB HTN (hypertension) Hyperlipidemia CAD (coronary artery disease) Surgical History History of colonoscopy Stented coronary artery Hx of cardiac cath Family History Father CVD (cardiovascular disease) Mother CVD (cardiovascular disease) Social History Household Members: None Housing: House Are you a primary hospice care consultant to a significant other at home: No Do you presently have visiting nurse or other home services: No Alcohol intake: never Comment: aware of trip hazard Patient Tobacco Use Status: Never used Tobacco e-Cigarette/Vaping Use: Never Used Second Hand Smoke Exposure: No service: No Current occupational status: retired Current occupational exposures/hazards: No Cognitive needs: No Hearing needs: Yes Vision needs: Yes Questionnaire Medicare Wellness Checkup What is your age?: 80 or older What gender do you identify with?: male During the past 4 weeks, how much have you been bothered by emotional problems such as feeling anxious, depressed, irritable, sad or downhearted, and blue?: not at all During the past 4 weeks, has your physical & emotional health limited your social activities with family, friends, neighbors, or groups?: not at all During the past 4 weeks, how much bodily pain have you generally had?: moderate pain During the past 4 weeks, was someone available to help you if you needed & wanted help?: yes, quite a bit During the past 4 weeks, what was the hardest physical activity you could do for at least 2 minutes?: heavy Can you get to places out of walking distance without help? (For eg., can you travel alone on buses, taxis or drive your car?): Yes Can you go shopping for groceries or clothes without someone's help?: Yes Can you prepare your own meals?: Yes Can you do your housework without help?: Yes Because of any health problems, do you need the help of another person with your personal care needs such as eating, bathing, dressing or getting around the house?: No Can you handle your own money without help?: Yes During the past 4 weeks, how would you rate your health in general?: very good During the past 4 weeks how have things been going for you?: pretty well Are you having difficulties driving your car?: no Do you always fasten your seat belt when you are in a car?: yes, usually During past 4 weeks, have you been bothered by the following: never: Falling or dizzy when standing up, Sexual problems?, Trouble eating well?, Teeth or denture problems? and Problems using the telephone? and seldom: Tiredness or fatigue? Have you fallen 2 or more times in the past year?: No Are you afraid of falling?: No Are you a smoker?: no During the past 4 weeks, how many drinks of wine, beer, or other alcoholic beverages did you have?: no alcohol at all Do you exercise for about 20 minutes 3 or more times a week?: yes, most of the time Have you been given information to help with the following?: no: Hazards in your house that might hurt you? and no: Keeping track of your medications? How often do you have trouble taking medicines the way you have been told to take them?: I always take medicine as prescribed How confident are you that you can control & manage most of your health problems?: very confident What is your race?: White Mini Mental State Exam (MMSE) Orientation What is the (year) (season) (date) (day) (month)?: year, season, date, day and month Score Score: 5 Activity of Daily Living Bathing - sponge bath, tub bath or shower: receives no assistance (gets in/out by self, if usual bathing means Dressing - getting clothes from closets & drawers, including inner/outer garments & fasteners.: gets clothes & gets completely dressed without help Toileting - going to the 'toilet room' for urine/bowel elimination & cleaning self/arranging clothes: goes to toilet room, cleans self, arranges clothes without help Transfer: moves in & out of bed and chair without help (may use support object) Continence: controls urination/bowel movements completely by self Feeding: feeds self without help Total Score: 0 Information obtained from: patient Using telephone: independent Traveling: independent Shopping: independent Preparing meals: independent Housework: independent Taking medicine: independent Managing money: independent PHQ-9 Over the last 2 weeks, how often have you been bothered by any of the following problems? 1. Little interest or pleasure in doing things: not at all 2. Feeling down, depressed, or hopeless: not at all 3. Trouble falling or staying asleep, or sleeping too much: not at all 4. Feeling tired or having little energy: not at all 5. Poor appetite or overeating: not at all 6. Feeling bad about yourself - or that you are a failure or have let yourself or your family down: not at all 7. Trouble concentrating on things, such as reading the newspaper or watching television: not at all 8. Moving or speaking so slowly that other people could have noticed. Or the opposite - being so fidgety or restless that you have been moving around a lot more than usual: not at all 9. Thoughts that you would be better off or of hurting yourself in some way: not at all Total score: 0 Depression Screening Interpretation: Negative Depression Screening Done: Yes 20262 - PHQ-9 Billing: Yes Source: Developed by Drs. Juan Carlos Finch, eHike Roberson, Justin Rene and colleagues, with an educational suzanne from [employer]. Physical Exam Vital Signs: Last Vital Signs Pulse 66 11/01/23 08:43 BP 130/68 11/01/23 08:43 Pulse Ox 97 11/01/23 08:43 Oxygen Delivery Method Room Air 11/01/23 08:43 BMI result Body Mass Index 26.0 Const General: cooperative and no acute distress Orientation/consciousness: patient oriented x3 HEENT Other: Whisper test: fail Neuro Other: Balance: Normal Get up and walk: unable to Romberg: negative Tandem gait: able to General: patient oriented x3 Assessment & Plan Assessment & Plan (1) Adult general medical exam: Code(s): Z00.00 - Encounter for general adult medical examination without abnormal findi ngs Plan: Repeat in 1 year (2) BPH w urinary obs/LUTS: Code(s): N40.1 - Benign prostatic hyperplasia with lower urinary tract symptoms; N13.8 - Other obstructive and reflux uropathy Plan: Continue current treatment Continue to follow-up with urology (3) Polymyalgia rheumatica: Code(s): M35.3 - Polymyalgia rheumatica Plan: Patient reports that he was seen by rheumatology in the past (4) CAD (coronary artery disease): Code(s): I25.10 - Atherosclerotic heart disease of [place] coronary artery without angina pectoris Plan: Continue to follow-up cardiology as scheduled Continue current treatment (5) Hypertension: Code(s): I10 - Essential (primary) hypertension Plan: Continue current treatment Low-sodium diet and exercise as tolerated (6) Hyperlipidemia: Code(s): E78.5 - Hyperlipidemia, unspecified Plan: Atorvastatin 40 mg daily Reinforced low-cholesterol diet (7) Osteoarthritis of left knee: Code(s): M17.12 - Unilateral primary osteoarthritis, left knee Qualifiers: Osteoarthritis type: primary Qualified Code(s): M17.12 - Unilateral primary osteoarthritis, left knee Plan: Continue to follow-up with orthopedic (8) Paroxysmal atrial fibrillation: Code(s): I48.0 - Paroxysmal atrial fibrillation Plan: Continue to follow-up with cardiology Continue carvedilol and Eliquis Quality Reporting (2019) Depression/Bipolar (159/160/161/177) PHQ-9: Total score: 0 Coding Level of Care Code Medicare Subsequent (G0439) Diagnoses Adult general medical exam Z00.00 BPH w urinary obs/LUTS N40.1; N13.8 Polymyalgia rheumatica M35.3 CAD (coronary artery disease) I25.10 Hypertension I10 Hyperlipidemia E78.5 Primary osteoarthritis of left knee M17.12 Osteoarthritis type: primary Paroxysmal atrial fibrillation I48.0 CPT Codes Advance Care Planning - Time spent: 1-15 minutes, not on file ([id number]) Advance Care Planning Date of discussion: 11/01/23 Who was present: pt and manpower development specialist manager Forms completed: None Time spent: 1-15 minutes, not on file Actual minutes spent: 3 Did not discuss due to Cultural/Spiritual beliefs: No
== END 2023-11-01 09:15 | disposition home or self-care (01) ==
PROVIDERS: Visit Provider Nurse Practitioner Family
DX: Z00.00 Encounter for general adult medical examination without abnormal findings (principal); M35.3 Polymyalgia rheumatica; I48.0 Paroxysmal atrial fibrillation; N40.1 Benign prostatic hyperplasia with lower urinary tract symptoms; N13.8 Other obstructive and reflux uropathy; I25.10 Atherosclerotic heart disease of native coronary artery without angina pectoris; I10 Essential (primary) hypertension; E78.5 Hyperlipidemia, unspecified; M17.12 Unilateral primary osteoarthritis, left knee
CPT/HCPCS: 1124F; G0439

== ENCOUNTER 2023-12-11 10:08 | Outpatient (AMB) | payer MEDICARE, SELFPAY ==
[2023-12-11 10:09] VITALS: BP 134/70; PULSE 60; O2SAT 99; BMI 25.7
--- NOTE | 2023-12-11 10:09 | MHC.PC.OV ---
Vital Signs 12/11/23 10:09 Height 5 ft 6 in Weight 159 lb BMI 25.7 BP 134/70 Blood Pressure Location Lt brachial Position Sitting Pulse 60 Pulse Source Pulse Oximeter Pulse Oximetry (%) 99 Oxygen Delivery Method Room Air Intake Visit Reasons: memory and shoulder pain Self Sealing Fuel Tank Repairer Required: No Medical Office Supervisor: Not Required per policy Accompanied by: Self / Same As Patient Allergies No Known Allergies Allergy (Verified 12/11/23 10:10) Medication List - Last Reconciled 12/11/23 by Rikki Joe MD apixaban (Eliquis) 5 mg PO BID atorvastatin 40 mg PO DAILY calcium carbonate-vitamin D3 600 mg-10 mcg (400 unit) (Calcium with Vitamin D) 1 tab PO BID carvedilol 12.5 mg PO BID clopidogrel 75 mg PO DAILY finasteride 5 mg PO DAILY@1700 walker Folding Front wheeled walker Tobacco use date assessed: 12/11/23 Fall risk assessment: No Falls in past year Last assessed Fall Risk: 12/11/23 Dental Screening Dental Screen Date: 12/11/23 Did you have a dental visit in the last 12 months?: Yes Did you have a dental problem in the last 6 months where you did not have access to dental care?: No Was dental information given to patient?: Patient has dentist HPI memory and shoulder pain HPI Details friends notice a decrease in short term memory for a few months [facility] Medical History Pre-op exam Cerumen impaction Dizzy spells Right inguinal hernia Urinary tract infection Other obstructive and reflux uropathy Polymyalgia rheumatica RBBB HTN (hypertension) Hyperlipidemia CAD (coronary artery disease) Surgical History History of colonoscopy Stented coronary artery Hx of cardiac cath Family History Father CVD (cardiovascular disease) Mother CVD (cardiovascular disease) Social History Household Members: None Housing: House Are you a primary field care coordinator to a significant other at home: No Do you presently have visiting nurse or other home services: No Alcohol intake: never Comment: aware of trip hazard Patient Tobacco Use Status: Never used Tobacco e-Cigarette/Vaping Use: Never Used Second Hand Smoke Exposure: No service: No Current occupational status: retired Current occupational exposures/hazards: No Cognitive needs: No Hearing needs: Yes Vision needs: Yes Questionnaire PHQ-9 Over the last 2 weeks, how often have you been bothered by any of the following problems? 1. Little interest or pleasure in doing things: not at all 2. Feeling down, depressed, or hopeless: not at all 3. Trouble falling or staying asleep, or sleeping too much: not at all 4. Feeling tired or having little energy: not at all 5. Poor appetite or overeating: not at all 6. Feeling bad about yourself - or that you are a failure or have let yourself or your family down: not at all 7. Trouble concentrating on things, such as reading the newspaper or watching television: not at all 8. Moving or speaking so slowly that other people could have noticed. Or the opposite - being so fidgety or restless that you have been moving around a lot more than usual: not at all 9. Thoughts that you would be better off or of hurting yourself in some way: not at all Total score: 0 Depression Screening Interpretation: Negative Depression Screening Done: Yes 91143 - PHQ-9 Billing: Yes Source: Developed by Drs. Juan Carlos Finch, Heike Roberson, Justin Rene and colleagues, with an educational suzanne from [employer]. Thrive Questionnaire Date Thrive assessed: 12/11/23 I am a: Patient What is your living situation today?: I have a steady place to live Within the past 12 months, did the food you bought not last and you didn't have the money to get more?: Never true Within the past 12 months, did you worry whether your food would run out before you got money to buy more?: Never true Do you have trouble paying for medicines?: No Do you have trouble getting transportation to medical appointments?: No Do you have trouble paying your heating and electricity bill?: No Do you have trouble taking care of your child, family member or friend?: No Do you have trouble with day-to-day activities such as bathing, preparing meals, shopping, managing finances, etc.?: No Are you currently unemployed and looking for a job?: No Are you interested in more education?: No Please select the resources that you would like help with: None THRIVE Score: 0 AUDIT C Alcohol Use Questionnaire (AUDIT-C) 1. How often do you have a drink containing alcohol?: Never Total Score: 0 Score Reviewed/Action Taken: Yes ROBE-7 AMB Questionnaire ROBE-7 Date ROBE - 7 assessed: 12/11/22 Source: Developed by Drs. Juan Carlos Finch, Heike Roberson, Justin Rene and colleagues, with an educational suzanne from [employer]. Review of Systems Const Denies chills, Denies headache(s) and Denies weight loss ENT Denies headache(s) Card Denies chest pain, Denies syncope, Denies irregular heart rhythm and Denies dyspnea Resp Denies chest congestion, Denies cough and Denies dyspnea GI Denies abdominal pain, Denies change in stool character, Denies nausea and Denies vomiting Musc Denies deformity and Denies joint swelling Neuro Denies syncope and Denies headache(s) Physical exam (Primary Care) Vital Signs: Last Vital Signs Pulse 60 12/11/23 10:09 BP 134/70 12/11/23 10:09 Pulse Ox 99 12/11/23 10:09 Oxygen Delivery Method Room Air 12/11/23 10:09 BMI result Body Mass Index 25.7 Tobacco/Smoking Status: Tobacco use Status Tobacco use date assessed 12/11/23 12/11/23 10:11 Patient Tobacco Use Status Never used Tobacco 12/11/23 10:11 e-Cigarette/Vaping Use Never Used 12/11/23 10:11 PHQ-9: PHQ-9 Score PHQ-9: Total score 0 12/11/23 10:11 Depression Screening Interpretation: Negative Thrive Assessment: Date of Thrive Assessment Date Thrive assessed 12/11/23 12/11/23 10:11 Const General: cooperative, comfortable, no acute distress and alert Neck Neck: Yes no lymphadenopathy Thyroid: Thyroid normal Resp Effort & Inspection: normal respiratory effort Auscultation: clear to auscultation bilaterally Percussion: percussion normal Cardio Jugular venous distension: no JVD Palpation: normal PMI Rate: regular rate Rhythm: regular rhythm Heart sounds: S1 normal heart sound present and S2 normal heart sound present GI Inspection: Yes normal to inspection Palpation (GI): No hepatosplenomegaly present Skin General skin exam: no rashes or lesions noted Extrem General: Yes no clubbing, cyanosis or edema Assessment and Plan Assessment & Plan (1) Cognitive decline: Code(s): R41.89 - Other symptoms and signs involving cognitive functions and awareness Plan: labs and ct Orders: Orders Complete Blood Count Auto Diff Today D64.9 - Anemia, unspecified Comprehensive [place]. Panel Fast Today N28.9 - Disorder of kidney and ureter, unspecified Thyroid Stimulating Hormone Today E03.9 - Hypothyroidism, unspecified Lipid Panel Today E78.5 - Hyperlipidemia, unspecified CT head/brain wo IV con Today R41.89 - Other symptoms and signs involving cognitive functions and awareness Coding Level of Care Code Est Pt Level 3 (47858) Diagnoses Cognitive decline R41.89
== END 2023-12-11 10:39 | disposition home or self-care (01) ==
PROVIDERS: PCP Internal Medicine; Visit Provider Internal Medicine
DX: R41.89 Other symptoms and signs involving cognitive functions and awareness (principal)
CPT/HCPCS: 99213

== ENCOUNTER 2023-12-24 09:19 | Outpatient (AMB) | payer MEDICARE, SELFPAY ==
--- NOTE | 2023-12-24 09:21 | A.OFFVIS_ITS ---
Intake Vital Signs 12/24/23 09:23 Height 5 ft 6 in Weight 158 lb 11.725 oz BMI 25.6 BP 120/74 Blood Pressure Location Lt brachial Position Sitting Pulse 72 Intake Visit Reasons: 6 mth f/up Intake Note: 6 month follow-up Child Welfare Worker Required: No Allergies No Known Allergies Allergy (Verified 12/11/23 10:10) Medication List - Last Reconciled 12/24/23 by Fletcher White MD apixaban (Eliquis) 5 mg PO BID atorvastatin 40 mg PO DAILY calcium carbonate-vitamin D3 600 mg-10 mcg (400 unit) (Calcium with Vitamin D) 1 tab PO BID carvedilol 12.5 mg PO BID clopidogrel 75 mg PO DAILY finasteride 5 mg PO DAILY@1700 walker Folding Front wheeled walker HPI HPI Comments History of Present Illness Details Mohsen comes for follow-up. He denies any new cardiac symptoms. Takes all his medications regularly. Currently on Plavix and Eliquis for stenting as well as paroxysmal atrial fibrillation. No bleeding issues or neurologic events. Denies any exertional chest pain. He would 1 episode of transient lightheadedness while he was working in the kitchen that lasted few seconds. No loss of syncope. This happened about couple weeks ago. He has not had any recurrent symptoms since then. Denies any prolonged palpitations. No heart failure symptoms. Takes all his medications regularly. [facility] Medical History Pre-op exam Cerumen impaction Dizzy spells Right inguinal hernia Urinary tract infection Other obstructive and reflux uropathy Polymyalgia rheumatica RBBB HTN (hypertension) Hyperlipidemia CAD (coronary artery disease) Surgical History History of colonoscopy Stented coronary artery Hx of cardiac cath Family History Father CVD (cardiovascular disease) Mother CVD (cardiovascular disease) Social History Household Members: None Housing: House Are you a primary restorative care technician to a significant other at home: No Do you presently have visiting nurse or other home services: No Alcohol intake: never Comment: aware of trip hazard Patient Tobacco Use Status: Never used Tobacco e-Cigarette/Vaping Use: Never Used Second Hand Smoke Exposure: No service: No Current occupational status: retired Current occupational exposures/hazards: No Cognitive needs: No Hearing needs: Yes Vision needs: Yes Review of Systems Const Denies chills, Denies fatigue, Denies fever(s), Denies frequent falls, Denies weakness, Denies weight gain and Denies weight loss ENT Denies dizziness Card Denies chest pain, Denies leg edema, Denies lightheadedness, Denies palpitations, Denies dyspnea, Denies dyspnea on exertion, Denies orthopnea and Denies other (loss of consciousness) Resp Denies cough, Denies dyspnea and Denies dyspnea on exertion GI Denies hematochezia and Denies change in stool character Musc Denies abnormal gait, Denies muscle weakness, Denies numbness, Denies radiating pain into limb and Denies tingling Neuro Denies abnormal gait, Denies dizziness, Denies frequent falls, Denies numbness, Denies tingling and Denies weakness Endo Denies fatigue and Denies palpitations Physical Exam Vital Signs: Last Vital Signs Pulse 72 12/24/23 09:23 BP 120/74 12/24/23 09:23 BMI result Body Mass Index 25.6 Const General: cooperative, healthy appearing, comfortable, no acute distress, alert and awake Nutritional Appearance: average body habitus and well nourished Orientation/consciousness: patient oriented x3 Limitations: physical limitations and other limitations ( Altered gait due to arthritis) HEENT Head: Yes normal to inspection, Yes normocephalic and Yes atraumatic Eyes General: appearance normal, both eyes and all related structures Neck Neck: Yes full ROM, Yes trachea midline and Yes no JVD Carotids: other ( no carotid bruits) Chest Chest palpation & inspection: normal inspection of the chest Resp Effort & Inspection: normal respiratory effort Auscultation: clear to auscultation bilaterally Cardio Jugular venous distension: no JVD Palpation: normal PMI Rate: regular rate Rhythm: regular rhythm Heart sounds: S1 normal heart sound present, S2 normal heart sound present and Other heart sounds present ( soft S4) Peripheral pulses: Peripheral pulses 2+ throughout GI Inspection: Yes normal to inspection Auscultation: normal bowel sounds Skin General skin exam: no rashes or lesions noted, elasticity normal and turgor normal Neuro General: patient oriented x3 and no focal motor deficits Extrem General: Yes no clubbing, cyanosis or edema Psych Appearance: grossly normal Assessment & Plan Assessment & Plan (1) CAD (coronary artery disease): Code(s): I25.10 - Atherosclerotic heart disease of [place] coronary artery without angina pectoris Plan: CAD with remote STEMI and more recently complex stenting of the LAD into the diagonal branch for severe stenosis. No symptoms of angina. Continue Plavix till August of 2024. Continue aggressive risk factor modification. Goal LDL closer to 60 mg/dL. Advised lipid panel near future. Blood pressure is currently well optimized. Advised to monitor blood pressure at home maintain a log. Transient lightheadedness could be due to orthostasis. Advised to increase fluid intake. Advised to call me with worsening symptoms. (2) Paroxysmal atrial fibrillation: Code(s): I48.0 - Paroxysmal atrial fibrillation Plan: Paroxysmal atrial fibrillation without any overt recurrent symptoms. Continue carvedilol therapy. No indication for antiarrhythmic drug therapy. Currently on full oral anticoagulation with Eliquis. Semi annual renal function test s hould be pursued. Avoidance of stimulants was discussed advised to call me with worsening symptoms. Will follow up in the clinic in 6 months time, sooner p.r.n.. Thank you for allowing me to partake in his care Orders: Orders Basic Metabolic Panel Today I25.10 - Atherosclerotic heart disease of [place] coronary artery without angina pectoris Lipid Panel Today I25.10 - Atherosclerotic heart disease of [place] coronary artery without angina pectoris Coding Level of Care Code Est Pt Level 4 (52329) Diagnoses CAD (coronary artery disease) I25.10 Paroxysmal atrial fibrillation I48.0
[2023-12-24 09:23] VITALS: BP 120/74; PULSE 72; BMI 25.6
== END 2023-12-24 10:10 | disposition home or self-care (01) ==
PROVIDERS: PCP Internal Medicine; Visit Provider Internal Medicine Cardiovascular Disease
DX: I25.10 Atherosclerotic heart disease of native coronary artery without angina pectoris (principal); I48.0 Paroxysmal atrial fibrillation
CPT/HCPCS: 99214

== ENCOUNTER → 2023-12-24 09:19 | Outpatient (BNVA) | payer MEDICARE, SELFPAY | PROVIDERS: PCP Internal Medicine; Visit Provider Internal Medicine Cardiovascular Disease | DX: I25.10 Atherosclerotic heart disease of native coronary artery without angina pectoris (principal); I48.0 Paroxysmal atrial fibrillation | CPT/HCPCS: 99212 ==

== ENCOUNTER 2023-12-26 07:47 | Outpatient (REF) | payer MEDICARE, SELFPAY ==
[2023-12-26 08:01] LABS: MANUAL DIFF FLAG NO
[2023-12-26 08:16] LABS: Basophils Percent Auto 0.6 % (0-2); Eosinophils Absolute Auto 0.2 X10*3/uL (0.0-0.4); Eosinophils Percent Auto 2.8 % (0-4); Hematocrit 46.4 % (42.0-52.0); Hemoglobin 15.9 g/dl (14.0-18.0); Imm Gran Abs Auto 0.03 X10*3/uL (0.00-0.03); Imm Gran Pct Auto 0.5 % (0.0-0.4); Lymphocytes Absolute Auto 1.5 X10*3/uL (1.2-4.9); Lymphocytes Percent Auto 23.6 % (20-40); Mean Corpuscular HGB Conc 34.3 g/dl (31.0-36.0); Mean Corpuscular Hemoglobin 31.6 pg (27.0-33.0); Mean Corpuscular Volume 92.2 fL (80.0-98.0); Mean Platelet Volume 11.3 fL (9.4-12.4); Monocytes Absolute Auto 0.7 X10*3/uL (0.1-1.2); Monocytes Percent Auto 11.2 % (2-11); Neutrophils Absolute Auto 3.9 x10*3/uL (2.0-8.3); Neutrophils Percent Auto 61.3 % (45-73); Platelet Count 185 X10*3/uL (160-400); Red Blood Count 5.03 X10*6/uL (4.60-5.80); Red Cell Distribution Width 12.1 % (11.0-16.0); White Blood Count 6.3 X10*3/uL (4.8-10.8)
[2023-12-26 08:34] LABS: Alanine Aminotransferase 20 U/L (0-40); Albumin Level 4.1 g/dL (3.5-5.0); Alkaline Phosphatase 68 U/L (39-117); Anion Gap 10 (12-20); Aspartate Amino Transferase 21 U/L (5-37); Bilirubin Total 1.3 mg/dL (0.0-1.0); Blood Urea Nitrogen 18 mg/dL (9-16); Calcium 9.4 mg/dL (8.4-10.2); Carbon Dioxide 27 mmol/L (22-29); Chloride 106 mmol/L (96-108); Cholesterol 126 mg/dL (<200); Estimated Glomerular Filt Rate > 60; Glucose Fasting 113 mg/dL (60-99); HDL Cholesterol 44 mg/dL (>40); LDL Cholesterol Calculated 66 mg/dL (<100); Potassium 4.4 mmol/L (3.3-5.1); Sodium 139 mmol/L (135-145); Total Protein 6.8 g/dL (6.5-8.0); Triglycerides 81 mg/dL (<150)
[2023-12-26 08:51] LABS: Thyroid Stimulating Hormone 0.42 uIU/mL (0.32-4.0)
== END 2023-12-26 07:48 | disposition home or self-care (01) ==
LOC: HO.LAB 07:47
PROVIDERS: Internal Medicine; Visit Provider Internal Medicine Cardiovascular Disease
DX: I25.10 Atherosclerotic heart disease of native coronary artery without angina pectoris (principal); D64.9 Anemia, unspecified; N28.9 Disorder of kidney and ureter, unspecified; E03.9 Hypothyroidism, unspecified; E78.5 Hyperlipidemia, unspecified
CPT/HCPCS: 36415; 80053; 80061; 84443; 85025

== ENCOUNTER 2024-01-29 08:29 | Outpatient (REF) | payer MEDICARE, SELFPAY ==
--- NOTE | ~2024-01-29 | CT_ITS ---
EXAMINATION: CT HEAD WITHOUT CONTRAST CLINICAL INFORMATION: Cognitive decline. COMPARISON: None. TECHNIQUE: Contiguous axial imaging was performed from the skullbase to vertex without intravenous administration of contrast. This CT examination was performed using dose optimization techniques as appropriate, variously including the following: *Automated exposure control *Adjustment of mA and/or kV according to patient size (this includes techniques or standardized protocols for targeted exams where dose is matched to indication/reason for exam; i.e. extremities or head) *Use of iterative reconstruction technique DLP: 767 mGy-cm. FINDINGS: There is no evidence of acute intracranial hemorrhage or territorial infarction. No abnormal mass effect or midline shift is seen. No extra-axial fluid collections are identified. Moderate generalized brain parenchymal volume loss noted with commensurate ex vacuo dilatation of the ventricles. The osseous structures and soft tissues are normal. The mastoid air cells are well aerated. There are small retention cysts in the sphenoid sinus cavities and mild mucosal thickening in the dependent frontal sinuses and in the anterior ethmoid air cells. CT/CT head/brain wo IV con IMPRESSION: No acute intracranial pathology. Moderate generalized brain parenchymal volume loss. Mild frontoethmoid sinus mucosal thickening and small retention cyst in the sphenoid sinuses.
== END 2024-01-29 08:30 | disposition home or self-care (01) ==
LOC: HO.CT 08:29
PROVIDERS: PCP Internal Medicine; Visit Provider Internal Medicine
DX: R41.89 Other symptoms and signs involving cognitive functions and awareness (principal); F03.90 Unspecified dementia, unspecified severity, without behavioral disturbance, psychotic disturbance, mood disturbance, and anxiety
CPT/HCPCS: 70450

== ENCOUNTER 2024-02-01 08:41 | Outpatient (AMB) | payer MEDICARE, SELFPAY ==
--- NOTE | 2024-02-01 08:47 | MHC.OFFVIS ---
Intake Intake Visit Reasons: 1Y PVR Intake Note: Patient is Present for Follow Up PVR Urology Medication: Finasteride, Antibiotic Allergies: None Blood Thinners: Eliquis Confirmed Pharmacy: PVR: 0ml Allergies No Known Allergies Allergy (Verified 02/01/24 08:49) HPI HPI Comments History of Present Illness Details Mohsen is a pleasant male. He is a patient of Dr Joe. He is here for the following - lower urinary tract symptoms PVR 0 Has been on finasteride Waking 3-5 times at night Plan for bladder ultrasound Repeat office cystoscopy Prior cystoscopy trilobar hypertrophy. May benefit from prostate procedure RAFA normal 2022 Lower urinary tract symptoms Improvement with terazosin to 1-2 times per night nocturia Initial symptoms nocturia 3-4 times per night Occasional urgency frequency Prior treatments - tamsulosin which made him dizzy Current symptoms - nocturia, weakness of stream, PVR 01/30 25cc PSA 05/31 3.6, 12/03 2.2 cystoscopy 05/02 - trilobar hypertrophy Therapeutic plan - office cystoscopy [facility] Medical History Pre-op exam Cerumen impaction Dizzy spells Right inguinal hernia Urinary tract infection Other obstructive and reflux uropathy Polymyalgia rheumatica RBBB HTN (hypertension) Hyperlipidemia CAD (coronary artery disease) Surgical History History of colonoscopy Stented coronary artery Hx of cardiac cath Family History Father CVD (cardiovascular disease) Mother CVD (cardiovascular disease) Social History Household Members: None Housing: House Are you a primary childcare center administrator to a significant other at home: No Do you presently have visiting nurse or other home services: No Alcohol intake: never Comment: aware of trip hazard Patient Tobacco Use Status: Never used Tobacco e-Cigarette/Vaping Use: Never Used Second Hand Smoke Exposure: No service: No Current occupational status: retired Current occupational exposures/hazards: No Cognitive needs: No Hearing needs: Yes Vision needs: Yes Review of Systems Const Denies chills and Denies fever(s) Card Reports no additional complaints and Denies syncope Resp Denies cough GI Denies abdominal pain and Denies heartburn Reports as per HPI and Denies change in libido Neuro Denies syncope Psych Denies change in libido Endo Denies change in libido Physical Exam Const General: cooperative, healthy appearing, comfortable and no acute distress Orientation/consciousness: patient oriented x3 HEENT Face and sinus: Yes normal facial exam Mouth: moist mucous membranes Neck Neck: Yes normal visual inspection, Yes full ROM and Yes trachea midline Chest Chest palpation & inspection: normal inspection of the chest Resp Effort & Inspection: normal respiratory effort, able to speak in complete sentences and no respiratory distress GI Inspection: Yes normal to inspection Back/Spine/Pelvis Cervical Spine: normal cervical lordosis Thoracic/Lumbar Spine: thoracic and lumbar spine normal to inspection Skin General skin exam: no rashes or lesions noted Neuro General: patient oriented x3, gait normal, tone normal and moves all extremities Extrem General: Yes normal to inspection and Yes capillary refill normal Office Procedures Post Void Residual Post Residual Void Post Void Residual (PVR): 0 [id number]-[id number] Void Residual by ultrasound Assessment & Plan Assessment & Plan (1) Nocturia more than twice per night: Code(s): R35.1 - Nocturia (2) BPH w urinary obs/LUTS: Code(s): N40.1 - Benign prostatic hyperplasia with lower urinary tract symptoms; N13.8 - Other obstructive and reflux uropathy Plan Bladder ultrasound Office cystoscopy Orders: Orders AMB Post Void Residual by ultrasound Today N13.8 - Other obstructive and reflux uropathy, N40.1 - Benign prostatic hyperplasia with lower urinary tract symptoms US bladder Today N13.8 - Other obstructive and reflux uropathy, N40.1 - Benign prostatic hyperplasia with lower urinary tract symptoms, R39.12 - Poor urinary stream Patient Instructions: Imaging studies, laboratory and physical exam results were discussed and reviewed in detail. No major barriers to patient understanding were identified. An opportunity to ask questions regarding the treatment plan was provided. All questions were answered. The patient expressed understanding and agreement with the above treatment plan. The patient is aware they should contact our office by phone for worsening of their current condition or the appearance of new urologic symptoms. Compliance is encouraged with any medications and followup testing that is ordered. It is a privilege to participate in the urologic care of your patient. If you have any questions or concerns regarding treatment for the above conditions, or other urologic issues, please do not hesitate to contact me. The office telephone contact is [phone]. This note is constructed using voice recognition software. While every effort has been made to ensure accuracy quality assurance monitor final errors may have been included. Yours sincerely, Dr Fidencio Rhodes MD, [facility] - Urology Providers of Expert, Compassionate Care for the Genitourinary System Coding Level of Care Code Est Pt Level 4 (50991) Diagnoses Nocturia more than twice per night R35.1 BPH w urinary obs/LUTS N40.1; N13.8 CPT Codes Post Residual Void - PVR CPT Code: [id number]-[id number] Void Residual by ultrasound ([id number])
== END 2024-02-01 09:20 | disposition home or self-care (01) ==
PROVIDERS: Visit Provider Urology
DX: N40.1 Benign prostatic hyperplasia with lower urinary tract symptoms (principal); R35.1 Nocturia; N13.8 Other obstructive and reflux uropathy
CPT/HCPCS: 99214

== ENCOUNTER → 2024-02-01 08:41 | Outpatient (BNVA) | payer MEDICARE, SELFPAY | PROVIDERS: Visit Provider Urology | DX: N40.1 Benign prostatic hyperplasia with lower urinary tract symptoms (principal); R35.0 Frequency of micturition; R35.1 Nocturia; N13.8 Other obstructive and reflux uropathy; R39.12 Poor urinary stream | CPT/HCPCS: 51798; 99212 ==

== ENCOUNTER 2024-03-03 10:20 | Outpatient (REF) | payer MEDICARE, SELFPAY ==
--- NOTE | ~2024-03-03 | US_ITS ---
EXAMINATION: US PELVIS LIMITED (BLADDER) CLINICAL INFORMATION: Poor urinary stream. COMPARISON: None available. TECHNIQUE: Real-time imaging of the bladder. FINDINGS: BLADDER: Well distended and normal. Bilateral ureteral jets are demonstrated. Prevoid bladder volume is 149 mL. Postvoid bladder volume is 43.4 mL. ADDITIONAL FINDINGS: The prostate is markedly enlarged with a volume of 78.5 mL. US/US bladder IMPRESSION: 1. Small to moderate post void residual. 2. Markedly enlarged prostate.
== END 2024-03-03 10:21 | disposition home or self-care (01) ==
LOC: HO.US 10:20
PROVIDERS: PCP Internal Medicine; Visit Provider Urology
DX: N13.8 Other obstructive and reflux uropathy (principal); N40.1 Benign prostatic hyperplasia with lower urinary tract symptoms; R39.12 Poor urinary stream
CPT/HCPCS: 76857

== ENCOUNTER 2024-03-11 10:14 | Outpatient (AMB) | payer MEDICARE, SELFPAY ==
[2024-03-11 10:18] VITALS: BP 142/86; PULSE 84; O2SAT 98; BMI 25.7
--- NOTE | 2024-03-11 10:18 | MHC.PC.OV ---
Vital Signs 03/11/24 10:18 Height 5 ft 6 in Weight 159 lb BMI 25.7 BP 142/86 H Blood Pressure Location Lt brachial Position Sitting Pulse 84 Pulse Source Pulse Oximeter Pulse Oximetry (%) 98 Oxygen Delivery Method Room Air Intake Visit Reasons: 3mth f/u Director Of Sustainability Required: No Accompanied by: Self / Same As Patient Allergies No Known Allergies Allergy (Verified 03/11/24 10:19) Medication List - Last Reconciled 03/11/24 by Rikki Joe MD apixaban (Eliquis) 5 mg PO BID atorvastatin 40 mg PO DAILY calcium carbonate-vitamin D3 600 mg-10 mcg (400 unit) (Calcium with Vitamin D) 1 tab PO BID carvedilol 12.5 mg PO BID clopidogrel 75 mg PO DAILY finasteride 5 mg PO DAILY@1700 finasteride 5 mg PO DAILY 90 days walker Folding Front wheeled walker Tobacco use date assessed: 12/11/23 Fall risk assessment: No Falls in past year Last assessed Fall Risk: 03/11/24 Dental Screening Dental Screen Date: 12/11/23 HPI 3mth f/u HPI Details htn hyperlip and afib; stable on rx PFSH Medical History Pre-op exam Cerumen impaction Dizzy spells Right inguinal hernia Urinary tract infection Other obstructive and reflux uropathy Polymyalgia rheumatica RBBB HTN (hypertension) Hyperlipidemia CAD (coronary artery disease) Surgical History History of colonoscopy Stented coronary artery Hx of cardiac cath Family History Father CVD (cardiovascular disease) Mother CVD (cardiovascular disease) Social History Household Members: None Housing: House Are you a primary child day care center worker to a significant other at home: No Do you presently have visiting nurse or other home services: No Alcohol intake: never Comment: aware of trip hazard Patient Tobacco Use Status: Never used Tobacco e-Cigarette/Vaping Use: Never Used Second Hand Smoke Exposure: No service: No Current occupational status: retired Current occupational exposures/hazards: No Cognitive needs: No Hearing needs: Yes Vision needs: Yes Questionnaire Thrive Questionnaire Date Thrive assessed: 12/11/23 ROBE-7 AMB Questionnaire ROBE-7 Date ROBE - 7 assessed: 12/11/22 Source: Developed by Drs. Juan Carlos Finch, Heike Roberson, Justin Rene and colleagues, with an educational suzanne from [email or web address]. Review of Systems Const Denies chills, Denies headache(s) and Denies weight loss ENT Denies headache(s) Card Denies chest pain, Denies syncope, Denies irregular heart rhythm and Denies dyspnea Resp Denies chest congestion, Denies cough and Denies dyspnea GI Denies abdominal pain, Denies change in stool character, Denies nausea and Denies vomiting Musc Denies deformity and Denies joint swelling Neuro Denies syncope and Denies headache(s) Physical exam (Primary Care) Vital Signs: Last Vital Signs Pulse 84 03/11/24 10:18 BP 142/86 H 03/11/24 10:18 Pulse Ox 98 03/11/24 10:18 Oxygen Delivery Method Room Air 03/11/24 10:18 BMI result Body Mass Index 25.7 Tobacco/Smoking Status: Tobacco use Status Tobacco use date assessed 12/11/23 03/11/24 10:19 Patient Tobacco Use Status Never used Tobacco 03/11/24 10:19 e-Cigarette/Vaping Use Never Used 03/11/24 10:19 Thrive Assessment: Date of Thrive Assessment Date Thrive assessed 12/11/23 03/11/24 10:19 Const General: cooperative, comfortable, no acute distress and alert Neck Neck: Yes no lymphadenopathy Thyroid: Thyroid normal Resp Effort & Inspection: normal respiratory effort Auscultation: clear to auscultation bilaterally Percussion: percussion normal Cardio Jugular venous distension: no JVD Palpation: normal PMI Rate: regular rate Rhythm: regular rhythm Heart sounds: S1 normal heart sound present and S2 normal heart sound present GI Inspection: Yes normal to inspection Palpation (GI): No hepatosplenomegaly present Skin General skin exam: no rashes or lesions noted Extrem General: Yes no clubbing, cyanosis or edema Assessment and Plan Assessment & Plan (1) Paroxysmal atrial fibrillation: Code(s): I48.0 - Paroxysmal atrial fibrillation Plan: stable; same rx (2) Hypertension: Code(s): I10 - Essential (primary) hypertension Plan: stable; same rx (3) Hyperlipidemia: Code(s): E78.5 - Hyperlipidemia, unspecified Plan: stable; do labs Orders: Orders Complete Blood Count Auto Diff Today Z13.0 - Encounter for screening for diseases of the blood and blood-forming organs and certain disorders involving the immune mechanism Thyroid Stimulating Hormone Today Z13.29 - Encounter for screening for other suspected endocrine disorder Comprehensive [place]. Panel Fast Today Z13.9 - Encounter for screening, unspecified Lipid Panel Today Z13.220 - Encounter for screening for lipoid disorders Coding Level of Care Code Est Pt Level 4 (66131) Diagnoses Paroxysmal atrial fibrillation I48.0 Hypertension I10 Hyperlipidemia E78.5
== END 2024-03-11 10:47 | disposition home or self-care (01) ==
LOC: HO.HMGH 10:14
PROVIDERS: PCP Internal Medicine; Visit Provider Internal Medicine
DX: I48.0 Paroxysmal atrial fibrillation (principal); I10 Essential (primary) hypertension; E78.5 Hyperlipidemia, unspecified
CPT/HCPCS: 99214

== ENCOUNTER 2024-03-12 07:01 | Outpatient (REF) | payer MEDICARE, SELFPAY ==
[2024-03-12 07:16] LABS: MANUAL DIFF FLAG NO
[2024-03-12 07:34] LABS: Basophils Absolute Auto 0.1 X10*3/uL (0.0-0.2); Eosinophils Absolute Auto 0.2 X10*3/uL (0.0-0.4); Eosinophils Percent Auto 3.5 % (0-4); Hematocrit 46.4 % (42.0-52.0); Hemoglobin 15.9 g/dl (14.0-18.0); Imm Gran Abs Auto 0.02 X10*3/uL (0.00-0.03); Imm Gran Pct Auto 0.3 % (0.0-0.4); Lymphocytes Absolute Auto 1.8 X10*3/uL (1.2-4.9); Lymphocytes Percent Auto 27.8 % (20-40); Mean Corpuscular HGB Conc 34.3 g/dl (31.0-36.0); Mean Corpuscular Hemoglobin 32.4 pg (27.0-33.0); Mean Corpuscular Volume 94.5 fL (80.0-98.0); Mean Platelet Volume 11.3 fL (9.4-12.4); Monocytes Absolute Auto 0.8 X10*3/uL (0.1-1.2); Monocytes Percent Auto 12.1 % (2-11); Neutrophils Absolute Auto 3.5 x10*3/uL (2.0-8.3); Neutrophils Percent Auto 55.3 % (45-73); Platelet Count 194 X10*3/uL (160-400); Red Blood Count 4.91 X10*6/uL (4.60-5.80); Red Cell Distribution Width 12.3 % (11.0-16.0); White Blood Count 6.3 X10*3/uL (4.8-10.8)
[2024-03-12 08:05] LABS: Alanine Aminotransferase 19 U/L (0-40); Albumin Level 4.1 g/dL (3.5-5.0); Alkaline Phosphatase 64 U/L (39-117); Anion Gap 12 (12-20); Aspartate Amino Transferase 21 U/L (5-37); Bilirubin Total 1.2 mg/dL (0.0-1.0); Blood Urea Nitrogen 23 mg/dL (9-16); Calcium 9.7 mg/dL (8.4-10.2); Carbon Dioxide 27 mmol/L (22-29); Chloride 106 mmol/L (96-108); Cholesterol 121 mg/dL (<200); Estimated Glomerular Filt Rate > 60; Glucose Fasting 111 mg/dL (60-99); HDL Cholesterol 43 mg/dL (>40); LDL Cholesterol Calculated 65 mg/dL (<100); Potassium 4.3 mmol/L (3.3-5.1); Sodium 141 mmol/L (135-145); Total Protein 6.9 g/dL (6.5-8.0); Triglycerides 65 mg/dL (<150)
[2024-03-12 08:21] LABS: Thyroid Stimulating Hormone 0.45 uIU/mL (0.32-4.0)
== END 2024-03-12 07:02 | disposition home or self-care (01) ==
LOC: HO.LAB 07:01
PROVIDERS: PCP Internal Medicine; Visit Provider Internal Medicine
DX: Z13.9 Encounter for screening, unspecified (principal); Z13.0 Encounter for screening for diseases of the blood and blood-forming organs and certain disorders involving the immune mechanism; Z13.29 Encounter for screening for other suspected endocrine disorder; Z13.220 Encounter for screening for lipoid disorders; I10 Essential (primary) hypertension; I48.0 Paroxysmal atrial fibrillation; E78.5 Hyperlipidemia, unspecified
CPT/HCPCS: 36415; 80053; 80061; 84443; 85025

== ENCOUNTER 2024-03-21 09:29 | Outpatient (AMB) | payer MEDICARE, SELFPAY ==
--- NOTE | 2024-03-21 10:22 | A.OFFVIS_ITS ---
Intake Visit Reasons: cysto/US Intake Note: Patient is Present for Cystoscopy Urology Med: Finasteride Antibiotic Allergy: None Blood Thinner: Eliquis. Clopidogrel URO- G Disposable Cystoscope lot: [id number] exp: 12/13/26 Allergies No Known Allergies Allergy (Verified 03/11/24 10:19) Medication List - Last Reconciled 03/21/24 by Fidencio Rhodes MD apixaban (Eliquis) 5 mg PO BID atorvastatin 40 mg PO DAILY calcium carbonate-vitamin D3 600 mg-10 mcg (400 unit) (Calcium with Vitamin D) 1 tab PO BID carvedilol 12.5 mg PO BID clopidogrel 75 mg PO DAILY finasteride 5 mg PO DAILY@1700 finasteride 5 mg PO DAILY 90 days walker Folding Front wheeled walker HPI Comments Details: Mohsen is a pleasant male. He is a patient of Dr Joe. He is here for the following - lower urinary tract symptoms Two month follow-up Repeat office cystoscopy PVR 0 Has been on finasteride Cystoscopy trilobar hypertrophy Bladder US 03/05 80 cc RAFA normal 2022 Recommend GreenLight laser prostatectomy Pertinent information provided Lower urinary tract symptoms Improvement with terazosin to 1-2 times per night nocturia Initial symptoms nocturia 3-4 times per night Occasional urgency frequency Prior treatments - tamsulosin which made him dizzy Current symptoms - nocturia, weakness of stream, PVR 01/30 25cc PSA 05/31 3.6, 12/03 2.2 cystoscopy 05/02 - trilobar hypertrophy, 04/04 Therapeutic plan - office cystoscopy [facility] Medical History Pre-op exam Cerumen impaction Dizzy spells Right inguinal hernia Urinary tract infection Other obstructive and reflux uropathy Polymyalgia rheumatica RBBB HTN (hypertension) Hyperlipidemia CAD (coronary artery disease) Surgical History History of colonoscopy Stented coronary artery Hx of cardiac cath Family History Father CVD (cardiovascular disease) Mother CVD (cardiovascular disease) Social History Household Members: None Housing: House Are you a primary animal care assistant to a significant other at home: No Do you presently have visiting nurse or other home services: No Alcohol intake: never Comment: aware of trip hazard Patient Tobacco Use Status: Never used Tobacco e-Cigarette/Vaping Use: Never Used Second Hand Smoke Exposure: No service: No Current occupational status: retired Current occupational exposures/hazards: No Cognitive needs: No Hearing needs: Yes Vision needs: Yes Review of Systems Const Denies chills and Denies fever(s) Card Reports no additional complaints and Denies syncope Resp Denies cough GI Denies abdominal pain and Denies heartburn Reports as per HPI and Denies change in libido Neuro Denies syncope Psych Denies change in libido Endo Denies change in libido Physical Exam Const General: cooperative, healthy appearing, comfortable and no acute distress Orientation/consciousness: patient oriented x3 HEENT Face and sinus: Yes normal facial exam Mouth: moist mucous membranes Neck Neck: Yes normal visual inspection, Yes full ROM and Yes trachea midline Chest Chest palpation & inspection: normal inspection of the chest Resp Effort & Inspection: normal respiratory effort, able to speak in complete sentences and no respiratory distress GI Inspection: Yes normal to inspection Back/Spine/Pelvis Cervical Spine: normal cervical lordosis Thoracic/Lumbar Spine: thoracic and lumbar spine normal to inspection Skin General skin exam: no rashes or lesions noted Neuro General: patient oriented x3, gait normal, tone normal and moves all extremities Extrem General: Yes normal to inspection and Yes capillary refill normal Office Procedures Cystoscopy Consent Discussed risk and benefit or proposed procedure with the patient. Information consent for procedure given to the patient. Discussed technical aspects, risks, benefits and alternatives in full. Addressed all of the patient's questions and concerns regarding the procedure. The patient demonstrated knowledge and understanding. They wish to proceed with this procedure. Preparation The patient was prepped in the usual manner. A neon sign installer was present and in the room. Genitalia was prepped with betadine solution in a sterile manner. Lidocaine Jelly 2% was placed into the urethra and 16Fr flexible Olympus cystoscope was inserted into the meatus after adequate lubrication. Procedure Cystoscopy performed using a disposable [employer] Midstream digital 16 Sloven[place] cystoscope. Meatus uncircumcised Urethra anterior and posterior urethra normal Prostatic Urethra trilobar hyperplasia Bladder examination with retroflexion of cystoscope Bladder Orifices normal shape and position Bladder Capacity normal Trabeculations grade 1 Cellule Formation - Diverticulum Formation - Mucosal Erythema - Bladder Tumor - 57098-[id number] DISPOSABLE SCOPE URO-G FLEXIBLE SCOPE Procedure code (CPT) selection complete Office Meds lidocaine HCl 2 % mucosal jelly in applicator Performing Provider: Fidencio Rhodes MD Performing Location: [facility] [place] [facility] Administered by: Una Tyson RN on 03/21/24 10:32 Dose Route Admin Location Dispensed Lot Number Expiration Date NDC Ground Water Technician 10 mL intra-urethral 10 mL nitrofurantoin monohydrate/macrocrystals 100 mg capsule Performing Provider: Fidencio Rhodes MD Performing Location: [facility] [place] [facility] Administered by: Una Tyson RN on 03/21/24 10:32 Dose Route Admin Location Dispensed Lot Number Expiration Date NDC Ground Water Technician 100 mg PO 1 cap naproxen 500 mg tablet Performing Provider: Fidecnio Rhodes MD Performing Location: [facility] [place] [facility] Administered by: Una Tyson RN on 03/21/24 10:32 Dose Route Admin Location Dispensed Lot Number Expiration Date NDC Ground Water Technician 500 mg PO 1 tab Assessment & Plan Assessment & Plan (1) BPH w urinary obs/LUTS: Code(s): N40.1 - Benign prostatic hyperplasia with lower urinary tract symptoms; N13.8 - Other obstructive and reflux uropathy Category: Medical (2) Nocturia more than twice per night: Code(s): R35.1 - Nocturia Category: Medical (3) Weak urinary stream: Code(s): R39.12 - Poor urinary stream Category: Medical (4) Acute retention of urine: Code(s): R33.8 - Other retention of urine Category: Medical Plan We discussed the nature of the decision and reasonable options for performing a prostate intervention. Interventions include TURP, GreenLight laser enucleation of the prostate, GreenLight laser ablation of the prostate, transurethral incision of the prostate, and I-Tend prostate procedure. Options such as medical therapy were discussed. The relative uncertainties and benefits related to each alternate procedure were adequately discussed. General surgical risks including, but not limited to, pain, bleeding, infection, myocardial infarction, pulmonary embolus, deep vein thrombosis and cerebrovascular accident which may result in further hospitalization were discussed. Full disclosure of the procedure as well as all major risks, benefits and complications were discussed including but not limited to damage to the urethra or bladder neck, recurrent BPH, retrograde ejaculation, bladder infection, urge, de gagandeep frequency, incomplete emptying, dysuria, remote chance of erectile dysf unction, epididymitis, and meatal stenosis. The success rate of the procedure was discussed. Success of the procedure in the short-term does not necessarily guarantee that long-term success will be maintained. Suitable follow up will need to be maintained. The patient showed understanding of discussion. An opportunity was provided for questions to be answered and wishes to proceed with the following procedure. - GreenLight laser prostatectomy Orders: Orders AMB Cystoscopy Today N13.8 - Other obstructive and reflux uropathy, N40.1 - Benign prostatic hyperplasia with lower urinary tract symptoms Patient Instructions: Imaging studies, laboratory and physical exam results were discussed and reviewed in detail. No major barriers to patient understanding were identified. An opportunity to ask questions regarding the treatment plan was provided. All questions were answered. The patient expressed understanding and agreement with the above treatment plan. The patient is aware they should contact our office by phone for worsening of their current condition or the appearance of new urologic symptoms. Compliance is encouraged with any medications and followup testing that is ordered. It is a privilege to participate in the urologic care of your patient. If you have any questions or concerns regarding treatment for the above conditions, or other urologic issues, please do not hesitate to contact me. The office te [place]rent[place] contact is [phone]. This note is constructed using voice recognition software. While every effort has been made to ensure accuracy assistant strength coach errors may have been included. Yours sincerely, Dr Fidencio Rhodes MD, [facility] - Urology Providers of Expert, Compassionate Care for the Genitourinary System Coding Level of Care Code Est Pt Level 4 (94001) Diagnoses BPH w urinary obs/LUTS N40.1; N13.8 Nocturia more than twice per night R35.1 Weak urinary stream R39.12 Acute retention of urine R33.8 CPT Codes Cystoscopy - CPT: 38552-Eyogcepual ([id number])
== END 2024-03-21 10:46 | disposition home or self-care (01) ==
PROVIDERS: PCP Internal Medicine; Visit Provider Urology
DX: N40.1 Benign prostatic hyperplasia with lower urinary tract symptoms (principal); N13.8 Other obstructive and reflux uropathy; R35.1 Nocturia; R39.12 Poor urinary stream; R33.8 Other retention of urine
CPT/HCPCS: 52000; 99214

== ENCOUNTER → 2024-03-21 09:29 | Outpatient (BNVA) | payer MEDICARE, SELFPAY | PROVIDERS: PCP Internal Medicine; Visit Provider Urology | DX: N40.1 Benign prostatic hyperplasia with lower urinary tract symptoms (principal); N13.8 Other obstructive and reflux uropathy; R35.1 Nocturia; R39.12 Poor urinary stream; R33.8 Other retention of urine | CPT/HCPCS: 52000; 99212 ==

== ENCOUNTER 2024-06-10 09:36 | Outpatient (AMB) | payer MEDICARE, SELFPAY ==
[2024-06-10 09:42] VITALS: BP 124/68; PULSE 60; O2SAT 98; BMI 25.8
--- NOTE | 2024-06-10 09:42 | MHC.PC.OV ---
Vital Signs 06/10/24 09:42 Height 5 ft 6 in Weight 160 lb BMI 25.8 BP 124/68 Blood Pressure Location Lt brachial Position Sitting Pulse 60 Pulse Source Pulse Oximeter Pulse Oximetry (%) 98 Oxygen Delivery Method Room Air Intake Visit Reasons: 3mth f/u Information Security Officer: Not Required per policy Accompanied by: Self / Same As Patient Allergies No Known Allergies Allergy (Verified 03/11/24 10:19) Tobacco use date assessed: 12/11/23 Fall risk assessment: No Falls in past year Last assessed Fall Risk: 06/10/24 Dental Screening Dental Screen Date: 12/11/23 HPI 3mth f/u HPI Details hypertension on rx; doing well; stable [facility] Medical History Pre-op exam Cerumen impaction Dizzy spells Right inguinal hernia Urinary tract infection Other obstructive and reflux uropathy Polymyalgia rheumatica RBBB HTN (hypertension) Hyperlipidemia CAD (coronary artery disease) Surgical History History of colonoscopy Stented coronary artery Hx of cardiac cath Family History Father CVD (cardiovascular disease) Mother CVD (cardiovascular disease) Social History Household Members: None Housing: House Are you a primary director long term care to a significant other at home: No Do you presently have visiting nurse or other home services: No Alcohol intake: never Comment: aware of trip hazard Patient Tobacco Use Status: Never used Tobacco e-Cigarette/Vaping Use: Never Used Second Hand Smoke Exposure: No service: No Current occupational status: retired Current occupational exposures/hazards: No Cognitive needs: No Hearing needs: Yes Vision needs: Yes Questionnaire Thrive Questionnaire Date Thrive assessed: 12/11/23 ROBE-7 AMB Questionnaire ROBE-7 Date ROBE - 7 assessed: 12/11/22 Source: Developed by Drs. Juan Carlos Finch, Heike Roberson, Justin Rene and colleagues, with an educational suzanne from [employer]. Review of Systems Const Denies chills, Denies headache(s) and Denies weight loss ENT Denies headache(s) Card Denies chest pain, Denies syncope, Denies irregular heart rhythm and Denies dyspnea Resp Denies chest congestion, Denies cough and Denies dyspnea GI Denies abdominal pain, Denies change in stool character, Denies nausea and Denies vomiting Musc Denies deformity and Denies joint swelling Neuro Denies syncope and Denies headache(s) Physical exam (Primary Care) Vital Signs: Last Vital Signs Pulse 60 06/10/24 09:42 BP 124/68 06/10/24 09:42 Pulse Ox 98 06/10/24 09:42 Oxygen Delivery Method Room Air 06/10/24 09:42 BMI result Body Mass Index 25.8 Tobacco/Smoking Status: Tobacco use Status Tobacco use date assessed 12/11/23 06/10/24 09:46 Patient Tobacco Use Status Never used Tobacco 06/10/24 09:46 e-Cigarette/Vaping Use Never Used 06/10/24 09:46 Thrive Assessment: Date of Thrive Assessment Date Thrive assessed 12/11/23 06/10/24 09:46 Const General: cooperative, comfortable, no acute distress and alert Neck Neck: Yes no lymphadenopathy Thyroid: Thyroid normal Resp Effort & Inspection: normal respiratory effort Auscultation: clear to auscultation bilaterally Percussion: percussion normal Cardio Jugular venous distension: no JVD Palpation: normal PMI Rate: regular rate Rhythm: regular rhythm Heart sounds: S1 normal heart sound present and S2 normal heart sound present GI Inspection: Yes normal to inspection Palpation (GI): No hepatosplenomegaly present Skin General skin exam: no rashes or lesions noted Extrem General: Yes no clubbing, cyanosis or edema Assessment and Plan Assessment & Plan (1) Hypertension: Code(s): I10 - Essential (primary) hypertension Plan: stable; same rx Orders: Orders Lipid Panel Today Z13.220 - Encounter for screening for lipoid disorders Referrals Podiatry Referral M79.673 - Pain in unspecified foot Coding Level of Care Code Est Pt Level 3 (81048) Diagnoses Hypertension I10
== END 2024-06-10 09:58 | disposition home or self-care (01) ==
PROVIDERS: PCP Internal Medicine; Visit Provider Internal Medicine
DX: I10 Essential (primary) hypertension (principal)
CPT/HCPCS: 99213

== ENCOUNTER 2024-08-26 12:57 | Outpatient (AMB) | payer MEDICARE, SELFPAY ==
--- NOTE | 2024-08-26 12:53 | A.OFFVIS_ITS ---
Intake Visit Reasons: Discuss Greenlight Intake Note: Patient is present for Discuss Greenlight Urology Medication:finasteride Antibiotic Allergy:none Blood Thinner:eliquis Balance Bridge Assembler Required: No Allergies No Known Allergies Allergy (Verified 08/26/24 12:54) HPI Comments Details: Mohsen is a pleasant male. He is a patient of Dr Joe. He is here for the following - lower urinary tract symptoms Telemedicine Evaluation 15 min Consultation [employer] Zhang Video attempted Cystoscopy trilobar hypertrophy Bladder US 03/05 80 cc prostate RAFA normal 2022 Lower urinary tract symptoms Improvement with terazosin to 1-2 times per night nocturia Initial symptoms nocturia 3-4 times per night Occasional urgency frequency Prior treatments - tamsulosin which made him dizzy Current symptoms - nocturia, weakness of stream, PVR 01/30 25cc PSA 05/31 3.6, 12/03 2.2 Cystoscopy 05/02 - trilobar hypertrophy, 04/04 Therapeutic plan - greenlight laser [facility] Medical History Pre-op exam Cerumen impaction Dizzy spells Right inguinal hernia Urinary tract infection Other obstructive and reflux uropathy Polymyalgia rheumatica RBBB HTN (hypertension) Hyperlipidemia CAD (coronary artery disease) Surgical History History of colonoscopy Stented coronary artery Hx of cardiac cath Family History Father CVD (cardiovascular disease) Mother CVD (cardiovascular disease) Social History Household Members: None Housing: House Are you a primary post acute care nurse practitioner to a significant other at home: No Do you presently have visiting nurse or other home services: No Alcohol intake: never Comment: aware of trip hazard Patient Tobacco Use Status: Never used Tobacco e-Cigarette/Vaping Use: Never Used Second Hand Smoke Exposure: No service: No Current occupational status: retired Current occupational exposures/hazards: No Cognitive needs: No Hearing needs: Yes Vision needs: Yes Review of Systems Const All systems reviewed & are unremarkable except as noted in HPI and below Reports no additional complaints Resp Reports no additional complaints GI Reports no additional complaints Reports as per HPI Musc Reports no additional complaints Physical Exam Telemedicine evaluation Appropriate responses Regular breathing rate and rhythm HEENT Head: Yes normal to inspection Ears: hearing grossly normal bilaterally Eyes General: appearance normal, both eyes and all related structures Neck Neck: Yes normal visual inspection Chest Chest palpation & inspection: normal inspection of the chest Resp Effort & Inspection: normal respiratory effort and able to speak in complete sentences Telehealth Telehealth Telehealth Platform: Mindmancer Location of provider rendering services: practice address Location of patient: address on file Patient Identification confirmed using: Name, : Yes Telehealth method: video Patient verbally consented to treatment: Yes Patient verbally consented to billing insurance company: Yes Patient informed of any privacy concerns related to visit: Yes Minutes spent on Phone/Video with Pt.: 15 Assessment & Plan Assessment & Plan (1) BPH w urinary obs/LUTS: Code(s): N40.1 - Benign prostatic hyperplasia with lower urinary tract symptoms; N13.8 - Other obstructive and reflux uropathy Category: Medical (2) Nocturia more than twice per night: Code(s): R35.1 - Nocturia Category: Medical Plan We discussed the nature of the decision and reasonable options for performing a prostate intervention. Interventions include TURP, GreenLight laser enucleation of the prostate, GreenLight laser ablation of the prostate, transurethral incision of the prostate, and I-Tend prostate procedure. Options such as medical therapy were discussed. The relative uncertainties and benefits related to each alternate procedure were adequately discussed. General surgical risks including, but not limited to, pain, bleeding, infection, myocardial infarction, pulmonary embolus, deep vein thrombosis and cerebrovascular accident which may result in further hospitalization were discussed. Full disclosure of the procedure as well as all major risks, benefits and complications were discussed including but not limited to damage to the urethra or bladder neck, recurrent BPH, retrograde ejaculation, bladder infection, urge, de gagandeep frequency, incomplete emptying, dysuria, remote chance of erectile dysfunction, epididymitis, and meatal stenosis. The success rate of the procedure was discussed. Success of the procedure in the short-term does not necessarily guarantee that long-term success will be maintained. Suitable follow up will need to be ma intained. The patient showed understanding of discussion. An opportunity was provided for questions to be answered and wishes to proceed with the following procedure. - GreenLight laser Medications: Discontinued apixaban (Eliquis) Discontinued Reason: Patient Completed Course 5 mg PO BID 14 tabs 0RF Patient Instructions: Imaging studies, laboratory and physical exam results were discussed and reviewed in detail. No major barriers to patient understanding were identified. An opportunity to ask questions regarding the treatment plan was provided. All questions were answered. The patient expressed understanding and agreement with the above treatment plan. The patient is aware they should contact our office by phone for worsening of their current condition or the appearance of new urologic symptoms. Compliance is encouraged with any medications and followup testing that is ordered. It is a privilege to participate in the urologic care of your patient. If you have any questions or concerns regarding treatment for the above conditions, or other urologic issues, please do not hesitate to contact me. The office telephone contact is [phone]. This note is constructed using voice recognition software. While every effort has been made to ensure accuracy flight attendant errors may have been included. Yours sincerely, Dr Fidencio Rhodes MD, [facility] - Urology Providers of Expert, Compassionate Care for the Genitourinary System Coding Level of Care Code Tele Est Pt Level 4 (05716) Diagnoses BPH w urinary obs/LUTS N40.1; N13.8 Nocturia more than twice per night R35.1
== END 2024-08-26 14:29 | disposition home or self-care (01) ==
LOC: HO.HUSH 12:57
PROVIDERS: PCP Internal Medicine; Visit Provider Urology
DX: N40.1 Benign prostatic hyperplasia with lower urinary tract symptoms (principal); N13.8 Other obstructive and reflux uropathy; R35.1 Nocturia
CPT/HCPCS: 99213

== ENCOUNTER → 2024-08-26 12:57 | Outpatient (BNVA) | payer MEDICARE, SELFPAY | PROVIDERS: PCP Internal Medicine; Visit Provider Urology ==

== ENCOUNTER 2024-09-11 09:41 | Outpatient (AMB) | payer MEDICARE, SELFPAY ==
[2024-09-11 09:46] VITALS: BP 118/66; PULSE 61; O2SAT 97; BMI 26.1
--- NOTE | 2024-09-11 09:46 | MHC.PC.OV ---
Vital Signs 09/11/24 09:46 Height 5 ft 6 in Weight 162 lb BMI 26.1 BP 118/66 Blood Pressure Location Lt brachial Position Sitting Pulse 61 Pulse Source Pulse Oximeter Pulse Oximetry (%) 97 Oxygen Delivery Method Room Air Intake Visit Reasons: 3 month follow up Tattoo Designer Required: No Accompanied by: Self / Same As Patient Allergies No Known Allergies Allergy (Verified 09/11/24 09:46) Medication List - Last Reconciled 09/11/24 by Rikki Joe MD apixaban (Eliquis) 5 mg PO BID 90 days atorvastatin 40 mg PO DAILY calcium carbonate-vitamin D3 600 mg-10 mcg (400 unit) (Calcium with Vitamin D) 1 tab PO BID carvedilol 12.5 mg PO BID clopidogrel 75 mg PO DAILY finasteride 5 mg PO DAILY@1700 finasteride 5 mg PO DAILY 90 days walker Folding Front wheeled walker Tobacco use date assessed: 12/11/23 Fall risk assessment: No Falls in past year Last assessed Fall Risk: 09/11/24 Dental Screening Dental Screen Date: 12/11/23 HPI 3 month follow up HPI Details hyperlipidemia on rx; doing well; compliant [facility] Medical History Pre-op exam Cerumen impaction Dizzy spells Right inguinal hernia Urinary tract infection Other obstructive and reflux uropathy Polymyalgia rheumatica RBBB HTN (hypertension) Hyperlipidemia CAD (coronary artery disease) Surgical History History of colonoscopy Stented coronary artery Hx of cardiac cath Family History Father CVD (cardiovascular disease) Mother CVD (cardiovascular disease) Social History Household Members: None Housing: House Are you a primary patient care nursing assistant to a significant other at home: No Do you presently have visiting nurse or other home services: No Alcohol intake: never Comment: aware of trip hazard Patient Tobacco Use Status: Never used Tobacco Tobacco use type: Cigarette e-Cigarette/Vaping Use: Never Used Second Hand Smoke Exposure: No service: No Current occupational status: retired Current occupational exposures/hazards: No Cognitive needs: No Hearing needs: Yes Vision needs: Yes Questionnaire Thrive Questionnaire Date Thrive assessed: 12/11/23 ROBE-7 AMB Questionnaire ROBE-7 Date ROBE - 7 assessed: 12/11/22 Source: Developed by Drs. Juan Carlos Finch, Heike Roberson, Justin Rene and colleagues, with an educational suzanne from [employer]. Review of Systems Const Denies chills, Denies headache(s) and Denies weight loss ENT Denies headache(s) Card Denies chest pain, Denies syncope, Denies irregular heart rhythm and Denies dyspnea Resp Denies chest congestion, Denies cough and Denies dyspnea GI Denies abdominal pain, Denies change in stool character, Denies nausea and Denies vomiting Musc Denies deformity and Denies joint swelling Neuro Denies syncope and Denies headache(s) Physical exam (Primary Care) Vital Signs: Last Vital Signs Pulse 61 09/11/24 09:46 BP 118/66 09/11/24 09:46 Pulse Ox 97 09/11/24 09:46 Oxygen Delivery Method Room Air 09/11/24 09:46 BMI result Body Mass Index 26.1 Tobacco/Smoking Status: Tobacco use Status Tobacco use date assessed 12/11/23 09/11/24 09:50 Patient Tobacco Use Status Never used Tobacco 09/11/24 09:50 Tobacco use type Cigarette 09/11/24 09:50 e-Cigarette/Vaping Use Never Used 09/11/24 09:50 Thrive Assessment: Date of Thrive Assessment Date Thrive assessed 12/11/23 09/11/24 09:50 Const General: cooperative, comfortable, no acute distress and alert Neck Neck: Yes no lymphadenopathy Thyroid: Thyroid normal Resp Effort & Inspection: normal respiratory effort Auscultation: clear to auscultation bilaterally Percussion: percussion normal Cardio Jugular venous distension: no JVD Palpation: normal PMI Rate: regular rate Rhythm: regular rhythm Heart sounds: S1 normal heart sound present and S2 normal heart sound present GI Inspection: Yes normal to inspection Palpation (GI): No hepatosplenomegaly present Skin General skin exam: no rashes or lesions noted Extrem General: Yes no clubbing, cyanosis or edema Coding Level of Care Code Est Pt Level 3 (94663) Diagnoses Hyperlipidemia E78.5 Assessment & Plan Assessment & Plan (1) Hyperlipidemia: Code(s): E78.5 - Hyperlipidemia, unspecified Category: Medical Plan: stable; same rx Orders: Orders Lipid Panel Today Z13.220 - Encounter for screening for lipoid disorders Thyroid Stimulating Hormone Today Z13.29 - Encounter for screening for other suspected endocrine disorder Complete Blood Count Auto Diff Today Z13.0 - Encounter for screening for diseases of the blood and blood-forming organs and certain disorders involving the immune mechanism Comprehensive [place]. Panel Fast Today Z13.9 - Encounter for screening, unspecified
== END 2024-09-11 10:05 | disposition home or self-care (01) ==
LOC: HO.HMCH 09:41
PROVIDERS: PCP Internal Medicine; Visit Provider Internal Medicine
DX: E78.5 Hyperlipidemia, unspecified (principal)

== ENCOUNTER → 2024-09-11 09:41 | Outpatient (BNVA) | payer MEDICARE, SELFPAY | PROVIDERS: PCP Internal Medicine; Visit Provider Internal Medicine | DX: E78.5 Hyperlipidemia, unspecified (principal) | CPT/HCPCS: 99212 ==

== ENCOUNTER 2024-09-15 07:36 | Outpatient (REF) | payer MEDICARE, SELFPAY ==
[2024-09-15 07:57] LABS: MANUAL DIFF FLAG NO
[2024-09-15 08:25] LABS: Basophils Absolute Auto 0.1 X10*3/uL (0.0-0.2); Basophils Percent Auto 0.7 % (0-2); Eosinophils Absolute Auto 0.1 X10*3/uL (0.0-0.4); Eosinophils Percent Auto 1.7 % (0-4); Hematocrit 47.3 % (42.0-52.0); Hemoglobin 16.6 g/dl (14.0-18.0); Imm Gran Abs Auto 0.02 X10*3/uL (0.00-0.03); Imm Gran Pct Auto 0.3 % (0.0-0.4); Lymphocytes Absolute Auto 1.5 X10*3/uL (1.2-4.9); Lymphocytes Percent Auto 20.6 % (20-40); Mean Corpuscular HGB Conc 35.1 g/dl (31.0-36.0); Mean Corpuscular Hemoglobin 32.9 pg (27.0-33.0); Mean Corpuscular Volume 93.8 fL (80.0-98.0); Mean Platelet Volume 11.5 fL (9.4-12.4); Monocytes Absolute Auto 0.8 X10*3/uL (0.1-1.2); Monocytes Percent Auto 10.8 % (2-11); Neutrophils Absolute Auto 4.7 x10*3/uL (2.0-8.3); Neutrophils Percent Auto 65.9 % (45-73); Platelet Count 181 X10*3/uL (160-400); Red Blood Count 5.04 X10*6/uL (4.60-5.80); Red Cell Distribution Width 12.1 % (11.0-16.0); White Blood Count 7.1 X10*3/uL (4.8-10.8)
[2024-09-15 08:56] LABS: Alanine Aminotransferase 25 U/L (0-40); Albumin Level 4.2 g/dL (3.5-5.0); Alkaline Phosphatase 70 U/L (39-117); Anion Gap 12 (12-20); Aspartate Amino Transferase 28 U/L (5-37); Bilirubin Total 1.4 mg/dL (0.0-1.0); Blood Urea Nitrogen 20 mg/dL (9-16); Calcium 10.1 mg/dL (8.4-10.2); Carbon Dioxide 29 mmol/L (22-29); Chloride 105 mmol/L (96-108); Cholesterol 133 mg/dL (<200); Estimated Glomerular Filt Rate > 60; Glucose Fasting 112 mg/dL (60-99); HDL Cholesterol 49 mg/dL (>40); LDL Cholesterol Calculated 67 mg/dL (<100); Potassium 4.7 mmol/L (3.3-5.1); Sodium 141 mmol/L (135-145); Total Protein 7.1 g/dL (6.5-8.0); Triglycerides 87 mg/dL (<150)
[2024-09-15 09:09] LABS: Thyroid Stimulating Hormone 0.56 uIU/mL (0.32-4.0)
[2024-09-15 09:13] LABS: Prostate Specific Antigen 1.04 ng/mL (<0.05-4.0)
== END 2024-09-15 07:37 | disposition home or self-care (01) ==
LOC: HO.LAB 07:36
PROVIDERS: Urology; PCP Internal Medicine; Visit Provider Internal Medicine
DX: N40.1 Benign prostatic hyperplasia with lower urinary tract symptoms (principal); N13.8 Other obstructive and reflux uropathy; Z13.220 Encounter for screening for lipoid disorders; Z13.9 Encounter for screening, unspecified; Z13.29 Encounter for screening for other suspected endocrine disorder; Z13.0 Encounter for screening for diseases of the blood and blood-forming organs and certain disorders involving the immune mechanism; Z12.5 Encounter for screening for malignant neoplasm of prostate
CPT/HCPCS: 36415; 80053; 80061; 84153; 84443; 85025

== ENCOUNTER 2024-12-09 07:34 | Outpatient (REF) | payer MEDICARE, SELFPAY ==
--- OUTSIDE RECORDS SUMMARY | 2024-12-09 07:38 | XMS_ITS ---
Author Organization [facility] Address [address] [place] [address] Care Team Providers Care Crane Assembler Name Role Phone Heath RILEY, Rikki Primary Care Provider Unavaila Alice Rodriguez [phone] REASON FOR VISIT no ppwrk Encounters Encounter Location Date Provider Diagnosis [facility] [address] [place] [address] 09/29/2024 Alice Diez Plan Of Treatment No Information Progress Notes * Mohsen NAYLOR ADOB: 3 (79 yo M)Acc No.[id number]:09/29/2024 Progress Notes Patient:?Mohsen NAYLOR Provider:?Alice Diez DPM :1945???Age:79 Y???Sex:Male Ari e:09/29/2024 Address:[address] [place], [place] [phone] Pcp:Rikki Joe MD Subjective: * Chief Complaints: * ???1. No ppwrk. * Medical History:? Objective: * Vitals:? Assessment: Plan: * Treatment: * Images: * The named appointment provid er may or may not be the originator of this progress note, and it is not deemed complete until electronically signed by the appointment provider. Sign off status: Pending * Provider:Linette Diez DPM Date:?2023 Generated for Brigette ball/[place]/eTransmitting on:?12/09/2024 07:37 AM EST
--- OUTSIDE RECORDS SUMMARY | 2024-12-09 07:38 | XMS_ITS | Patient Health Record ---
[facility] Address [address] [place] [address] Care Team Providers Care Gripper Installer Name Role Phone Heath RILEY, Rikki Primary Care Provider Unavaila raheem Black, Alice Unavailable [phone] Reason For Referral No Information Plan Of Treatment No Information Insurance Providers Payer Name Payer Address Payer Phone Subscriber Number Group Number Insured Name Patient Relationship to Insured Coverage Start Date Coverage End Date Medicare National Govt Sv[employer] Inc [address] [place] [address] [phone] Mohsen Naylor Self - patient is the insured [employer] Blue [employer] [address] [place] [address] [phone] Mohsen Naylor Self - patient is the insured
== END 2024-12-09 07:35 | disposition home or self-care (01) ==
LOC: HO.LAB 07:34
PROVIDERS: PCP Internal Medicine; Visit Provider Internal Medicine
DX: Z13.89 Encounter for screening for other disorder (principal)

== ENCOUNTER 2024-12-10 07:24 | Outpatient (REF) | payer MEDICARE, SELFPAY ==
--- OUTSIDE RECORDS SUMMARY | 2024-12-10 07:27 | XMS_ITS ---
Author Organization [facility] Address [address] [place] [address] Care Team Providers Care Contact Lens Flashing Puncher Name Role Phone Heath RILEY, Rikki Primary Care Provider Unavaila Alice Rodriguez [phone] REASON FOR VISIT no ppwrk Encounters Encounter Location Date Provider Diagnosis [facility] [address] [place] [address] 09/29/2024 Alice Diez Plan Of Treatment No Information Progress Notes * Mohsen NAYLOR ADOB: 3 (79 yo M)Acc No.[id number]:09/29/2024 Progress Notes Patient:?Mohsen NAYLOR Provider:?Alice Diez DPM :1945???Age:79 Y???Sex:Male Ari e:09/29/2024 Address:[address] [place], [place] [phone] Pcp:Rikki Joe MD Subjective: * Chief Complaints: [...] Diez DPM Date:?2023 Generated for Brigette ball/[place]/eTransmitting on:?12/10/2024 07:27 AM EST
--- OUTSIDE RECORDS SUMMARY | 2024-12-10 07:27 | XMS_ITS | Patient Health Record ---
[facility] Address [address] [place] [address] Care Team Providers Care Pump Installation And Servicer Name Role Phone Heath RILEY, Rikki Primary Care Provider Unavaila raheem Black, Alice Unavailable [phone] Reason For Referral No Information Plan Of Treatment No Information Insurance Providers Payer Name Payer Address Payer Phone Subscriber Number Group Number Insured Name Patient Relationship to Insured Coverage Start Date Coverage End Date Medicare National Govt Svcs Inc [address] [place] [address] [phone] Mohsen Naylor Self - patient is the insured [employer] Blue [employer] [address] [place] [address] Mohsen Naylor Self - patient is the insured
== END 2024-12-10 07:25 | disposition home or self-care (01) ==
LOC: HO.LAB 07:24
PROVIDERS: PCP Internal Medicine; Visit Provider Internal Medicine
DX: Z13.89 Encounter for screening for other disorder (principal)

== ENCOUNTER 2024-12-12 09:19 | Outpatient (AMB) | payer MEDICARE, SELFPAY ==
--- NOTE | 2024-12-12 09:29 | A.OFFPC_ITS ---
Vital Signs 12/12/24 09:33 Height 5 ft 6 in Weight 163 lb 4 oz BMI 26.3 BP 112/62 Blood Pressure Location Lt brachial Position Sitting Pulse 60 Pulse Source Pulse Oximeter Temp 97.1 F Temp Source Skin Pulse Oximetry (%) 97 Oxygen Delivery Method Room Air Intake Visit Reasons: 3mth f/u Intake Note: Patient is here to follow up on PAfib. Escapement Maker Required: No Furrier Apprentice: Not Required per policy Accompanied by: Self / Same As Patient Allergies No Known Allergies Allergy (Verified 12/12/24 09:32) Medication List - Last Reconciled 12/12/24 by Rikki Joe MD apixaban (Eliquis) 5 mg PO BID atorvastatin 40 mg PO DAILY calcium carbonate-vitamin D3 600 mg-10 mcg (400 unit) (Calcium with Vitamin D) 1 tab PO BID carvedilol 12.5 mg PO BID clopidogrel 75 mg PO DAILY finasteride 5 mg PO DAILY@1700 finasteride 5 mg PO DAILY 90 days walker Folding Front wheeled walker Tobacco use date assessed: 12/12/24 Fall risk assessment: No Falls in past year Last assessed Fall Risk: 12/12/24 Dental Screening Dental Screen Date: 12/12/24 Did you have a dental visit in the last 12 months?: No Did you have a dental problem in the last 6 months where you did not have access to dental care?: No Was dental information given to patient?: Patient has dentist HPI 3mth f/u HPI Details has an enlarged prostate with nocturia and frequency PFSH Medical History Pre-op exam Cerumen impaction Dizzy spells Right inguinal hernia Urinary tract infection Other obstructive and reflux uropathy Polymyalgia rheumatica RBBB HTN (hypertension) Hyperlipidemia CAD (coronary artery disease) Surgical History History of colonoscopy Stented coronary artery Hx of cardiac cath Family History Father CVD (cardiovascular disease) Mother CVD (cardiovascular disease) Social History Household Members: None Housing: House Are you a primary manager wound care to a significant other at home: No Do you presently have visiting nurse or other home services: No Alcohol intake: never Comment: aware of trip hazard Patient Tobacco Use Status: Never used Tobacco Tobacco use type: Cigarette e-Cigarette/Vaping Use: Never Used Second Hand Smoke Exposure: No service: No Current occupational status: retired Current occupational exposures/hazards: No Cognitive needs: No Hearing needs: Yes Vision needs: Yes Questionnaire PHQ-9 Over the last 2 weeks, how often have you been bothered by any of the following problems? 1. Little interest or pleasure in doing things: not at all 2. Feeling down, depressed, or hopeless: not at all 3. Trouble falling or staying asleep, or sleeping too much: not at all 4. Feeling tired or having little energy: not at all 5. Poor appetite or overeating: not at all 6. Feeling bad about yourself - or that you are a failure or have let yourself or your family down: not at all 7. Trouble concentrating on things, such as reading the newspaper or watching television: not at all 8. Moving or speaking so slowly that other people could have noticed. Or the opposite - being so fidgety or restless that you have been moving around a lot more than usual: not at all 9. Thoughts that you would be better off or of hurting yourself in some way: not at all Total score: 0 Depression Screening Interpretation: Negative Depression Screening Done: Yes Source: Developed by Drs. Juan Carlos Finch, Heike Roberson, Justin Rene and colleagues, with an educational suzanne from [employer]. Thrive Questionnaire Date Thrive assessed: 12/12/24 I am a: Patient What is your living situation today?: I have a steady place to live Within the past 12 months, did the food you bought not last and you didn't have the money to get more?: Never true Within the past 12 months, did you worry whether your food would run out before you got money to buy more?: Never true Do you have trouble paying for medicines?: No Do you have trouble getting transportation to medical appointments?: No Do you have trouble paying your heating and electricity bill?: No Do you have trouble taking care of your child, family member or friend?: No Do you have trouble with day-to-day activities such as bathing, preparing meals, shopping, managing finances, etc.?: No Are you currently unemployed and looking for a job?: No Are you interested in more education?: No Please select the resources that you would like help with: None Currently or been in a relationship where the following occur: No concerns reported THRIVE Score: 0 AUDIT C Alcohol Use Questionnaire (AUDIT-C) 1. How often do you have a drink containing alcohol?: Never Total Score: 0 ROBE-7 AMB Questionnaire ROBE-7 Date ROBE - 7 assessed: 12/12/24 Feeling nervous, anxious, or on edge: 0 = Not at all Not being able to stop or control worryin = Not at all Worrying too much about different things: 0 = Not at all Trouble relaxin = Not at all Being so restless that it is hard to sit still: 0 = Not at all Becoming easily annoyed or irritable: 0 = Not at all Feeling afraid as if something awful might happen: 0 = Not at all Total ROBE-7 score (0-4 normal; 5-9 mild; 10-14 moderate; 15-21 severe): 0 Source: Developed by Drs. Juan Carlos Finch, Heike Roberson, Justin Rene and colleagues, with an educational suzanne from [employer]. Review of Systems Const Denies chills, Denies headache(s) and Denies weight loss ENT Denies headache(s) Card Denies chest pain, Denies syncope, Denies irregular heart rhythm and Denies dyspnea Resp Denies chest congestion, Denies cough and Denies dyspnea GI Denies abdominal pain, Denies change in stool character, Denies nausea and Denies vomiting Musc Denies deformity and Denies joint swelling Neuro Denies syncope and Denies headache(s) Physical exam (Primary Care) Vital Signs: Last Vital Signs Temp 97.1 F 12/12/24 09:33 Pulse 60 12/12/24 09:33 BP 112/62 12/12/24 09:33 Pulse Ox 97 12/12/24 09:33 Oxygen Delivery Method Room Air 12/12/24 09:33 BMI result Body Mass Index 26.3 Tobacco/Smoking Status: Tobacco use Status Tobacco use date assessed 12/12/24 12/12/24 09:37 Patient Tobacco Use Status Never used Tobacco 12/12/24 09:32 Tobacco use type Cigarette 12/12/24 09:32 e-Cigarette/Vaping Use Never Used 12/12/24 09:32 PHQ-9: PHQ-9 Score PHQ-9: Total score 0 12/12/24 09:32 Depression Screening Interpretation: Negative Thrive Assessment: Date of Thrive Assessment Date Thrive assessed 12/12/24 12/12/24 09:32 Currently or been in a relationship where the following occur: No concerns reported Const General: cooperative, comfortable, no acute distress and alert Neck Neck: Yes no lymphadenopathy Thyroid: Thyroid normal Resp Effort & Inspection: normal respiratory effort Auscultation: clear to auscultation bilaterally Percussion: percussion normal Cardio Jugular venous distension: no JVD Palpation: normal PMI Rate: regular rate Rhythm: regular rhythm Heart sounds: S1 normal heart sound present and S2 normal heart sound present GI Inspection: Yes normal to inspection Palpation (GI): No hepatosplenomegaly present Skin General skin exam: no rashes or lesions noted Extrem General: Yes no clubbing, cyanosis or edema Coding Level of Care Code Est Pt Level 3 (12614) Diagnoses BPH w urinary obs/LUTS N40.1; N13.8 Assessment & Plan Assessment & Plan (1) BPH w urinary obs/LUTS: Code(s): N40.1 - Benign prostatic hyperplasia with lower urinary tract symptoms; N13.8 - Other obstructive and reflux uropathy Category: Medical Plan: ref to urolgy Orders: Referrals Urology Referral N13.8 - Other obstructive and reflux uropathy, N40.1 - Benign prostatic hyperplasia with lower urinary tract symptoms
[2024-12-12 09:33] VITALS: BP 112/62; PULSE 60; TEMP 36.2; O2SAT 97; BMI 26.3
== END 2024-12-12 10:38 | disposition home or self-care (01) ==
PROVIDERS: PCP Internal Medicine; Visit Provider Internal Medicine
DX: N40.1 Benign prostatic hyperplasia with lower urinary tract symptoms (principal); N13.8 Other obstructive and reflux uropathy

== ENCOUNTER → 2024-12-12 09:19 | Outpatient (BNVA) | payer MEDICARE, SELFPAY | PROVIDERS: PCP Internal Medicine; Visit Provider Internal Medicine | DX: N40.1 Benign prostatic hyperplasia with lower urinary tract symptoms (principal); N13.8 Other obstructive and reflux uropathy | CPT/HCPCS: 99212 ==

== ENCOUNTER 2025-02-19 13:41 | Outpatient (AMB) | payer MEDICARE, SELFPAY ==
--- NOTE | 2025-02-19 13:45 | MHC.OFFVIS ---
Intake Visit Reasons: BPH Intake Note: Patient is present for BPH Urology Medication:FINASTERIDE Antibiotic Allergy:NONE Blood Thinner:APIXABAN Surveillance Dual Rate Officer Required: No Allergies No Known Allergies Allergy (Verified 02/19/25 13:45) HPI Comments Details: Mohsen is a pleasant male. He is a patient of Dr Joe. He is here for the following - lower urinary tract symptoms Six-month follow-up PVR 0 On finasteride Prior Cystoscopy trilobar hypertrophy Bladder US 03/05 80 cc prostate RAFA normal 2022 Does get up 2-3 times at night. He will try to limit fluid intake after supper. Lower urinary tract symptoms Improvement with terazosin to 1-2 times per night nocturia Initial symptoms nocturia 3-4 times per night Occasional urgency frequency Prior treatments - tamsulosin which made him dizzy Current symptoms - nocturia, weakness of stream, PVR 01/30 25cc PSA 05/31 3.6, 12/03 2.2 Cystoscopy 05/02 - trilobar hypertrophy, 04/04 Therapeutic plan -would encourage GreenLight laser [facility] Medical History Pre-op exam Cerumen impaction Dizzy spells Right inguinal hernia Urinary tract infection Other obstructive and reflux uropathy Polymyalgia rheumatica RBBB HTN (hypertension) Hyperlipidemia CAD (coronary artery disease) Surgical History History of colonoscopy Stented coronary artery Hx of cardiac cath Family History Father CVD (cardiovascular disease) Mother CVD (cardiovascular disease) Social History Household Members: None Housing: House Are you a primary home care consultant to a significant other at home: No Do you presently have visiting nurse or other home services: No Alcohol intake: never Comment: aware of trip hazard Patient Tobacco Use Status: Never used Tobacco Tobacco use type: Cigarette e-Cigarette/Vaping Use: Never Used Second Hand Smoke Exposure: No service: No Current occupational status: retired Current occupational exposures/hazards: No Cognitive needs: No Hearing needs: Yes Vision needs: Yes Review of Systems Const Denies chills and Denies fever(s) Card Reports no additional complaints and Denies syncope Resp Denies cough GI Denies abdominal pain and Denies heartburn Reports as per HPI and Denies change in libido Neuro Denies syncope Psych Denies change in libido Endo Denies change in libido Physical Exam Const General: cooperative, healthy appearing, comfortable and no acute distress Orientation/consciousness: patient oriented x3 HEENT Face and sinus: Yes normal facial exam Mouth: moist mucous membranes Neck Neck: Yes normal visual inspection, Yes full ROM and Yes trachea midline Chest Chest palpation & inspection: normal inspection of the chest Resp Effort & Inspection: normal respiratory effort, able to speak in complete sentences and no respiratory distress GI Inspection: Yes normal to inspection Back/Spine/Pelvis Cervical Spine: normal cervical lordosis Thoracic/Lumbar Spine: thoracic and lumbar spine normal to inspection Skin General skin exam: no rashes or lesions noted Neuro General: patient oriented x3, gait normal, tone normal and moves all extremities Extrem General: Yes normal to inspection and Yes capillary refill normal Assessment & Plan Assessment & Plan (1) BPH w urinary obs/LUTS: Code(s): N40.1 - Benign prostatic hyperplasia with lower urinary tract symptoms; N13.8 - Other obstructive and reflux uropathy Category: Medical (2) Nocturia more than twice per night: Code(s): R35.1 - Nocturia Category: Medical Plan Continue finasteride Six-month follow-up PVR Work on reducing fluid intake Patient Instructions: This note is constructed using voice recognition software. While every effort has been made to ensure accuracy dot compliance coordinator errors may have been included. Imaging studies, laboratory and physical exam results were discussed and reviewed in detail. No major barriers to patient understanding were identified. An opportunity to ask questions regarding the treatment plan was provided. All questions were answered. The patient expressed understanding and agreement with the above treatment plan. The patient is aware they should contact our office by phone for worsening of their current condition or the appearance of new urologic symptoms. Compliance is encouraged with any medications and followup testing that is ordered. It is a privilege to participate in the urologic care of your patient. If you have any questions or concerns regarding treatment for the above conditions, or other urologic issues, please do not hesitate to contact me. The office telephone contact is [phone]. Sincerely, Dr Fidencio Rhodes MD, [facility] - Urology Compassionate Specialist Care for the Genitourinary System Coding Level of Care Code Est Pt Level 3 (88622) Complex EM visit Add On G2211 Diagnoses BPH w urinary obs/LUTS N40.1; N13.8 Nocturia more than twice per night R35.1
--- OUTSIDE RECORDS SUMMARY | 2025-02-19 16:34 | XMS_ITS | Patient Health Record ---
[facility] Address [address] [place] [address] Care Team Providers Care Associate Music Professor Name Role Phone Heath RILEY, Rikki Primary Care Provider Unavaila raheem Black, Alice Unavailable [phone] Reason For Referral No Information Plan Of Treatment No Information Insurance Providers Payer Name Payer Address Payer Phone Subscriber Number Group Number Insured Name Patient Relationship to Insured Coverage Start Date Coverage End Date Medicare National [employer] [address] [place] [address] Mohsen Naylor Self - patient is the insured [employer] [address] [place] [address] [phone] Mohsen Naylor Self - patient is the insured
--- OUTSIDE RECORDS SUMMARY | 2025-02-19 16:34 | XMS_ITS ---
Author Organization [facility] Address [address] [place] [id number] Care Team Providers Care Adventure Challenge Instructor Name Role Phone Heath RILEY, Rikki Primary Care Provider Unavaila Alice Rodriguez [phone] REASON FOR VISIT no ppwrk Encounters Encounter Location Date Provider Diagnosis [facility] [address] [place] [address] 09/29/2024 Alice Diez Plan Of Treatment No Information Progress Notes * Mohsen NAYLOR ADOB: [birth year] (79 yo M)Acc No.[id number]:09/29/2024 Progress Notes Patient:?Mohsen NAYLOR Provider:?Alice Diez DPM :1945???Age:79 Y???Sex:Male Ari e:09/29/2024 Address:[address] [place], [place] [id number] Pcp:Rikki Joe MD Subjective: * Chief Complaints: [...] Diez DPM Date:?2023 Generated for Brigette ball/[place]/eTransmitting on:?02/19/2025 04:34 PM EDT
== END 2025-02-19 14:14 | disposition home or self-care (01) ==
LOC: HO.HUSH 13:42
PROVIDERS: PCP Internal Medicine; Visit Provider Urology
DX: N40.1 Benign prostatic hyperplasia with lower urinary tract symptoms (principal); N13.8 Other obstructive and reflux uropathy; R35.1 Nocturia
CPT/HCPCS: 99213; G2211

== ENCOUNTER → 2025-02-19 13:41 | Outpatient (BNVA) | payer MEDICARE, SELFPAY | PROVIDERS: PCP Internal Medicine; Visit Provider Urology | DX: N40.1 Benign prostatic hyperplasia with lower urinary tract symptoms (principal); N13.8 Other obstructive and reflux uropathy; R35.1 Nocturia | CPT/HCPCS: 99212 ==

== ENCOUNTER 2025-06-10 13:52 | Outpatient (AMB) | payer MEDICARE, SELFPAY ==
[2025-06-10 13:56] VITALS: BP 146/74; PULSE 68; RESP 18; TEMP 36.3; O2SAT 96; BMI 25.9
--- NOTE | 2025-06-10 13:56 | A.OFFPC_ITS ---
Vital Signs 06/10/25 13:56 Height 5 ft 6 in Weight 160 lb 4 oz BMI 25.9 BP 146/74 H Blood Pressure Location Lt brachial Position Sitting Respiration 18 Pulse 68 Pulse Source Pulse Oximeter Temp 97.3 F Temp Source Temporal Artery Scan Pulse Oximetry (%) 96 Oxygen Delivery Method Room Air Intake Visit Reasons: MARKOS Dr Joe Allergies No Known Allergies Allergy (Verified 06/10/25 13:59) Medication List - Last Reconciled 06/10/25 by Brittani Vila MD apixaban (Eliquis) 5 mg PO BID atorvastatin 40 mg PO DAILY calcium carbonate-vitamin D3 600 mg-10 mcg (400 unit) (Calcium with Vitamin D) 1 tab PO BID carvedilol 12.5 mg PO BID clopidogrel 75 mg PO DAILY finasteride 5 mg PO DAILY walker Folding Front wheeled walker Tobacco use date assessed: 06/10/25 Fall risk assessment: No Falls in past year Last assessed Fall Risk: 06/10/25 Dental Screening Dental Screen Date: 06/10/25 Did you have a dental visit in the last 12 months?: Yes Did you have a dental problem in the last 6 months where you did not have access to dental care?: No Was dental information given to patient?: Patient has dentist [facility] Medical History (Updated 06/10/25 @ 14:39 by Brittani Vila MD) Other obstructive and reflux uropathy Nocturia more than twice per night Weak urinary stream Screening for diabetes mellitus Abnormal stress test HTN (hypertension) Pre-op exam Cerumen impaction Dizzy spells Right inguinal hernia Urinary tract infection Polymyalgia rheumatica RBBB Hyperlipidemia CAD (coronary artery disease) Surgical History (Updated 06/10/25 @ 14:32 by Brittani Vila MD) S/P cardiac cath Stented coronary artery History of colonoscopy Hx of cardiac cath Family History Father CVD (cardiovascular disease) Mother CVD (cardiovascular disease) Social History Household Members: None Housing: House Are you a primary childcare provider to a significant other at home: No Do you presently have visiting nurse or other home services: No Alcohol intake: never Comment: aware of trip hazard Patient Tobacco Use Status: Never used Tobacco Tobacco use type: Cigarette e-Cigarette/Vaping Use: Never Used Second Hand Smoke Exposure: No service: No Current occupational status: retired Current occupational exposures/hazards: No Cognitive needs: No Hearing needs: No Vision needs: Yes Questionnaire PHQ-9 Over the last 2 weeks, how often have you been bothered by any of the following problems? 1. Little interest or pleasure in doing things: not at all 2. Feeling down, depressed, or hopeless: not at all 3. Trouble falling or staying asleep, or sleeping too much: several days 4. Feeling tired or having little energy: not at all 5. Poor appetite or overeating: not at all 6. Feeling bad about yourself - or that you are a failure or have let yourself or your family down: not at all 7. Trouble concentrating on things, such as reading the newspaper or watching television: not at all 8. Moving or speaking so slowly that other people could have noticed. Or the opposite - being so fidgety or restless that you have been moving around a lot more than usual: not at all 9. Thoughts that you would be better off or of hurting yourself in some way: not at all Total score: 1 Source: Developed by Drs. Juan Carlos Finch, Heike Roberson, Justin pedraza nd colleagues, with an educational suzanne from [employer] Thrive Questionnaire Date Thrive assessed: 12/12/24 I am a: Patient What is your living situation today?: I have a steady place to live Within the past 12 months, did the food you bought not last and you didn't have the money to get more?: Never true Within the past 12 months, did you worry whether your food would run out before you got money to buy more?: Never true Do you have trouble paying for medicines?: No Do you have trouble getting transportation to medical appointments?: No Do you have trouble paying your heating and electricity bill?: No Do you have trouble taking care of your child, family member or friend?: No Do you have trouble with day-to-day activities such as bathing, preparing meals, shopping, managing finances, etc.?: No Are you currently unemployed and looking for a job?: No Are you interested in more education?: No Please select the resources that you would like help with: None Currently or been in a relationship where the following occur: No concerns reported THRIVE Score: 0 AUDIT C Alcohol Use Questionnaire (AUDIT-C) 1. How often do you have a drink containing alcohol?: Never 3. How often do you have six or more drinks on one occasion?: Never Total Score: 0 ROBE-7 AMB Questionnaire ROBE-7 Date ROBE - 7 assessed: 12/12/24 Feeling nervous, anxious, or on edge: 0 = Not at all Not being able to stop or control worryin = Not at all Worrying too much about different things: 0 = Not at all Trouble relaxin = Not at all Being so restless that it is hard to sit still: 0 = Not at all Becoming easily annoyed or irritable: 0 = Not at all Feeling afraid as if something awful might happen: 0 = Not at all Total ROBE-7 score (0-4 normal; 5-9 mild; 10-14 moderate; 15-21 severe): 0 Source: Developed by Drs. Juan Carlos Finch, Heike Roberson, Justin Rene and colleagues, with an educational suzanne from [employer] Physical exam (Primary Care) Vital Signs: Last Vital Signs Temp 97.3 F 06/10/25 13:56 Pulse 68 06/10/25 13:56 Resp 18 06/10/25 13:56 BP 146/74 H 06/10/25 13:56 Pulse Ox 96 06/10/25 13:56 Oxygen Delivery Method Room Air 06/10/25 13:56 BMI result Body Mass Index 25.9 Tobacco/Smoking Status: Tobacco use Status Tobacco use date assessed 06/10/25 06/10/25 14:01 Patient Tobacco Use Status Never used Tobacco 06/10/25 14:01 Tobacco use type Cigarette 06/10/25 14:01 e-Cigarette/Vaping Use Never Used 06/10/25 14:01 PHQ-9: PHQ-9 Score PHQ-9: Total score 1 06/10/25 14:01 Thrive Assessment: Date of Thrive Assessment Date Thrive assessed 12/12/24 06/10/25 14:01 Currently or been in a relationship where the following occur: No concerns reported Const General: alert; No acute distress Eyes Conjunctivae: conjunctivae normal Resp Auscultation: clear to auscultation bilaterally Cardio Rate: regular rate Rhythm: regular rhythm GI Inspection: Yes normal to inspection Extrem General: Yes normal to inspection and No edema Coding Level of Care Code Est Pt Level 4 (37249) Complex EM visit Add On G2211 Diagnoses Hypertension I10 CAD (coronary artery disease) I25.10 Paroxysmal atrial fibrillation I48.0 Hyperlipidemia E78.5 Impaired glucose tolerance R73.02 BPH w urinary obs/LUTS N40.1; N13.8 Primary osteoarthritis of left knee M17.12 Osteoarthritis type: primary Assessment & Plan Assessment & Plan (1) Hypertension: Code(s): I10 - Essential (primary) hypertension Category: Medical Plan: Continue with blood pressure medication. Decrease salt intake and exercise patient is on carvedilol 12.5 mg twice a day (2) CAD (coronary artery disease): Code(s): I25.10 - Atherosclerotic heart disease of platinum coronary artery without angina pectoris Category: Medical Plan: Control the cholesterol, weight, blood pressure, patient is on anticoagulation and clopidogrel (3) Paroxysmal atrial fibrillation: Code(s): I48.0 - Paroxysmal atrial fibrillation Category: Medical Plan: Continue with anticoagulation with Eliquis and will need to monitor renal function twice a day year (4) Hyperlipidemia: Code(s): E78.5 - Hyperlipidemia, unspecified Category: Medical Plan: Avoid fried foods, chicken skin, eggs, butter margarine, pastries and meat. Be it pork or beef they have a lot of cholesterol LDL goal of less than 70 and triglyceride of less than 150 on atorvastatin 40 mg once a day (5) Impaired glucose tolerance: Code(s): R73.02 - Impaired glucose tolerance (oral) Category: Medical Plan: Decrease the amount of carbohydrate intake, pasta, bread, rice and potatoes are all sugar and that is aside from all the sweet stuff, remember that fruits are good but they are Sweet also. (6) BPH w urinary obs/LUTS: Code(s): N40.1 - Benign prostatic hyperplasia with lower urinary tract symptoms; N13.8 - Other obstructive and reflux uropathy Category: Medical Plan: Patient follows up with urology and is on finasteride (7) Osteoarthritis of left knee: Code(s): M17.12 - Unilateral primary osteoarthritis, left knee Category: Medical Qualifiers: Osteoarthritis type: primary Qualified Code(s): M17.12 - Unilateral primary osteoarthritis, left knee Plan: Keep active Plan History of Present Illness The patient is an 79-year-old male presenting for a wellness visit and management of chronic conditions. The patient has a history of hypertension, which has been noted to be high during this visit. He does not monitor his blood pressure at home and was advised to consider home monitoring. The patient has coronary artery disease and is currently on anticoagulation therapy with Eliquis and clopidogrel. There is a concern regarding the concurrent use of both medications, and a cardiology consultation is planned to address this. The patient has hypercholesterolemia, managed with atorvastatin 40 mg daily. His LDL cholesterol is well-controlled at 67 mg/dL. The patient has knee osteoarthritis, particularly affecting the left knee, which is swollen and slightly painful. He has been advised to consider orthopedic evaluation if pain becomes significant. The patient has benign prostatic hyperplasia and is on finasteride. He reports nocturia, urinating three to four times a night, and has been advised to limit fluid intake before bedtime. The patient has atrial fibrillation and is on anticoagulation therapy. Regular monitoring of renal function is recommended due to the use of Eliquis. The patient has an elevated blood glucose level of 112 mg/dL, which is above the normal range but not diagnostic of diabetes. He has been advised to reduce carbohydrate intake to manage blood glucose levels. Health Maintenance - Blood pressure monitoring recommended for hypertension management - Blood glucose monitoring advised due to elevated levels - Cholesterol management with atorvastatin, LDL goal achieved - Renal function monitoring due to anticoagulation therapy - Fluid intake management advised to reduce nocturia Social History - Exercise: Engages in regular yard work and occasional hiking - Alcohol use: Denies alcohol consumption - Tobacco use: Denies smoking history Review of Systems - Cardiovascular: Denies chest pain, reports high blood pressure - Musculoskeletal: Reports knee swelling and slight pain - Genitourinary: Reports nocturia, urinating three to four times a night - Neurological: Denies seizures - Respiratory: Denies lung problems - Gastrointestinal: Denies nausea, vomiting, and constipation Physical Exam General: Cooperative, healthy appearing, comfortable, no acute distress and well developed Orientation: Patient oriented x3 Limitations: No limitations Head: Normal to inspection Ears: Hearing grossly normal bilaterally Nose: Wound present due to shaving Face and sinus: Normal facial exam Eyes: Appearance normal, both eyes and all related structures Neck: Normal visual inspection and Yes full ROM Respiratory: Normal respiratory effort and able to speak in complete sentences. Clear to auscultation bilaterally Cardiovascular: Regular rate and rhythm. Normal S1 and S2 GI: Normal to inspection. Soft to palpation and nontender Skin: No rashes or lesions noted Neuro: Patient oriented x3 Extremities: Normal to inspection, left knee with severe osteoarthritis, right knee not bad Results - Labs: Blood glucose elevated at 112 mg/dL - Labs: LDL cholesterol at 67 mg/dL - Labs: Normal blood count, electrolytes, renal function, liver function, and thyroid function Plan The patient's hypertension will be monitored closely, with recommendations for home blood pressure monitoring to better assess trends. For coronary artery disease, the patient will continue anticoagulation therapy with Eliquis, and a cardiology consultation is planned to evaluate the necessity of concurrent clopidogrel use. Cholesterol management will continue with atorvastatin, as the patient's LDL levels are well-controlled. The patient is advised to maintain dietary modifications to manage elevated blood glucose levels, focusing on reducing carbohydrate intake. For knee osteoarthritis, the patient is advised to consider orthopedic evaluation if pain becomes significant, although current symptoms are ma nageable. Renal function will be monitored regularly due to the use of anticoagulation therapy. The patient is advised to manage fluid intake to reduce nocturia, particularly avoiding fluids before bedtime. Patient was informed and verbally consented to the use of an ambient scribe for clinic note documentation during this visit. Discussion Notes During the visit, I discussed the importance of monitoring blood pressure at home to better understand trends and manage hypertension effectively. We reviewed the patient's current medications, particularly the use of Eliquis and clopidogrel, and I recommended a cardiology consultation to evaluate the necessity of both medications. I advised the patient on dietary modifications to manage elevated blood glucose levels, emphasizing the reduction of carbohydrate intake. We also discussed the management of knee osteoarthritis and the potential need for orthopedic evaluation if symptoms worsen. I emphasized the importance of renal function monitoring due to anticoagulation therapy and advised on managing fluid intake to reduce nocturia. Patient Instructions - Monitor your blood pressure at home regularly. - Continue taking your medications as prescribed, but follow up with cardiology regarding the use of Eliquis and clopidogrel. - Maintain a healthy diet, focusing on reducing carbohydrate intake to manage blood glucose levels. - Consider seeing an configuration management specialist if knee pain becomes significant. - Limit fluid intake before bedtime to reduce nighttime urination. Orders: Orders Hemoglobin A1c Today I48.0 - Paroxysmal atrial fibrillation UA CC w/rflx Micro + Cult Today I48.0 - Paroxysmal atrial fibrillation, R30.0 - Dysuria Comprehensive Met. Panel Today I48.0 - Paroxysmal atrial fibrillation CA echo transthoracic complete Today I48.0 - Paroxysmal atrial fibrillation Referrals Cardiology Referral I48.0 - Paroxysmal atrial fibrillation
--- OUTSIDE RECORDS SUMMARY | 2025-06-10 14:34 | XMS_ITS | Patient Health Record ---
Author Organization [facility] Address [address] [place] [id number] Care Team Providers Care Sheet Manager Name Role Phone Juan Carlos Bloom [phone] Reason For Referral No Information Plan Of Treatment No Information
== END 2025-06-10 14:57 | disposition home or self-care (01) ==
LOC: HO.HMCH 13:53
PROVIDERS: PCP Internal Medicine; Visit Provider Internal Medicine
DX: I10 Essential (primary) hypertension (principal); I25.10 Atherosclerotic heart disease of native coronary artery without angina pectoris; I48.0 Paroxysmal atrial fibrillation; E78.5 Hyperlipidemia, unspecified; R73.02 Impaired glucose tolerance (oral); N40.1 Benign prostatic hyperplasia with lower urinary tract symptoms; N13.8 Other obstructive and reflux uropathy; M17.12 Unilateral primary osteoarthritis, left knee

== ENCOUNTER → 2025-06-10 13:52 | Outpatient (BNVA) | payer MEDICARE, SELFPAY | PROVIDERS: PCP Internal Medicine; Visit Provider Internal Medicine | DX: I10 Essential (primary) hypertension (principal); I25.10 Atherosclerotic heart disease of native coronary artery without angina pectoris; I48.0 Paroxysmal atrial fibrillation; E78.5 Hyperlipidemia, unspecified; R73.02 Impaired glucose tolerance (oral); N40.1 Benign prostatic hyperplasia with lower urinary tract symptoms; N13.8 Other obstructive and reflux uropathy; M17.12 Unilateral primary osteoarthritis, left knee | CPT/HCPCS: 99212 ==

== ENCOUNTER → 2025-07-28 08:54 | Outpatient (REF) | payer MEDICARE, SELFPAY ==
--- OUTSIDE RECORDS SUMMARY | 2024-09-29 04:30 | XMS_ITS ---
Author Organization [facility] Address [address] [place] [address] Care Team Providers Care Product Sales Engineer Name Role Phone Heath RILEY, Rikki Primary Care Provider Unavaila Alice Rodriguez Unavailable [phone] REASON FOR VISIT no ppwrk Encounters Encounter Location Date Provider Diagnosis [facility] [address] [place] [address] 09/29/2024 Alice Diez Plan Of Treatment No Information Progress Notes * Mohsen NAYLOR ADOB: 3 (79 yo M)Acc No.[id number]:09/29/2024 Progress Notes Patient: Mohsen PENNINGTON Provider: Otilia Diez DPM :1945 A ge:79 Y S ex:Male Date:09/29/2024 Address:[address] [place], [place] [id number] Pcp:Rikki Joe MD Subjective: * Chief Complaints: [...] Diez DPM Date: 11/29/2023 Generated for Brigette ball/[place]/eTayleensmitting on: 0 07/28/2025 10:59 AM EDT
--- NOTE | 2025-07-28 08:57 | CA_ITS ---
Transthoracic Echocardiogram Patient (Last, First, Middle): Mohsen Naylor A Gender: Male Date of : 1945 Age: 79 Procedure Date: 07/28/2025 Procedure Type: Transthoracic Echocardiogram Location: OP Height: 170. cm Weight: 72.58 kg BSA: 1.84 m2 Heart Rate: 56 bpm Network Controller: ROSALIA Referring MD: Brittani Vila MD Symptoms: I48.0 - Paroxysmal atrial fibrillation Study Quality: Adequate ECG Rhythm: Sinus Conclusions: - The left ventricular systolic function is normal. The calculated ejection fraction is 55% by biplane method. - There is moderate septal and moderate basal asymmetric hypertrophy. - No obvious valvular pathology seen on this study. Findings Left Ventricle Normal left ventricular cavity size. The left ventricular systolic function is normal. The calculated ejection fraction is 55% by biplane method. There is no evidence of regional wall motion abnormalities. Evidence suggests grade I (mild) diastolic dysfunction. There is moderate septal and moderate basal asymmetric hypertrophy. Right Ventricle Moderately increased right ventricular cavity size. There is normal right ventricular systolic function. Atria Both atria are normal in size. Aortic Valve There is a normal trileaflet aortic valve. There is mild calcification of the aortic valve. There is no aortic valve stenosis. There is no aortic valve regurgitation. Mitral Valve The mitral valve appears normal. There is mild mitral valve regurgitation. There is no mitral valve stenosis. Pulmonic Valve The pulmonic valve is likely normal. Tricuspid Valve There is trace tricuspid valve regurgitation. There is no evidence of pulmonary hypertension. Great Vessels The asc aorta is normal in size. Venous The inferior vena cava is normal in size and collapses greater than 50% with inspiration. Pericardium/Pleural There is no evidence of pericardial effusion. Prior Study Comparison No significant change compared to prior study dated: 09/22/2022. Doubt true wall motion abnormalities. Basal septal hypertrophy could give appearance of apical septum being akinetic, noted in prior report. Recommendations, Care & Conclusions No obvious valvular pathology seen on this study. Measurements 2D Linear Measurements RVIDd: 4.80 IVSd: 1.37 0.6-0.9/0.6-1.0 cm LVIDd: 4.19 3.9-5.3/4.2-5.9 cm LVIDs: 2.95 2.0-3.6 cm LVPWd: 1.08 0.7-1.1 cm LA Diam: 3.55 2.7-3.8/3.0-4.0 cm LAIDs Index: 1.93 1.5-2.3 cm/m2 LV Mass: 182.00 67-162/88-224 g LVOT Diam: 1.93 3.0+(-)1.3 cm 2D Volumes RA ESV A/L: 23.50 19-21 ML/M2 2D Systolic Function EF 4C: 55.00 >55% EF 2C: 55.00 >55% EF BiP: 55.00 >55% Mitral Valve MV Pk E: 0.63 MV PK A: 1.04 MV Decel Time: 325.00 MV IVRT: 83.00 E/A: 0.61 E'Lateral: 4.90 E'Medial: 5.00 E/E' Med: 12.61 E/E' Lat: 12.86 Aortic Valve AoV Pk Eduardo: 1.27 AoV VTI: 0.28 AoV Pk Grad: 6.50 Aov Mn Grad: 3.50 YUNIOR Cont.VTI: 2.92 LVOT LVOT VTI: 0.27 LVOT Pk Grad: 6.60 LVOT Mn Grad: 3.00 LVOT Diam: 1.93 Diastolic Function MV Pk E: 0.63 MV Pk A: 1.04 E/A: 0.61 E'Medial: 5.00 E/E' Med: 12.61 E' Laterial: 4.90 E/E' Lat: 12.86 Right Ventricle TAPSE (mm): 18.60 TVS' Eduardo: 10.50 Tricuspid Valve TR Pk Eduardo: 1.32 TR Pk Grad: 7.00 RA Press: 3.00 RVSP: 10.00 Great Vessels Aorta Sinus of Valsalva: 3.97 2.0-3.5 cm Ao Asc: 3.89 2.1-3.4 cm Pulmonary Valve Peak PV Grad: 5.20 PV Mn Grad: 2.60 Updated in Other Vendor System with Status of Final Ubaldo Kim MD electronically signed on 07/30/2025 11:44:19 AM with status of Final
--- OUTSIDE RECORDS SUMMARY | 2025-07-28 10:59 | XMS_ITS | Patient Health Record ---
Author Organization [facility] Address [address] [place] [id number] Care Team Providers Care Clinical Project Leader Name Role Phone Juan Carlos Bloom [phone] Reason For Referral No Information Plan Of Treatment No Information
--- OUTSIDE RECORDS SUMMARY | 2025-07-28 10:59 | XMS_ITS | Patient Health Record ---
[facility] Address [address] [place] [address] Care Team Providers Care Communications Executive Name Role Phone Heath RILEY, Rikki Primary Care Provider Unavaila raheem Black, Alice Unavailable [phone] Reason For Referral No Information Plan Of Treatment No Information Insurance Providers Payer Name Payer Address Payer Phone Subscriber Number Group Number Insured Name Patient Relationship to Insured Coverage Start Date Coverage End Date Medicare National [employer] [address] [place] [address] Mohsen Naylor Self - patient is the insured [employer] [address] [place] [address] [phone] Mohsen Naylor Self - patient is the insured
== END ==
LOC: HO.CARD 08:54
PROVIDERS: PCP Internal Medicine; Visit Provider Internal Medicine
DX: I48.0 Paroxysmal atrial fibrillation (principal)
CPT/HCPCS: 93306

== ENCOUNTER → 2025-07-28 08:57 | Outpatient (BNV) | payer MEDICARE, SELFPAY | PROVIDERS: PCP Internal Medicine; Visit Provider Internal Medicine | DX: I42.2 Other hypertrophic cardiomyopathy (principal) | CPT/HCPCS: 93306 ==

== ENCOUNTER 2025-08-17 13:10 | Outpatient (AMB) | payer MEDICARE, SELFPAY ==
--- OUTSIDE RECORDS SUMMARY | 2024-09-29 04:30 | XMS_ITS ---
Author Organization [facility] Address [address] [place] [address] Care Team Providers Care Assistant Professor Of Chemistry Name Role Phone Heath RILEY, Rikki Primary Care Provider Unavaila Alice Rodriguez Unavailable [phone] REASON FOR VISIT no ppwrk Encounters Encounter Location Date Provider Diagnosis [facility] [address] [place] [address] 09/29/2024 Alice Diez Plan Of Treatment No Information Progress Notes * Mohsen NAYLOR ADOB: 3 (79 yo M)Acc No.[id number]:09/29/2024 Progress Notes Patient: Mohsen PENNINGTON Provider: Otilia Diez DPM :1945 A ge:79 Y S ex:Male Date:09/29/2024 Address:[address] [place], [place] [phone] Pcp:Rikki Joe MD Subjective: * Chief Complaints: [...] Date: 11/29/2023 Generated for Brigette ball/[place]/Nikkoitting on: 03:36 PM EDT
--- NOTE | 2025-08-17 13:29 | A.OFFVIS_ITS ---
Vital Signs 08/17/25 13:34 Height 5 ft 6 in Weight 156 lb 8.451 oz BMI 25.3 BP 130/68 Blood Pressure Location Lt brachial Position Sitting Pulse 57 Intake Visit Reasons: Paroxysmal atrial fibrillation/follow up per PCP Intake Note: Follow-up dx afib with ekg per pcp Medical Technicians Required: No Allergies No Known Allergies Allergy (Verified 06/10/25 13:59) Medication List - Last Reconciled 08/17/25 by Fletcher White MD apixaban (Eliquis) 5 mg PO BID atorvastatin 40 mg PO DAILY calcium carbonate-vitamin D3 600 mg-10 mcg (400 unit) (Calcium with Vitamin D) 1 tab PO BID carvedilol 12.5 mg PO BID clopidogrel 75 mg PO DAILY finasteride 5 mg PO DAILY walker Folding Front wheeled walker HPI Comments Details: Mohsen comes for follow-up after a very long gap. Unclear as to why. He is still remains on dual therapy with clopidogrel as well as Eliquis therapy. He has not had any recurrent cardiac symptoms. Denies any pain. He said he had remains pretty active. Denies any symptoms of prolonged palpitation irregular heartbeat or fast heart rate. Occasional dizziness but no clear lightheadedness or syncopal episodes. Denies any exertional shortness of breath, orthopnea, PND, leg edema. Takes all his medications. No bleeding issues. [facility] Medical History (Updated 08/17/25 @ 14:07 by Fletcher White MD) RBBB Other obstructive and reflux uropathy Nocturia more than twice per night Weak urinary stream Screening for diabetes mellitus Abnormal stress test HTN (hypertension) Pre-op exam Cerumen impaction Dizzy spells Right inguinal hernia Urinary tract infection Polymyalgia rheumatica Hyperlipidemia CAD (coronary artery disease) Surgical History S/P cardiac cath Stented coronary artery History of colonoscopy Hx of cardiac cath Family History Father CVD (cardiovascular disease) Mother CVD (cardiovascular disease) Social History Household Members: None Housing: House Are you a primary day care assistant to a significant other at home: No Do you presently have visiting nurse or other home services: No Alcohol intake: never Comment: aware of trip hazard Patient Tobacco Use Status: Never used Tobacco Tobacco use type: Cigarette e-Cigarette/Vaping Use: Never Used Second Hand Smoke Exposure: No service: No Current occupational status: retired Current occupational exposures/hazards: No Cognitive needs: No Hearing needs: No Vision needs: Yes Review of Systems Const Denies chills, Denies fatigue, Denies fever(s), Denies frequent falls, Denies weakness, Denies weight gain and Denies weight loss ENT Denies dizziness Card Denies chest pain, Denies leg edema, Denies lightheadedness, Denies palpitations, Denies dyspnea, Denies dyspnea on exertion, Denies orthopnea and Denies other (loss of consciousness) Resp Denies cough, Denies dyspnea and Denies dyspnea on exertion GI Denies hematochezia and Denies change in stool character Musc Denies abnormal gait, Denies muscle weakness, Denies numbness, Denies radiating pain into limb and Denies tingling Neuro Denies abnormal gait, Denies dizziness, Denies frequent falls, Denies numbness, Denies tingling and Denies weakness Endo Denies fatigue and Denies palpitations Physical Exam Vital Signs: Last Vital Signs Pulse 57 08/17/25 13:34 BP 130/68 08/17/25 13:34 BMI result Body Mass Index 25.3 Const General: cooperative, healthy appearing, comfortable, no acute distress, alert and awake Nutritional Appearance: average body habitus and well nourished Orientation/consciousness: patient oriented x3 Limitations: physical limitations and other limitations ( Altered gait due to arthritis) HEENT Head: Yes normal to inspection, Yes normocephalic and Yes atraumatic Eyes General: appearance normal, both eyes and all related structures Neck Neck: Yes full ROM, Yes trachea midline and Yes no JVD Carotids: other ( no carotid bruits) Chest Chest palpation & inspection: normal inspection of the chest Resp Effort & Inspection: normal respiratory effort Auscultation: clear to auscultation bilaterally Cardio Jugular venous distension: no JVD Palpation: normal PMI Rate: regular rate Rhythm: regular rhythm Heart sounds: S1 normal heart sound present, S2 normal heart sound present and Other heart sounds present ( soft S4) Peripheral pulses: Peripheral pulses 2+ throughout GI Inspection: Yes normal to inspection Auscultation: normal bowel sounds Skin General skin exam: no rashes or lesions noted, elasticity normal and turgor normal Neuro General: patient oriented x3 and no focal motor deficits Extrem General: Yes no clubbing, cyanosis or edema Psych Appearance: grossly normal Office Procedures EKG Details: EKG shows normal sinus rhythm with right bundle and left anterior fascicular block consistent with bifascicular block with anteroseptal QS pattern [id number], Complete Assessment & Plan Assessment & Plan (1) CAD (coronary artery disease): Code(s): I25.10 - Atherosclerotic heart disease of [place] coronary artery without angina pectoris Category: Medical Plan: CAD with prior STEMI and then subsequently in August undergoing complex stenting of the LAD into diagonal branch. Continues to remain on Plavix therapy for about 2 years. This can be now discontinued as this can lead to increase bleeding risk for this elderly gentleman. This was discussed with him. Continue high-intensity statin therapy. Last LDL at 67 mg/dL. Advise annual lipid check. Continue aggressive blood pressure control which is currently well optimized. Encouraged to maintain activity level as tolerated. Currently on full oral anticoagulation Eliquis and will continue the same. (2) Paroxysmal atrial fibrillation: Code(s): I48.0 - Paroxysmal atrial fibrillation Category: Medical Plan: Paroxysmal atrial fibrillation without any obvious recurrence at this point time. Continue to monitor clinically. Advised to call me with any new symptoms. Continue carvedilol therapy. Avoidance of stimulants was discussed. Continue full oral anticoagulation, currently on Eliquis 5 mg b.i.d.. Semi annual renal function test should be pursued through your office. 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 Mi progression of his conduction system disease. He has no significant symptoms that would require pacing therapy. Continue monitor annually by EKG. Will follow up in the clinic in 1 year's time, sooner PRN. Thank you for allowing me to partake in his care Orders: Orders CA echo transthoracic complete 1 Year I48.0 - Paroxysmal atrial fibrillation Medications: Discontinued clopidogrel Discontinued Reason: No Longer Medically Relevant 75 mg PO DAILY 90 tabs 0RF Coding Level of Care Code Est Pt Level 4 (11062) Complex EM visit Add On G2211 Diagnoses CAD (coronary artery disease) I25.10 Paroxysmal atrial fibrillation I48.0 Bifascicular block I45.2 CPT Codes EKG - CPT: 17536-[id number], Complete ([id number])
[2025-08-17 13:34] VITALS: BP 130/68; PULSE 57; BMI 25.3
--- OUTSIDE RECORDS SUMMARY | 2025-08-17 15:36 | XMS_ITS | Patient Health Record ---
[facility] Address [address] [place] [address] Care Team Providers Care Bus Girl Name Role Phone Heath RILEY, Rikki Primary Care Provider Unavaila raheem Black, Alice Unavailable [phone] Reason For Referral No Information Plan Of Treatment No Information Insurance Providers Payer Name Payer Address Payer Phone Subscriber Number Group Number Insured Name Patient Relationship to Insured Coverage Start Date Coverage End Date Medicare National [employer] [address] [place] [address] Mohsen Naylor Self - patient is the insured [employer] [address] [place] [address] Mohsen Naylor Self - patient is the insured
--- OUTSIDE RECORDS SUMMARY | 2025-08-17 15:36 | XMS_ITS | Patient Health Record ---
Author Organization [facility] Address [address] [place] [id number] Care Team Providers Care Health Safety Engineer Name Role Phone Juan Carlos Bloom [phone] Reason For Referral No Information Plan Of Treatment No Information
== END 2025-08-17 13:53 | disposition home or self-care (01) ==
LOC: HO.HCS 13:10
PROVIDERS: PCP Internal Medicine; Visit Provider Internal Medicine Cardiovascular Disease
DX: I25.10 Atherosclerotic heart disease of native coronary artery without angina pectoris (principal); I48.0 Paroxysmal atrial fibrillation; I45.2 Bifascicular block
CPT/HCPCS: 93010; 99214; G2211

== ENCOUNTER → 2025-08-17 13:10 | Outpatient (BNVA) | payer MEDICARE, SELFPAY | PROVIDERS: PCP Internal Medicine; Visit Provider Internal Medicine Cardiovascular Disease | DX: I25.10 Atherosclerotic heart disease of native coronary artery without angina pectoris (principal); I48.0 Paroxysmal atrial fibrillation; I45.2 Bifascicular block; R00.1 Bradycardia, unspecified; R94.31 Abnormal electrocardiogram [ECG] [EKG] | CPT/HCPCS: 93005; 99212 ==

== ENCOUNTER 2025-08-20 11:20 | Outpatient (AMB) | payer MEDICARE, SELFPAY ==
--- NOTE | 2025-08-20 11:24 | A.OFFVIS_ITS ---
Intake Visit Reasons: 6m/PVR Intake Note: Patient is present for 6 mo follow up for BPH Urology Medication:FINASTERIDE Antibiotic Allergy:NONE Blood Thinner:APIXABAN, [place] Bottom Maker Required: No Accompanied by: Self / Same As Patient Allergies No Known Allergies Allergy (Verified 06/10/25 13:59) HPI Comments Details: Mohsen is a pleasant male. He is a patient of Dr Joe. He is here for the following - lower urinary tract symptoms Six-month follow-up PVR 90 cc Continues with finasteride Prior Cystoscopy trilobar hypertrophy Bladder US 03/05 80 cc prostate RAFA normal 2022 12 month follow-up PSA Lower urinary tract symptoms Improvement with terazosin to 1-2 times per night nocturia Initial symptoms nocturia 3-4 times per night Occasional urgency frequency Prior treatments - tamsulosin which made him dizzy Current symptoms - nocturia, weakness of stream, PVR 01/30 25cc PSA 05/31 3.6, 12/03 2.2 Cystoscopy 05/02 - trilobar hypertrophy, 04/04 Therapeutic plan -would encourage GreenLight laser [facility] Medical History (Updated 08/20/25 @ 11:48 by Fidencio Rhodes MD) Nocturia more than twice per night RBBB Other obstructive and reflux uropathy Weak urinary stream Screening for diabetes mellitus Abnormal stress test HTN (hypertension) Pre-op exam Cerumen impaction Dizzy spells Right inguinal hernia Urinary tract infection Polymyalgia rheumatica Hyperlipidemia CAD (coronary artery disease) Surgical History S/P cardiac cath Stented coronary artery History of colonoscopy Hx of cardiac cath Family History Father CVD (cardiovascular disease) Mother CVD (cardiovascular disease) Social History Household Members: None Housing: House Are you a primary director of primary care to a significant other at home: No Do you presently have visiting nurse or other home services: No Alcohol intake: never Comment: aware of trip hazard Patient Tobacco Use Status: Never used Tobacco Tobacco use type: Cigarette e-Cigarette/Vaping Use: Never Used Second Hand Smoke Exposure: No service: No Current occupational status: retired Current occupational exposures/hazards: No Cognitive needs: No Hearing needs: No Vision needs: Yes Assessment & Plan Assessment & Plan (1) BPH w urinary obs/LUTS: Code(s): N40.1 - Benign prostatic hyperplasia with lower urinary tract symptoms; N13.8 - Other obstructive and reflux uropathy Category: Medical (2) Nocturia more than twice per night: Code(s): R35.1 - Nocturia Category: Medical Plan We discussed the nature of the decision and reasonable options for performing a prostate intervention. Interventions include TURP, GreenLight laser enucleation of the prostate, GreenLight laser ablation of the prostate, transurethral incision of the prostat e, and I-Tend prostate procedure. Options such as medical therapy were discussed. The relative uncertainties and benefits related to each alternate procedure were adequately discussed. General surgical risks including, but not limited to, pain, bleeding, infection, myocardial infarction, pulmonary embolus, deep vein thrombosis and cerebrovascular accident which may result in further hospitalizat ion were discussed. Full disclosure of the procedure as well as all major risks, benefits and complications were discussed including but not limited to damage to the urethra or bladder neck, recurrent BPH, retrograde ejaculation, bladder infection, urge, de gagandeep frequency, incomplete emptying, dysuria, remote chance of erectile dysfunction, epididymitis, and meatal stenosis. The success rate of the procedure was discussed. Success of the procedure in the short-term does not necessarily guarantee that long-term success will be maintained. Suitable follow up will need to be maintained. The patient showed understanding of discussion. An opportunity was provided for questions to be answered and wishes to proceed with the following procedure. - GreenLight laser Patient Instructions: This note is constructed using voice recognition software. While every effort has been made to ensure accuracy department secretary errors may have been included. Imaging studies, laboratory and physical exam results were discussed and reviewed in detail. No major barriers to patient understanding were identified. An opportunity to ask questions regarding the treatment plan was provided. All questions were answered. The patient expressed understanding and agreement with the above treatment plan. The patient is aware they should contact our office by phone for worsening of their current condition or the appearance of new urologic symptoms. Compliance is encouraged with any medications and followup testing that is ordered. It is a privilege to participate in the urologic care of your patient. If you have any questions or concerns regarding treatment for the above conditions, or other urologic issues, please do not hesitate to contact me. The office telephone contact is [phone]. Sincerely, Dr Fidencio Rhodes MD, [facility] - Urology Compassionate Specialist Care for the Genitourinary System Coding Level of Care Code Est Pt Level 4 (15552) Diagnoses BPH w urinary obs/LUTS N40.1; N13.8 Nocturia more than twice per night R35.1
== END 2025-08-20 12:01 | disposition home or self-care (01) ==
LOC: HO.HUSH 11:22
PROVIDERS: PCP Internal Medicine; Visit Provider Urology
DX: N40.1 Benign prostatic hyperplasia with lower urinary tract symptoms (principal); N13.8 Other obstructive and reflux uropathy; R35.1 Nocturia
CPT/HCPCS: 99214

== ENCOUNTER → 2025-08-20 11:20 | Outpatient (BNVA) | payer MEDICARE, SELFPAY | PROVIDERS: PCP Internal Medicine; Visit Provider Urology | DX: N40.1 Benign prostatic hyperplasia with lower urinary tract symptoms (principal); N13.8 Other obstructive and reflux uropathy; R35.1 Nocturia | CPT/HCPCS: 99212 ==

== ENCOUNTER 2025-08-28 09:09 | Emergency (ER) | payer MEDICARE, SELFPAY ==
--- OUTSIDE RECORDS SUMMARY | 2024-09-29 04:30 | XMS_ITS ---
Author Organization [facility] Address [address] [place] [address] Care Team Providers Care Electrical Troubleshooter Name Role Phone Heath RILEY, Rikki Primary Care Provider Unavaila Alice Rodriguez Unavailable [phone] REASON FOR VISIT no ppwrk Encounters Encounter Location Date Provider Diagnosis [facility] [address] [place] [address] 09/29/2024 Alice Diez Plan Of Treatment No Information Progress Notes * Mohsen NAYLOR ADOB: 3 (79 yo M)Acc No.[id number]:09/29/2024 Progress Notes Patient: Mohsen PENNINGTON Provider: Otilia Diez DPM :1945 A ge:79 Y S ex:Male Date:09/29/2024 Address:[address] [place], [place] [id number] Pcp:Rikki Joe MD Subjective: * Chief Complaints: [...] Date: 11/29/2023 Generated for Brigette ball/[place]/Nikkoitting on: 11:30 AM EDT
--- NOTE | ~2025-08-28 | XR_ITS ---
EXAMINATION: XR KNEE, LEFT CLINICAL INFORMATION: swelling/pain COMPARISON: 03/22/2023 TECHNIQUE: Two views of the left knee. FINDINGS: No fracture, dislocation, or suspicious bone lesion. Severe medial compartment osteoarthrosis is present with danw-ip-[id number] appearance, subchondral sclerosis, irregularity, and large marginal osteophytic spurs. There is widening of the lateral compartment with resultant varus angulation of the knee joint. Moderate to severe osteoarthrosis present in the patellofemoral joint, and milder changes in the lateral compartment. There is subtle chondrocalcinosis present. There is a large suprapatellar joint effusion with calcifications suggesting calcific bursitis. No soft tissue abnormalities. XR/XR knee LT 2V IMPRESSION: 1. Osteoarthrosis, severe in the medial compartment with [id number] appearance and varus angulation of the joint. 2. Chondrocalcinosis, suggesting CPPD. 3. Significant suprapatellar joint effusion with calcifications, suggesting calcific bursitis. Electronically signed by: Checo Pelaez MD 08/28/2025 09:50 AM EDT
--- NOTE | ~2025-08-28 | XR_ITS ---
CLINICAL HISTORY: lt thumb pain Radiographs of the left hand, 3 views Comparison: None available Findings: No fracture or dislocation. Severe degenerative change of the 1st carpometacarpal joint. Otherwise ryck-mk-ronmnkae degenerative change. Soft tissue swelling. Impression: No fracture. Severe degenerative change. This document has been electronically signed by: Reema Carias MD on 08/29/2025 15:09:46
--- NOTE | ~2025-08-28 | US_ITS ---
EXAMINATION: US LOWER EXTREMITY VEINS LIMITED LEFT HISTORY: pain, swelling COMPARISON: There are no prior studies available for comparison. TECHNIQUE: Duplex and color Doppler sonographic examination of the deep venous system of the left lower extremity was performed. FINDINGS: The common femoral, superficial femoral, and popliteal veins are patent demonstrating normal compressibility, spontaneous flow, and augmentation. There is a normal color and spectral Doppler waveform appearance of the visualized deep venous system above the knee. The posterior tibial and peroneal veins are patent. Incidental note is made of a 4.3 x 2.4 x 3.6 cm fluid collection in the popliteal fossa compatible with a Walden's cyst. Fluid is also seen anterior to the knee. US/US venous duplex LE LT IMPRESSION: No evidence of acute DVT in the left lower extremity. Electronically signed by: Juan Carlos Segura MD 08/28/2025 11:25 AM EDT
[2025-08-28 09:18] VITALS: BP 147/68; PULSE 82; RESP 16; TEMP 36.9; O2SAT 97; BMI 28.3
--- NOTE | 2025-08-28 09:38 | ED.EXTPRO ---
HPI - Extremity Problem General Chief complaint: Extremity Problem Stated complaint: LT KNEE AND LE PAIN X 12 HRS PER EMS Time Seen by Provider: 08/28/25 13:43 Source: patient, EMS and old records reviewed Mode of arrival: EMS Limitations: no limitations History of Present Illness ED Provider: DEANGELO MENG Narrative: 79 yo male from home with PMH of cognitive decline, PAF on eliquis, arthritis, HTN, CAD, HLD, PMR has chronic L knee pain and intermittent swelling. Notes the past month has been worse. He has no rash, trauma, fevers. He states the swelling and pain worsened last night and he couldn't sleep all night. He denies any rash and has not had his knee aspirated before. MD Complaint: joint swelling and joint pain Onset (ago): month(s) (1) Pain Consistency: constant Location: left and knee Quality: crushing and constant Radiation: none Relieving factors: immobilization Exacerbating factors: range of motion, weight bearing, walking and palpation Associated symptoms: denies other symptoms Context: other Related Data Home Medications ?Medication ?Instructions ?Recorded ?Confirmed calcium 600 mg (as 1 tab PO BID 08/18/20 08/28/25 carbonate)-vitamin D3 10 mcg (400 unit) tablet (Calcium with Vitamin D) atorvastatin 40 mg tablet 40 mg PO QPM 08/28/25 08/28/25 finasteride 5 mg tablet 5 mg PO QPM 08/28/25 08/28/25 Previous Rx's ?Medication ?Instructions ?Recorded walker #1 ea 08/15/23 apixaban 5 mg tablet (Eliquis) 5 mg PO BID #14 tabs 12/05/24 carvedilol 12.5 mg tablet 12.5 mg PO BID #180 tabs 04/27/25 Allergies Allergy/AdvReac Type Severity Reaction Status Date / Time No Known Allergies Allergy Verified 08/28/25 09:19 Review of Systems Review of Systems: Constitutional : No Fever, No Chills Cardiovascular : No Chest Pain, No SOB Respiratory : No Cough, No Dyspnea Gastrointestinal : No Nausea, No Vomiting, No Diarrhea, No abdominal Pain Genitourinary : No Dysuria, No Hematuria Musculoskeletal : positive joint pain, No Myalgias, pos Joint Swelling Skin : No Skin lacerations, No rash Neuro : No Weakness, No Numbness All other systems reviewed and are negative [facility] Past Medical History Attestation statement: The following information was validated with the patient. Source: old records reviewed Medical History Nocturia more than twice per night RBBB Other obstructive and reflux uropathy Weak urinary stream Screening for diabetes mellitus Abnormal stress test HTN (hypertension) Pre-op exam Cerumen impaction Dizzy spells Right inguinal hernia Urinary tract infection Polymyalgia rheumatica Hyperlipidemia CAD (coronary artery disease) Surgical History S/P cardiac cath Stented coronary artery History of colonoscopy Hx of cardiac cath Family History Family History Father CVD (cardiovascular disease) Mother CVD (cardiovascular disease) Social History Social History Household Members: None Housing: House Are you a primary personal care aid to a significant other at home: No Do you presently have visiting nurse or other home services: No Alcohol intake: never Comment: aware of trip hazard Patient Tobacco Use Status: Never used Tobacco Tobacco use type: Cigarette Smoked in Last 30 Days: No e-Cigarette/Vaping Use: Never Used Second Hand Smoke Exposure: No Advance Directives: Yes Advance Directives on File: Yes Advance Directives Date on File: 09/01/25 service: No Current occupational status: retired Current occupational exposures/hazards: No Cognitive needs: No Hearing needs: No Vision needs: Yes Physical Exam Vital Signs: Vital Signs: Last Vital Signs Temp 97.6 F 09/01/25 06:00 Pulse 60 09/01/25 08:02 Resp 16 09/01/25 06:00 BP 132/72 09/01/25 08:02 Pulse Ox 96 09/01/25 06:00 O2 Del Method Room Air 09/01/25 06:00 BMI result Body Mass Index 28.3 Appearance: Alert. Oriented X3. No acute distress. Eyes: Pupils equal, round and reactive to light. ENT: Pharynx normal. Neck: Normal inspection. Neck supple. CVS: Normal heart rate and rhythm. Pulses normal. Respiratory: No respiratory distress. Breath sounds normal. Abdomen: Soft and nontender. Skin: Skin warm and dry. Normal skin color. Normal skin turgor. Extremities: No lower extremity edema. L knee large joint effusion no rash, no warmth, distal NV intact Neuro: Oriented X 3. No motor deficit. No sensory deficit. Course Reevaluation(s) Reevaluation #1: Time: 18:01 Date: 08/30/25 Provider: MANN Dewitt Patient in physician observation for case management needs. No overnight events per nursing staff. Vital signs stable. We will continue to monitor pending PT case management disposition. Time: 08:35 Date: 08/31/25 Provider: MANN Huang Patient in physician observation for case management needs. No acute events reported overnight.? No current issues or complaints. VS stable. Patient is pending placement at facility. Will continue to monitor. Time: 08:41 Date: 09/01/25 Provider: Kirsty Heart PA-C Patient in physician observation for case management needs. No acute events reported overnight.? No current issues or complaints. VS stable. Patient still in bed search for rehab placement. Will continue to monitor as we await case management disposition. - Patient to discharge to [facility] for STR. Will continue to monitor while awaiting transportation for discharge. Medications Administered Generic Name Dose Route Start Last Admin Trade Name Freq PRN Reason Stop Dose Admin Acetaminophen 650 mg 08/28/25 14:07 09/01/25 01:25 Acetaminophen 325 Mg Tablet PO 650 mg Q6H PRN Administration Pain, Mild 1-3,fever,headache Apixaban 5 mg 08/28/25 21:00 09/01/25 08:03 Apixaban 5 Mg Tablet PO 5 mg BID CHANTEL Administration Atorvastatin Calcium 40 mg 08/28/25 21:00 08/31/25 20:37 Atorvastatin Calcium 40 Mg Tablet PO 40 mg BEDTIME CHANTEL Administration Calcium Carbonate/Cholecalciferol 250 mg 08/28/25 21:00 09/01/25 08:03 Calcium + Vitamin D 250 Mg Tablet PO 250 mg BID CHANTEL Administration Carvedilol 12.5 mg 08/28/25 21:00 09/01/25 08:02 Carvedilol 12.5 Mg Tablet PO 12.5 mg BID CHANTEL Administration Protocol Docusate Sodium 100 mg 08/28/25 14:07 09/01/25 08:03 Docusate Sodium 100 Mg Capsule PO 100 mg BID PRN Administration Constipation Finasteride 5 mg 08/28/25 21:00 08/31/25 20:38 Finasteride 5 Mg Tablet PO 5 mg BEDTIME CHANTEL Administration Oxycodone HCl 5 mg 08/28/25 14:05 09/01/25 13:47 Oxycodone Hcl Immed Release 5 Mg Tablet PO 5 mg Q6H PRN Administration Pain, Moderate(Pain Scale 4-6) Discontinued Medications Generic Name Dose Route Start Last Admin Trade Name Freq PRN Reason Stop Dose Admin Atorvastatin Calcium 40 mg 08/28/25 16:00 08/28/25 17:19 Atorvastatin Calcium 40 Mg Tablet PO Not Given DAILY CHANTEL Finasteride 5 mg 08/28/25 16:00 08/28/25 17:19 Finasteride 5 Mg Tablet PO Not Given DAILY CHANTEL Lidocaine HCl 5 ml 08/28/25 09:36 08/28/25 11:15 Lidocaine Hcl 1 % Mpf 5 Ml Vial SUBCUT 08/28/25 09:37 5 ml ONCE ONE Administration Oxycodone HCl 5 mg 08/28/25 09:29 08/28/25 09:42 Oxycodone Hcl Immed Release 5 Mg Tablet PO 08/28/25 09:30 5 mg ONCE ONE Administration Oxycodone HCl 5 mg 08/28/25 13:35 08/28/25 13:41 Oxycodone Hcl Immed Release 5 Mg Tablet PO 08/28/25 13:36 5 mg ONCE ONE Administration Medical Decision Making Medical Decision Making [facility] Narrative: 79 yo male from home with PMH of cognitive decline, PAF on eliquis, arthritis, HTN, CAD, HLD, PMR has chronic L knee pain now here with joint pain and joint swelling - he is NV distally and has no rash or redness/heat to suggest septic joint. He will need xray, labs, US to rule out DVT and will perform arthrocentesis in ED Differential Diagnosis Differential Diagnoses: The differential diagnosis associated with the presentation includes hemarthrosis, gout, inflammatory reaction Admission/Observation Consideration of admission/observation: Escalation of care including admission/observation considered likely PT/CM pending culture results patient placed in observation at 213pm given effusion and diff walking. Lab Data [facility] Lab Attestation statement: I reviewed the patient's lab results. 08/28/25 09:49 08/28/25 09:49 Labs: Lab Results 08/28/25 08/28/25 Range/Units 09:49 12:00 WBC 9.9 (4.8-10.8) X10*3/uL RBC 4.53 L (4.60-5.80) X10*6/uL Hgb 14.5 (14.0-18.0) g/dl Hct 41.9 L (42.0-52.0) % MCV 92.5 (80.0-98.0) fL MCH 32.0 (27.0-33.0) pg MCHC 34.6 (31.0-36.0) g/dl RDW 12.1 (11.0-16.0) % Plt Count 172 (160-400) X10*3/uL MPV 11.2 (9.4-12.4) fL Immature Gran % (Auto) 0.4 (0.0-0.4) % Neut % (Auto) 71.7 (45-73) % Lymph % (Auto) 5.4 L (20-40) % [place] % (Auto) 22.3 H (2-11) % Eos % (Auto) 0.0 (0-4) % Baso % (Auto) 0.2 (0-2) % Lymph # (Auto) 0.5 L (1.2-4.9) X10*3/uL [place] # (Auto) 2.2 H (0.1-1.2) X10*3/uL Eos # (Auto) 0.0 (0.0-0.4) X10*3/uL Baso # (Auto) 0.0 (0.0-0.2) X10*3/uL Abs Immat Gran (auto) 0.04 H (0.00-0.03) X10*3/uL Absolute Neuts (auto) 7.1 (2.0-8.3) x10*3/uL Absolute Nucleated RBC 0.000 (0.0-0.012) X10*3/uL Nucleated RBC % (auto) 0.0 (0.0-0.2) /100WBC Smear Tech's Comments VERIFIED PT 13.7 H (10.9-12.4) SEC INR 1.2 H (0.9-1.1) Sodium 139 (135-145) mmol/L Potassium 3.8 (3.3-5.1) mmol/L Chloride 104 (96-108) mmol/L Carbon Dioxide 27 (22-29) mmol/L Anion Gap 12 (12-20) BUN 20 H (9-16) mg/dL Creatinine 0.78 (0.5-1.4) mg/dL Estim Creat Clear Calc 66.2 Estimated GFR > 60 Random Glucose 148 H (60-115) mg/dL Calcium 9.2 D (8.4-10.2) mg/dL Synovial Source L knee Synovial WBC 23.700 X10*3/uL Synovial RBC 0.008 X10*6/uL Synovial Neutrophils 94 % Synovial Lymphocytes 4 % Synovial Monocytes 2 % Independent Interpretation I performed an independent interpretation of an: Plain X-Ray (no fx) and Ultrasound (no DVT) Radiology Impression Discussion of test interpretation with radiology: I have reviewed the radiologist's reading. Independent Historian Clinical information obtained from an independent historian. History obtained from or confirmed by: EMS External Record Review External record reviewed: Outpatient record Prescription Management I considered prescription management with: Pain Medication and Other Procedures Joint Aspiration/Injection Joint Asp./Inject. 1: Time Out Performed: Yes Side of body: left Joint Aspirated: knee Ultrasound Guidance: No Skin Prep: Chlorhexidine Local Anesthetic: lidocaine 1% Amount of anesthesia used (mL): 7 Needle Size Used: 18G Fluid Obtained: turbid Total fluid obtained (mL): 10 Patient Tolerated Procedure: well and no complications Discharge Plan Discharge Clinical Impression: Large suprapatellar effusion of knee, Calcium pyrophosphate deposition disease Prescriptions: No Action (DME) walker Misc See Rx Instructions .MEDSUPPLY Qty: 1 0RF Rx Instructions: Folding Front wheeled walker Eliquis 5 mg tablet 5 mg PO BID Qty: 14 0RF Rx Instructions: Please ask patient to call office for an appointment to continue getting refills. carvedilol 12.5 mg tablet 12.5 mg PO BID Qty: 180 8RF atorvastatin 40 mg tablet 40 mg PO QPM finasteride 5 mg tablet 5 mg PO QPM calcium carbonate-vitamin D3 [Calcium with Vitamin D] 600 mg(1,500mg) -400 unit tablet 1 tab PO BID Referrals: [facility] [Other] Print Language: Iranian
[2025-08-28] MEDS: oxyCODONE HCl Immed Release 5 MG TABLET PO ×3 (09:42→22:08)
--- NOTE | 2025-08-28 09:46 | PC.NURSE ---
patient brought in by ems from home, states that he started having left knee pain last night, no injury. patient states that his left knee is often swollen but not as swollen as it is today. patient states the knee needs to be replaced but has no appt yet. patient lives at home alone, uses no assistive devices at baseline. today could not bare weight on left leg. patient left knee noted to be swollen, and warm to the touch, skin PWD, no mottling or discoloration. patient has strong pedal pulse. patient is alert and oriented x3.
[2025-08-28 09:58] LABS: Hematocrit 41.9 % (42.0-52.0); Hemoglobin 14.5 g/dl (14.0-18.0); Imm Gran Abs Auto 0.04 X10*3/uL (0.00-0.03); Imm Gran Pct Auto 0.4 % (0.0-0.4); Lymphocytes Absolute Auto 0.5 X10*3/uL (1.2-4.9); MANUAL DIFF FLAG SCAN; Mean Corpuscular HGB Conc 34.6 g/dl (31.0-36.0); Mean Corpuscular Hemoglobin 32.0 pg (27.0-33.0); Mean Corpuscular Volume 92.5 fL (80.0-98.0); NRBC Abs Auto 0.000 X10*3/uL (0.0-0.012); NRBC Pct Auto 0.0 /100WBC (0.0-0.2); Platelet Count 172 X10*3/uL (160-400); Red Blood Count 4.53 X10*6/uL (4.60-5.80); SCAN SMEAR FLAG 1; White Blood Count 9.9 X10*3/uL (4.8-10.8)
[2025-08-28 10:11] LABS: Anion Gap 12 (12-20); Blood Urea Nitrogen 20 mg/dL (9-16); Calcium 9.2 mg/dL (8.4-10.2); Carbon Dioxide 27 mmol/L (22-29); Chloride 104 mmol/L (96-108); Creatinine Clr Calc Pharmacy 66.2; Estimated Glomerular Filt Rate > 60; Potassium 3.8 mmol/L (3.3-5.1); Sodium 139 mmol/L (135-145)
[2025-08-28 10:13] LABS: INTERNATIONAL NORM RATIO 1.2 (0.9-1.1); Prothrombin Time 13.7 SEC (10.9-12.4)
[2025-08-28] MEDS: Lidocaine HCl 1 % MPF 5 ML VIAL SUBCUT (11:15)
--- OUTSIDE RECORDS SUMMARY | 2025-08-28 11:30 | XMS_ITS | Patient Health Record ---
[facility] Address [address] [place] [address] Care Team Providers Care Outside Salesman Name Role Phone Heath RILEY, Rikki Primary Care Provider Unavaila raheem Black, Alice Unavailable [phone] Reason For Referral No Information Plan Of Treatment No Information Insurance Providers Payer Name Payer Address Payer Phone Subscriber Number Group Number Insured Name Patient Relationship to Insured Coverage Start Date Coverage End Date Medicare National [employer] [address] [place] [address] Mohsen Naylor Self - patient is the insured [employer] [address] [place] [address] [phone] Mohsen Naylor Self - patient is the insured
--- OUTSIDE RECORDS SUMMARY | 2025-08-28 11:30 | XMS_ITS | Patient Health Record ---
Author Organization [facility] Address [address] [place] [id number] Care Team Providers Care Roller Painter Name Role Phone Juan Carlos Bloom [phone] Reason For Referral No Information Plan Of Treatment No Information
[2025-08-28 12:54] LABS: MN% 5.7 %; PMN% 94.3 %
[2025-08-28 12:57] LABS: RBC Synovial Fluid 0.008 X10*6/uL
[2025-08-28 13:11] VITALS: BP 114/59; PULSE 66; RESP 18; TEMP 36.8; O2SAT 96
[2025-08-28 14:03] LABS: BF Shift QC OK YES; Lymphocytes Synovial Fluid 4 %; Man Diluent Bkgrd OK YES; Monocytes Synovial Fluid 2 %; Neutrophils Synovial Fluid 94 %
[2025-08-28 15:35] VITALS: BP 120/52; PULSE 66; RESP 20; TEMP 36.9; O2SAT 94
--- NOTE | 2025-08-28 15:58 | PC.NURSE ---
Assumed care of pt. He is resting NAD, confirms pain somewhat subsided 04/21. Aware of plan for care and PT eval. med rec completed. a&ox4, able to make needs known.
--- NOTE | 2025-08-28 16:05 | PHA.MEDREC ---
Pharmacy Consult ? Medication Reconciliation Pharmacy has REVIEWED the medication reconciliation done by RN. Only discrepancy noticed is the omission of clopidogrel. RN spoke to patient, contacted RN via [employer]. Will follow up with reply.
[2025-08-28 16:31] VITALS: BP 120/52; PULSE 66; O2SAT 94
--- NOTE | 2025-08-28 17:40 | MHC.CM.ED ---
CM met with patient for discharge planning. Medical record reviewed. PT will re-evaluate in am. Disposition home w services vs STR. Pt feels he should be able to go home. Is agreeable to home services if recommended. Lives alone. Girlfriend visits. Has an old walker at home. He does not use it. He does not have any services. Pt is very independent. Drives. PCP and insurance verified. No Q.S. No HCP. HCP reviewed, completed and signed. HCP/sister Jordyn Sol ([phone]) Copies given. Uploaded into Care Port and [facility] Expanse. CM will follow for discharge planning.
--- NOTE | 2025-08-28 21:23 | PC.NURSE ---
RN went to medicate pt per jan- when RN went into the room pt stated he already took his home meds. RN educated pt that he cannot take his own meds while in the hospital. Pt verbally stated his understanding. RN to inform provider.
[2025-08-28 21:32] VITALS: BP 119/62; PULSE 63; RESP 20; TEMP 37; O2SAT 94
[2025-08-29 05:08] VITALS: BP 129/69; PULSE 65; RESP 20; TEMP 36.9; O2SAT 95
[2025-08-29 07:27] VITALS: BP 129/69; PULSE 65
[2025-08-29] MEDS: oxyCODONE HCl Immed Release 5 MG TABLET PO ×2 (07:27→18:05)
[2025-08-29] MEDS: Calcium + Vitamin D 250 MG TABLET PO ×2 (07:27→22:05)
--- NOTE | 2025-08-29 07:28 | PC.NURSE ---
patient a&ox3, vss, rr equal non labored, + csm/pulses to lle, micah wrap to lt knee intact pt c/o 5-/10 lt knee pain but is also stating his left thumb is painful- will notify provider as well. pt ambulatory with walker/stby, call diaz within reach, plan of care ongoing
[2025-08-29 08:16] VITALS: BP 132/70; PULSE 71; RESP 18; TEMP 37.1; O2SAT 96
--- NOTE | 2025-08-29 09:39 | PC.NURSE ---
PT evaluated the patient- per PT they will suggest STR
[2025-08-29 17:57] VITALS: BP 119/75; PULSE 87; RESP 16; TEMP 36.6; O2SAT 98
--- NOTE | 2025-08-29 18:11 | PC.NURSE ---
patient a&ox3, ambulatory with walker and stby assist as patient is unsteady with walker/fall precautions in place, pt does not like staff walking with him to the bathroom, this nurse has explained numerous times that we are concerned for his safety while walking. pt has c/o 6/10 lt knee pain- he was medicated with pain meds per orders. vitals continue to be stable, call diaz within reach, plan of care ongoing
[2025-08-29 22:06] VITALS: BP 117/76; PULSE 92
[2025-08-30 06:27] VITALS: BP 124/71; PULSE 74; RESP 16; TEMP 36.7; O2SAT 97
[2025-08-30 08:45] VITALS: BP 110/62; PULSE 68; RESP 16; O2SAT 95
[2025-08-30 08:46] VITALS: BP 110/62; PULSE 68
[2025-08-30] MEDS: Calcium + Vitamin D 250 MG TABLET PO ×2 (08:46→20:57)
[2025-08-30] MEDS: oxyCODONE HCl Immed Release 5 MG TABLET PO ×2 (11:02→20:54)
--- NOTE | 2025-08-30 11:36 | MHC.CM.PN ---
Pt remains in the ED: PT recommending STR: Pt has MCR without a qualifying stay. Referred pt to acute rehab - awaiting responses at this time.
--- NOTE | 2025-08-30 13:48 | PC.NURSE ---
Pt alert, slightly confused but answers most questions appropriately. Breathing even and unlabored. Pt walked to bathroom with walker, 1 assist. Took meds whole with no issues. VSS. Plan for STR.
[2025-08-30 14:11] VITALS: BP 113/57; PULSE 68; RESP 14; TEMP 36.9; O2SAT 95
--- NOTE | 2025-08-30 14:50 | PC.NURSE ---
Pt placed in hospital bed for comfort
--- NOTE | 2025-08-30 17:43 | HO.NURTONUR ---
Per MD report: 79 yo male from home with PMH of cognitive decline, PAF on eliquis, arthritis, HTN, CAD, HLD, PMR has chronic L knee pain and intermittent swelling. Notes the past month has been worse. He has no rash, trauma, fevers. He states the swelling and pain worsened last night and he couldn't sleep all night. He denies any rash and has not had his knee aspirated before. PER RN: Alert and mostly oriented, has some confusion Uses walker, 1 assist to bathroom, steady on feet L knee wrapped Pain: left knee and left wrist/hand PRN oxy for the pain works well Meds whole with water Regular diet, independent Plan: STR
[2025-08-30 20:47] VITALS: BP 127/70; PULSE 66; RESP 16; TEMP 36.6; O2SAT 97
[2025-08-31] MEDS: oxyCODONE HCl Immed Release 5 MG TABLET PO ×3 (02:54→20:38)
[2025-08-31 06:16] VITALS: BP 116/65; PULSE 62; RESP 16; TEMP 36.6; O2SAT 96
--- NOTE | 2025-08-31 08:52 | MHC.CM.ED ---
Addendum entered by Iona Christian 08/31/25 13:58: Patient aware. Original Note: Patient remains in ER overflow. Physical therapy is recommending rehab. [facility] unable to offer a bed. [facility] is still reviewing. Patient is agreeable to rehab. Continue to monitor for d/c needs.
[2025-08-31 09:47] VITALS: BP 116/65; PULSE 62
[2025-08-31] MEDS: Calcium + Vitamin D 250 MG TABLET PO ×2 (09:47→20:38)
--- NOTE | 2025-08-31 10:26 | PC.NURSE ---
Case management at bedside speaking with the patient & family. Medicated per provider orders. Care ongoing by this RN.
[2025-08-31 14:20] VITALS: BP 107/62; PULSE 62; RESP 16; TEMP 37.2; O2SAT 95
[2025-08-31 20:39] VITALS: BP 120/70; PULSE 63
[2025-08-31 21:27] VITALS: BP 127/75; PULSE 62; RESP 16; TEMP 36.7; O2SAT 96
[2025-09-01 06:00] VITALS: BP 134/70; PULSE 57; RESP 16; TEMP 36.4; O2SAT 96
[2025-09-01 08:02] VITALS: BP 132/72; PULSE 60
[2025-09-01] MEDS: Calcium + Vitamin D 250 MG TABLET PO (08:03)
--- NOTE | 2025-09-01 11:35 | MHC.CM.ED ---
Received telephone call from patient's sister, Jordyn. Jordyn made aware physical therapy is rec rehab and CM is waiting to hear from [facility] if they are able to offer a bed. Jordyn verbalizes understanding. Continue to monitor for d/c needs.
--- NOTE | 2025-09-01 13:35 | MHC.CM.ED ---
[facility] is able to offer a bed. Patient can leave at 330pm. [facility] C RODRIGUEZ booked. Med nec with chart. Patient, sig other Jana Baltazar RN and Kirsty DARNELL aware. Attempted to notify patient's sister/HCP, Lian via telephone at [phone]. Left message with d/c info. Patient requesting to complete new HCP with Delaney ESCALERA as secondary. HCP completed, signed and witnessed. Original given to patient. Copy placed in chart. Continue to monitor for d/c needs.
[2025-09-01] MEDS: oxyCODONE HCl Immed Release 5 MG TABLET PO (13:47)
[2025-09-01 14:00] VITALS: BP 140/75; PULSE 60; RESP 18; TEMP 37.2; O2SAT 96
== END 2025-09-01 16:00 ==
PROVIDERS: Emergency Provider Emergency Medicine; PCP Internal Medicine
DX: M25.462 Effusion, left knee (principal); E58 Dietary calcium deficiency; R26.2 Difficulty in walking, not elsewhere classified; M25.562 Pain in left knee; M79.642 Pain in left hand; I25.10 Atherosclerotic heart disease of native coronary artery without angina pectoris; R60.0 Localized edema; I10 Essential (primary) hypertension; Z79.899 Other long term (current) drug therapy; Z79.01 Long term (current) use of anticoagulants
CPT/HCPCS: 20610; 36415; 73130; 73560; 80048; 85025; 85610; 87070; 87073; 87205; 89051; 89060; 93971; 97161; 97530; 99285; J2003

== ENCOUNTER → 2025-08-28 09:35 | Outpatient (BNV) | payer MEDICARE, SELFPAY | PROVIDERS: Emergency Provider Emergency Medicine; PCP Internal Medicine; Visit Provider Radiology Diagnostic Radiology | DX: M79.662 Pain in left lower leg (principal); R22.42 Localized swelling, mass and lump, left lower limb; M17.12 Unilateral primary osteoarthritis, left knee; M11.262 Other chondrocalcinosis, left knee; M25.462 Effusion, left knee | CPT/HCPCS: 73560; 93971 ==

== ENCOUNTER → 2025-08-29 12:45 | Outpatient (BNV) | payer MEDICARE, SELFPAY | PROVIDERS: Emergency Provider Emergency Medicine; PCP Internal Medicine; Visit Provider Radiology Diagnostic Radiology | DX: M19.042 Primary osteoarthritis, left hand (principal) | CPT/HCPCS: 73130 ==

== ENCOUNTER 2025-09-18 12:21 | Outpatient (AMB) | payer MEDICARE, SELFPAY ==
--- OUTSIDE RECORDS SUMMARY | 2024-09-29 03:30 | XMS_ITS ---
Author Organization [facility] Address [address] [place] [address] Care Team Providers Care Graphite Pan Drier Tender Name Role Phone Heath RILEY, Rikki Primary Care Provider Unavaila Alice Rodriguez Unavailable [phone] REASON FOR VISIT no ppwrk Encounters Encounter Location Date Provider Diagnosis [facility] [address] [place] [address] 09/29/2024 Alice Diez Plan Of Treatment No Information Progress Notes * Mohsen NAYLOR ADOB: 3 (79 yo M)Acc No.[id number]:09/29/2024 Progress Notes Patient: Mohsen PENNINGTON Provider: Otilia Diez DPM :1945 A ge:79 Y S ex:Male Date:09/29/2024 Address:[address] [place], [place] [phone] Pcp:Rikki Joe MD Subjective: * Chief Complaints: [...] Date: 11/29/2023 Generated for Brigette ball/[place] on: 11/18/2024 02:35 PM EST
--- NOTE | 2025-09-18 12:37 | A.OFFPC_ITS ---
Vital Signs 09/18/25 12:39 Height 5 ft 3 in Weight 158 lb BMI 28.0 BP 140/72 H Blood Pressure Location Lt brachial Position Sitting Pulse 56 Pulse Source Pulse Oximeter Temp 97.3 F Temp Source Temporal Artery Scan Pulse Oximetry (%) 99 Oxygen Delivery Method Room Air Intake Visit Reasons: [facility] 09/09 Intake Note: Patient is here for hospital discharge follow up. Patient was discharged from [facility] on 09/09/25. Clinical Staff Pharmacist Required: No Crossbow Maker: Present Allergies No Known Allergies Allergy (Verified 09/18/25 12:38) Medication List - Last Reconciled 09/18/25 by Ewelina Pak, HENRI apixaban (Eliquis) 5 mg PO BID atorvastatin 40 mg PO QPM calcium carbonate-vitamin D3 600 mg-10 mcg (400 unit) (Calcium with Vitamin D) 1 tab PO BID carvedilol 12.5 mg PO BID finasteride 5 mg PO QPM walker Folding Front wheeled walker Tobacco use date assessed: 09/18/25 Fall risk assessment: No Falls in past year Last assessed Fall Risk: 09/18/25 Dental Screening Dental Screen Date: 06/10/25 HPI HPI Comments History of Present Illness Details 79 y/o Male patient who presents to the clinic for EDF. Past medical history significant for cognitive decline, PAF on eliquis, arthritis, HTN, CAD, HLD, and chronic Left knee pain. He was admitted to [facility] [place]/25 for an evaluation of Supra-patellar Effusion left knee. He was discharged to [facility] on 09/01-09/09. Reports persistent left knee pain and swelling. He expresses interest in pursuing knee replacement and requests a referral to Orthopedics. No new complaints reported today. [facility] Medical History Nocturia more than twice per night RBBB Other obstructive and reflux uropathy Weak urinary stream Screening for diabetes mellitus Abnormal stress test HTN (hypertension) Pre-op exam Cerumen impaction Dizzy spells Right inguinal hernia Urinary tract infection Polymyalgia rheumatica Hyperlipidemia CAD (coronary artery disease) Surgical History S/P cardiac cath Stented coronary artery History of colonoscopy Hx of cardiac cath Family History Father CVD (cardiovascular disease) Mother CVD (cardiovascular disease) Social History Household Members: None Housing: House Are you a primary critical care registered nurse to a significant other at home: No Do you presently have visiting nurse or other home services: No Alcohol intake: never Comment: aware of trip hazard Patient Tobacco Use Status: Never used Tobacco Tobacco use type: Cigarette e-Cigarette/Vaping Use: Never Used Second Hand Smoke Exposure: No Advance Directives Date on File: 09/01/25 service: No Current occupational status: retired Current occupational exposures/hazards: No Cognitive needs: No Hearing needs: No Vision needs: Yes Questionnaire Thrive Questionnaire Date Thrive assessed: 06/10/25 I am a: Patient What is your living situation today?: I have a steady place to live Within the past 12 months, did the food you bought not last and you didn't have the money to get more?: Never true Within the past 12 months, did you worry whether your food would run out before you got money to buy more?: Never true Do you have trouble paying for medicines?: No Do you have trouble getting transportation to medical appointments?: No Do you have trouble paying your heating and electricity bill?: No Do you have trouble taking care of your child, family member or friend?: No Do you have trouble with day-to-day activities such as bathing, preparing meals, shopping, managing finances, etc.?: No Are you currently unemployed and looking for a job?: No Are you interested in more education?: No Please select the resources that you would like help with: None Currently or been in a relationship where the following occur: No concerns reported THRIVE Score: 0 ROBE-7 AMB Questionnaire ROBE-7 Date ROBE - 7 assessed: 12/12/24 Source: Developed by Drs. Juan Carlos Finch, Heike Roberson, Justin Rene and colleagues, with an educational suzanne from [employer] Review of Systems Const All systems reviewed & are unremarkable except as noted in HPI and below Physical exam (Primary Care) Vital Signs: Last Vital Signs Temp 97.3 F 09/18/25 12:39 Pulse 56 09/18/25 12:39 BP 140/72 H 09/18/25 12:39 Pulse Ox 99 09/18/25 12:39 Oxygen Delivery Method Room Air 09/18/25 12:39 BMI result Body Mass Index 28.0 Tobacco/Smoking Status: Tobacco use Status Tobacco use date assessed 09/18/25 09/18/25 12:43 Patient Tobacco Use Status Never used Tobacco 09/18/25 12:43 Tobacco use type Cigarette 09/18/25 12:43 e-Cigarette/Vaping Use Never Used 09/18/25 12:43 Thrive Assessment: Date of Thrive Assessment Date Thrive assessed 06/10/25 09/18/25 12:43 Currently or been in a relationship where the following occur: No concerns reported Const General: no acute distress Nutritional Appearance: overweight Orientation/consciousness: patient oriented x3 Neuro General: patient oriented x3, gait normal and moves all extremities Extrem Other: Left knee: Mild swelling noted, limited range of motion secondary to pain. No erythema or warmth. Psych Speech and movement: Clear speech present Attitude: cooperative Coding Level of Care Code Est Pt Level 4 (52724) Diagnoses Primary osteoarthritis of left knee M17.12 Osteoarthritis type: primary Time Spent (min) 20 Assessment & Plan Assessment & Plan (1) Osteoarthritis of left knee: Code(s): M17.12 - Unilateral primary osteoarthritis, left knee Category: Medical Qualifiers: Osteoarthritis type: primary Qualified Code(s): M17.12 - Unilateral primary osteoarthritis, left knee Plan: Refer to Orthopedics for evaluation for possible left total knee replacement. Return to clinic as needed for worsening pain or swelling. Orders: Referrals Orthopedics Referral M17.12 - Unilateral primary osteoarthritis, left knee
[2025-09-18 12:39] VITALS: BP 140/72; PULSE 56; TEMP 36.3; O2SAT 99; BMI 28.0
--- OUTSIDE RECORDS SUMMARY | 2025-09-18 14:36 | XMS_ITS | Patient Health Record ---
[facility] Address [address] [place] [address] Care Team Providers Care Lamina Searcher Name Role Phone Heath RILEY, Rikki Primary Care Provider Unavaila raheem Black, Alice Unavailable [phone] Reason For Referral No Information Plan Of Treatment No Information Insurance Providers Payer Name Payer Address Payer Phone Subscriber Number Group Number Insured Name Patient Relationship to Insured Coverage Start Date Coverage End Date Medicare National Govt Svcs Inc [address] [place] [address] Mohsen Naylor Self - patient is the insured [employer] Blue [employer] [address] [place] [address] Mohsen Naylor Self - patient is the insured
--- OUTSIDE RECORDS SUMMARY | 2025-09-18 14:36 | XMS_ITS | Patient Health Record ---
Author Organization [facility] Address [address] [place] [id number] Care Team Providers Care Shipping/Receiving Clerk Name Role Phone Juan Carlos Bloom [phone] Reason For Referral No Information Plan Of Treatment No Information
== END 2025-09-18 13:19 | disposition home or self-care (01) ==
LOC: HO.HMCH 12:22
PROVIDERS: PCP Internal Medicine; Visit Provider Nurse Practitioner Family
DX: M17.12 Unilateral primary osteoarthritis, left knee (principal)

== ENCOUNTER → 2025-09-18 12:21 | Outpatient (BNVA) | payer MEDICARE, SELFPAY | PROVIDERS: PCP Internal Medicine; Visit Provider Nurse Practitioner Family | DX: M17.12 Unilateral primary osteoarthritis, left knee (principal) | CPT/HCPCS: 99212 ==

== ENCOUNTER 2025-09-25 14:15 | Outpatient (AMB) | payer MEDICARE, SELFPAY ==
--- OUTSIDE RECORDS SUMMARY | 2024-09-29 03:30 | XMS_ITS ---
Author Organization [facility] Address [address] [place] [address] Care Team Providers Care Cold Rolling Coordinator Name Role Phone Heath RILEY, Rikki Primary Care Provider Unavaila Alice Rodriguez Unavailable [phone] REASON FOR VISIT no ppwrk Encounters Encounter Location Date Provider [facility] [address] [place] [address] 09/29/2024 Alice Diez Plan Of Treatment No Information Progress Notes * Mohsen NAYLOR ADOB: 3 (80 yo M)Acc No.[id number]:09/29/2024 Progress Notes Patient: Mohsen PENNINGTON Provider: Otilia Diez DPM :1945 A ge:79 Y S ex:Male Date:09/29/2024 Address:[address] [place], [place] [id number] Pcp:Rikki Joe MD Subjective: * Chief Complaints: * 1 . No ppwrk. * Medical History: Objective: * Vitals: Assessment: Plan: * Treatment: * Images: * The named appointment provid er may or may not be the originator of this progress note, and it is not deemed complete until electronically signed by the appointment provider. Sign off status: Pending * Provider: Otilia Diez DPM Date: 11/29/2023 Generated for Brigette ball/[place]oby on: 11/25/2024 09:13 PM EST
[2025-09-25 14:24] VITALS: BP 118/62; PULSE 68; O2SAT 97; BMI 28.7
--- NOTE | 2025-09-25 14:24 | A.OFFPC_ITS ---
Vital Signs 09/25/25 14:24 Height 5 ft 3 in Weight 162 lb BMI 28.7 BP 118/62 Blood Pressure Location Lt brachial Position Sitting Pulse 68 Pulse Source Pulse Oximeter Pulse Oximetry (%) 97 Oxygen Delivery Method Room Air Intake Visit Reasons: Hypertension Allergies No Known Allergies Allergy (Verified 09/25/25 14:25) Tobacco use date assessed: 09/18/25 Fall risk assessment: No Falls in past year Last assessed Fall Risk: 09/25/25 Dental Screening Dental Screen Date: 06/10/25 HPI Hypertension HPI Details october 28, 2025 for the prostate procedure and wants the eliquis stopped 5 days. concern on recommendations of 2 days before the procedure. knee OAe meeting ortho November 20, 2024 [facility] Medical History Nocturia more than twice per night RBBB Other obstructive and reflux uropathy Weak urinary stream Screening for diabetes mellitus Abnormal stress test HTN (hypertension) Pre-op exam Cerumen impaction Dizzy spells Right inguinal hernia Urinary tract infection Polymyalgia rheumatica Hyperlipidemia CAD (coronary artery disease) Surgical History S/P cardiac cath Stented coronary artery History of colonoscopy Hx of cardiac cath Family History Father CVD (cardiovascular disease) Mother CVD (cardiovascular disease) Social History Household Members: None Housing: House Are you a primary animal care worker to a significant other at home: No Do you presently have visiting nurse or other home services: No Alcohol intake: never Comment: aware of trip hazard Patient Tobacco Use Status: Never used Tobacco Tobacco use type: Cigarette e-Cigarette/Vaping Use: Never Used Second Hand Smoke Exposure: No Advance Directives Date on File: 09/01/25 service: No Current occupational status: retired Current occupational exposures/hazards: No Cognitive needs: No Hearing needs: No Vision needs: Yes Questionnaire Thrive Questionnaire Date Thrive assessed: 06/10/25 I am a: Patient What is your living situation today?: I have a steady place to live Within the past 12 months, did the food you bought not last and you didn't have the money to get more?: Never true Within the past 12 months, did you worry whether your food would run out before you got money to buy more?: Never true Do you have trouble paying for medicines?: No Do you have trouble getting transportation to medical appointments?: No Do you have trouble paying your heating and electricity bill?: No Do you have trouble taking care of your child, family member or friend?: No Do you have trouble with day-to-day activities such as bathing, preparing meals, shopping, managing finances, etc.?: No Are you currently unemployed and looking for a job?: No Are you interested in more education?: No Please select the resources that you would like help with: None Currently or been in a relationship where the following occur: No concerns reported THRIVE Score: 0 ROBE-7 AMB Questionnaire ROBE-7 Date ROBE - 7 assessed: 12/12/24 Source: Developed by Drs. Juan Carlos Finch, Heike Roberson, Justin Rene and colleagues, with an educational suzanne from [employer]. Physical exam (Primary Care) Vital Signs: Last Vital Signs Pulse 68 09/25/25 14:24 BP 118/62 09/25/25 14:24 Pulse Ox 97 09/25/25 14:24 Oxygen Delivery Method Room Air 09/25/25 14:24 BMI result Body Mass Index 28.7 Tobacco/Smoking Status: Tobacco use Status Tobacco use date assessed 09/18/25 09/25/25 14:25 Patient Tobacco Use Status Never used Tobacco 09/25/25 14:25 Tobacco use type Cigarette 09/25/25 14:25 e-Cigarette/Vaping Use Never Used 09/25/25 14:25 Thrive Assessment: Date of Thrive Assessment Date Thrive assessed 06/10/25 09/25/25 14:25 Currently or been in a relationship where the following occur: No concerns reported Const General: alert; No acute distress Eyes Conjunctivae: conjunctivae normal Resp Auscultation: clear to auscultation bilaterally Cardio Rate: regular rate Rhythm: regular rhythm GI Inspection: Yes normal to inspection Extrem General: Yes normal to inspection and No edema Office Procedures Flu Questionnaire Does the patient have a severe egg allergy?: No Does the patient have severe life threatening allergies?: No Does the patient have a fever or illness today?: No Has the patient ever had Guillain-[place]and[place] Syndrome?: No Has the patient ever had any past reaction to a flu shot?: No Immunizations Fluarix [id number] (PF) 45 mcg (15 mcg x 3)/0.5 mL IM syringe Performing Provider: Brittani Vila MD [facility] Administered by: Josselyn Herrera CMA on 09/25/25 14:31 Dose Route Admin Location Dispensed Lot Number Expiration Date [employer] Manager 0.5 mL IM Left Deltoid 0.5 mL [id number] 05/11/26 [id number] [employer] VIS Given Date VIS Provided VIS Publication Date 09/25/25 Single Vaccine 24 Eligibility Eligibility Date Funding Source Not [facility] Eligible 09/25/25 Private Coding Level of Care Code Est Pt Level 4 (01079) Complex EM visit Add On G2211 Diagnoses Paroxysmal atrial fibrillation I48.0 Hypertension I10 Hyperlipidemia E78.5 CAD (coronary artery disease) I25.10 Impaired glucose tolerance R73.02 Assessment & Plan Assessment & Plan (1) Paroxysmal atrial fibrillation: Code(s): I48.0 - Paroxysmal atrial fibrillation Category: Medical Plan: Continue with anticoagulation and twice a day year of blood work requested. (2) Hypertension: Code(s): I10 - Essential (primary) hypertension Category: Medical Plan: Continue with blood pressure medication. Decrease salt intake and exercise on carvedilol 12.5 mg twice a day (3) Hyperlipidemia: Code(s): E78.5 - Hyperlipidemia, unspecified Category: Medical Plan: Avoid fried foods, chicken skin, eggs, butter margarine, pastries and meat. Be it pork or beef they have a lot of cholesterol LDL goal of less than 70 and triglyceride of less than 150 on atorvastatin 40 mg once a day patient needs blood work (4) CAD (coronary artery disease): Code(s): I25.10 - Atherosclerotic heart disease of [place] coronary artery without angina pectoris Category: Medical Plan: Control the cholesterol, weight, blood pressure, continue with anticoagulation (5) Impaired glucose tolerance: Code(s): R73.02 - Impaired glucose tolerance (oral) Category: Medical Plan: Decrease the amount of carbohydrate intake, pasta, bread, rice and potatoes are all sugar and that is aside from all the sweet stuff, remember that fruits are good but they are Sweet also. Plan History of Present Illness The patient is an 80-year-old male with a history of coronary artery disease, hypercholesterolemia, polymyalgia rheumatica, hypertension, benign prostatic hyperplasia, osteoarthritis of the knee, atrial fibrillation, cognitive decline, and impaired glucose tolerance who presents for a follow-up. His last visit was on June 10, 2025. His coronary artery disease history includes a stent placement in August, and he was advised to discontinue Plavix as he is on another anticoagulant. For his atrial fibrillation, he is managed by cardiology, whom he saw on August 17, and is on clopidogrel, Eliquis, and carvedilol. His last echocardiogram on July 30 showed an EF of 55% with moderate basal asymmetric septal hypertrophy and no valvular issues. Regarding his left knee osteoarthritis, the patient had a visit on September 18 and was referred to orthopedics. He was also seen in the emergency room on August 28 for left knee pain, where a joint aspiration revealed a large suprapatellar effusion and calcium pyrophosphate deposition. For BPH, he saw urology on August 20 and is taking finasteride. He previously tried tamsulosin, which made him dizzy. Symptoms include getting up four to eight times a night to urinate and frequent urination during the day. The patient's last colon test was in 2019. He reports having a hernia for years, which is stable and not bothersome. He recently had a painful growth on his eyelid that dried up and fell off on its own. Blood work from August 28 showed normal blood counts, platelets, electrolytes, and renal function, with a blood sugar of 148. His last cholesterol check in September 2024 showed an LDL of 67. Health Maintenance A lab requisition was provided for fasting blood work, including lipids and glucose, to be completed in three months. The patient received his flu shot today and is up to date on his pneumonia vaccine. His tetanus shot is due next year. Social History - The patient understands he will be unable to drive after his prostate surgery and will need to arrange for transportation. - He is advised to avoid heavy lifting due to his hernia. Review of Systems - Genitourinary: Reports nocturia, waking 4-8 times per night to urinate, and increased urinary frequency during the day. - Musculoskeletal: Reports his left knee feels and looks larger. - Integumentary: Reports a recent painful growth on his eyelid that resolved spontaneously after two days. - Neurological: Reports a history of dizziness with tamsulosin. Physical Exam - Constitutional: Blood pressure is well-controlled. - Cardiovascular: Heart rhythm is irregular. - Musculoskeletal: Visual inspection of the left knee reveals it is enlarged compared to the contralateral side. Results - Blood work (08/28): Normal blood count with normal platelet count, normal electrolytes, and normal renal function. - Blood sugar (08/28): 148 mg/dL. - Cholesterol (09/2024): LDL was 67 mg/dL. - Joint aspiration of left knee (08/28): Showed a large suprapatellar effusion and evidence of calcium pyrophosphate deposition. - Echocardiogram (07/30): EF of 55% with moderate basal asymmetric septal hypertrophy and no valvular problem. Plan Patient was informed and verbally consented to the use of an ambient scribe for clinic note documentation during this visit. 1. Benign Prostatic Hyperplasia The patient is scheduled for a prostate ablation on October 26. There is a discrepancy regarding the pre-procedural hold of Eliquis; urology recommended a 5-day hold, whereas cardiology advised that a 3-day hold would be sufficient. The patient was advised to clarify the duration with his urology team. He will b e NPO from midnight before the procedure and has follow-up appointments scheduled for October 29 and December 07. 2. Osteoarthritis, Left Knee The patient has a meeting with orthopedics scheduled for November 20 to discuss the management of his left knee, which may include knee replacement surgery. 3. Atrial Fibrillation Continue anticoagulation with Eliquis. Blood work to monitor renal function is needed at least twice a year while on Eliquis. Patient will have a follow-up echocardiogram in one year from his last one in July. 4. Hypercholesterolemia Continue atorvastatin 40 mg once a day, with a target LDL of less than 70 mg/dL and triglycerides less than 150 mg/dL. Blood work, including a lipid panel, will be checked in three months. 5. Hypertension Continue carvedilol 12.5 mg twice a day as blood pressure is well-controlled. 6. Inguinal Hernia The hernia is long-standing and asymptomatic. Will continue to monitor and advised the patient to avoid lifting heavy objects. Discussion Notes I reviewed the patient's upcoming prostate ablation, which is scheduled for October 26. We discussed the conflicting instructions regarding holding his Eliquis, with a 5-day hold recommended by urology and a 3-day hold suggested by cardiology. I advised him to clarify this with the urology office and provided their contact number, noting that cardiology's recommendation of 3 days seems appropriate. We also discussed his upcoming orthopedic appointment on November 20 to discuss his left knee. I provided a lab requisition for fasting blood work to be done in three months. I advised him to avoid heavy lifting due to his stable hernia and encouraged adequate hydration. Patient Instructions - You have a prostate surgery scheduled for October 26. - Please call your urology office at [phone] to confirm when you should stop taking your Eliquis blood thinner before the surgery. - Do not eat or drink anything after midnight on the night before your surgery. - You will need to arrange for someone to drive you to and from the hospital on the day of your surgery. - You have an appointment with the home health billing specialist on November 20 to talk about your left knee. - You will need to get blood work done in about three months. - Do not eat or drink anything before your blood test. - Avoid lifting heavy things to protect your hernia. - Make sure you are drinking enough water to stay hydrated. Orders: Orders Influenza [id number] Immunization Today Z23 - Encounter for immunization Complete Blood Count Auto Diff Today R73.02 - Impaired glucose tolerance (oral) Comprehensive Met. Panel Today R73.02 - Impaired glucose tolerance (oral) Free T4 (Free Thyroxine) Today R73.02 - Impaired glucose tolerance (oral) Thyroid Stimulating Hormone Today R73.02 - Impaired glucose tolerance (oral) Magnesium Today R73.02 - Impaired glucose tolerance (oral) Lipid Panel Today E78.00 - Pure hypercholesterolemia, unspecified, R73.02 - Impaired glucose tolerance (oral) Vitamin B12 and Folate Today R73.02 - Impaired glucose tolerance (oral) Hemoglobin A1c Today R73.02 - Impaired glucose tolerance (oral)
--- OUTSIDE RECORDS SUMMARY | 2025-09-25 21:13 | XMS_ITS | Patient Health Record ---
[facility] Address [address] [place] [address] Care Team Providers Care Oil Field Pumper Name Role Phone Heath RILEY, Rikki Primary Care Provider Unavaila raheem Black, Alice Unavailable [phone] Reason For Referral No Information Plan Of Treatment No Information Insurance Providers Payer Name Payer Address Payer Phone Subscriber Number Group Number Insured Name Patient Relationship to Insured Coverage Start Date Coverage End Date Medicare National Govt Svcs Inc [address] [place] [address] Mohsen Naylor Self - patient is the insured [employer] [address] [place] [address] Mohsen Naylor Self - patient is the insured
== END 2025-09-25 15:03 | disposition home or self-care (01) ==
LOC: HO.HMCH 14:16
PROVIDERS: PCP Internal Medicine; Visit Provider Internal Medicine
DX: I48.0 Paroxysmal atrial fibrillation (principal); I10 Essential (primary) hypertension; E78.5 Hyperlipidemia, unspecified; I25.10 Atherosclerotic heart disease of native coronary artery without angina pectoris; R73.02 Impaired glucose tolerance (oral); Z23 Encounter for immunization

== ENCOUNTER → 2025-09-25 14:15 | Outpatient (BNVA) | payer MEDICARE, SELFPAY | PROVIDERS: PCP Internal Medicine; Visit Provider Internal Medicine | DX: I10 Essential (primary) hypertension (principal); I48.0 Paroxysmal atrial fibrillation; E78.5 Hyperlipidemia, unspecified; I25.10 Atherosclerotic heart disease of native coronary artery without angina pectoris; R73.02 Impaired glucose tolerance (oral); N40.0 Benign prostatic hyperplasia without lower urinary tract symptoms; M17.12 Unilateral primary osteoarthritis, left knee; E78.00 Pure hypercholesterolemia, unspecified; K40.90 Unilateral inguinal hernia, without obstruction or gangrene, not specified as recurrent; Z23 Encounter for immunization; Z79.01 Long term (current) use of anticoagulants | CPT/HCPCS: 90471; 90656; 99212 ==

== ENCOUNTER 2025-09-28 09:46 | Outpatient (REF) | payer MEDICARE, SELFPAY ==
--- NOTE | ~2025-09-28 | XR_ITS ---
EXAMINATION: XR KNEE, LEFT CLINICAL INFORMATION: M25.562 - Pain in left knee COMPARISON: X-ray 08/28/2025 TECHNIQUE: AP bilateral knees one view. Left knee 1 sunrise view. FINDINGS: Left knee: Redemonstrated severe medial compartment arthritis, with bony remodeling and osteophytes. Genu varus angulation, with widening of the lateral joint space. Mild lateral compartment arthritis with probable chondrocalcinosis. Moderate patellofemoral joint arthritis. No visible acute fracture or dislocation. Multiple ossifications medially, concerning for loose bodies. Right knee: Medial compartment joint space narrowing XR/XR knee LT 2V IMPRESSION: Left knee: Tricompartment osteoarthritis. Severe medial compartment arthritis. Suspected loose bodies. Electronically signed by: Candelario Lagos MD 09/29/2025 11:10 AM [facility]
== END 2025-09-28 09:47 | disposition home or self-care (01) ==
LOC: HO.HOSX 09:46
PROVIDERS: Visit Provider Physician Assistant
DX: M17.12 Unilateral primary osteoarthritis, left knee (principal)
CPT/HCPCS: 73560

== ENCOUNTER 2025-09-28 14:09 | Outpatient (AMB) | payer MEDICARE, SELFPAY ==
--- NOTE | 2025-09-28 14:20 | MHC.OFFVIS ---
Intake Visit Reasons: OV-Osteoarthritis of left knee Intake Note: Mohsen is an 80 year old male who presents today for a follow up of left knee OA. Patient was last seen in office on 08/23/23, surgical intervention was discussed. Today patient reports ongoing knee pain that is located at the anterior aspect of knee. He complains of swelling in his knee. States his pain is not too bad however it is sore. 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 Allergies No Known Allergies Allergy (Verified 09/28/25 14:27) Medication List - Last Reconciled 09/28/25 by Beau Dixon PA-C apixaban (Eliquis) 5 mg PO BID atorvastatin 40 mg PO QPM calcium carbonate-vitamin D3 600 mg-10 mcg (400 unit) (Calcium with Vitamin D) 1 tab PO BID carvedilol 12.5 mg PO BID finasteride 5 mg PO QPM walker Folding Front wheeled walker HPI HPI OV-Osteoarthritis of left knee: Details: 80-year-old gentleman who presents to the office today for pain in the left knee. He states the pain is not constant it is only with certain activities and it is tolerable. It does not limit his ability to perform daily activities. PFS Medical History Nocturia more than twice per night RBBB Other obstructive and reflux uropathy Weak urinary stream Screening for diabetes mellitus Abnormal stress test HTN (hypertension) Pre-op exam Cerumen impaction Dizzy spells Right inguinal hernia Urinary tract infection Polymyalgia rheumatica Hyperlipidemia CAD (coronary artery disease) Surgical History S/P cardiac cath Stented coronary artery History of colonoscopy Hx of cardiac cath Family History Father CVD (cardiovascular disease) Mother CVD (cardiovascular disease) Social History Household Members: None Housing: House Are you a primary neonatal intensive care unit nurse to a significant other at home: No Do you presently have visiting nurse or other home services: No Alcohol intake: never Comment: aware of trip hazard Patient Tobacco Use Status: Never used Tobacco Tobacco use type: Cigarette e-Cigarette/Vaping Use: Never Used Second Hand Smoke Exposure: No Advance Directives Date on File: 09/01/25 service: No Current occupational status: retired Current occupational exposures/hazards: No Cognitive needs: No Hearing needs: No Vision needs: Yes Review of Systems Const All systems reviewed & are unremarkable except as noted in HPI and below Physical Exam Const General: cooperative and no acute distress Orientation/consciousness: patient oriented x3 Resp Effort & Inspection: normal respiratory effort and able to speak in complete sentences Cardio Peripheral pulses: Peripheral pulses 2+ throughout Neuro General: patient oriented x3 Extrem Other: Left knee normal to inspection with mild joint effusion. Range of motion is full. No significant tenderness to palpation. Calf supple nontender neurovascularly intact. Results Reviewed Results Reviewed: X-rays of the left knee obtained in the office today and reviewed by me show severe degenerative changes with varus deformity. Assessment & Plan Assessment & Plan (1) Primary osteoarthritis of left knee: Code(s): M17.12 - Unilateral primary osteoarthritis, left knee Category: Medical Plan: We discussed options which includes conservative management given his activity and lifestyle are not significantly diminished. Despite the findings on the x-rays I explained to the patient if he is able to perform daily activities there is no need to pursue surgical intervention. The patient is content with this plan and will contact me if there is any changes going forward. Orders: Orders XR knee LT 2V Today M25.562 - Pain in left knee Coding Level of Care Code Est Pt Level 3 (61894) Complex EM visit Add On G2211 Diagnoses Primary osteoarthritis of left knee M17.12
== END 2025-09-28 15:41 | disposition home or self-care (01) ==
LOC: HO.HOS 14:10
PROVIDERS: PCP Internal Medicine; Visit Provider Physician Assistant
DX: M17.12 Unilateral primary osteoarthritis, left knee (principal)
CPT/HCPCS: 99213; G2211

== ENCOUNTER → 2025-09-28 14:11 | Outpatient (BNV) | payer MEDICARE, SELFPAY | PROVIDERS: Visit Provider Radiology Diagnostic Ultrasound | DX: M17.12 Unilateral primary osteoarthritis, left knee (principal) | CPT/HCPCS: 73560 ==

== ENCOUNTER → 2025-10-26 08:11 | Outpatient (BNV) | payer MEDICARE, SELFPAY | PROVIDERS: PCP Internal Medicine; Visit Provider Urology | DX: N32.0 Bladder-neck obstruction (principal) | CPT/HCPCS: 52649 ==

== ENCOUNTER 2025-10-26 12:19 | Inpatient (IN) | payer MEDICARE, SELFPAY ==
--- OUTSIDE RECORDS SUMMARY | 2024-09-29 03:30 | XMS_ITS ---
Author Organization [facility] Address [address] [place] [address] Care Team Providers Care Equal Opportunity Assistant Name Role Phone Heath RILEY, Rikki Primary Care Provider Unavaila Alice Rodriguez Unavailable [phone] REASON FOR VISIT no ppwrk Encounters Encounter Location Date Provider Diagnosis [facility] [address] [place] [address] 09/29/2024 Alice Diez Plan Of Treatment No Information Progress Notes * Mohsen NAYLOR ADOB: 3 (80 yo M)Acc No.[id number]:09/29/2024 Progress Notes Patient: Mohsen PENNINGTON Provider: Otilia Diez DPM :1945 A ge:79 Y S ex:Male Date:09/29/2024 Address:[address] [place], [place] [id number] Pcp:Rikki Joe MD Subjective: * Chief Complaints: [...] Diez DPM Date: 11/29/2023 Generated for Brigette ball/[place]/Nikkoitting on: 11/30/2024 11:59 PM EST
--- OUTSIDE RECORDS SUMMARY | 2025-09-30 23:59 | XMS_ITS | Patient Health Record ---
[facility] Address [address] [place] [address] Care Team Providers Care Shochet Name Role Phone Heath RILEY, Rikki Primary Care Provider Unavaila ble Black, Alice Unavailable [phone] Reason For Referral No Information Plan Of Treatment No Information Insurance Providers Payer Name Payer Address Payer Phone Subscriber Number Group Number Insured Name Patient Relationship to Insured Coverage Start Date Coverage End Date Medicare National [employer] [address] [place] [address] Mohsen Naylor Self - patient is the insured [employer] [address] [place] [address] Mohsen Naylor Self - patient is the insured
--- OUTSIDE RECORDS SUMMARY | 2025-09-30 23:59 | XMS_ITS | Patient Health Record ---
Author Organization [facility] Address [address] [place] [address] Care Team Providers Care Training Professional Name Role Phone Juan Carlos Bloom Unavailable [phone] Reason For Referral No Information Plan Of Treatment No Information
--- NOTE | 2025-10-21 12:29 | HO.ANESPROP2 ---
Documented by User: Haritha Dao NP 10/21/25 12:35 HPI - Anesthesia Eval Consult details Narrative: 80yo M for Laser Ablation Prostate w/Green Light [place] [facility] [place] with prior STEMI 2022 and then subsequently complex stenting of the LAD into diagonal branch 2022; PAF (eliquis), RBBB. Stable at routine visit 08/2025 for 1 year f/u PMF[facility] Active Problems Active Problems: All Active Problems Nocturia more than twice per night (Acute) Bifascicular block (Acute) Impaired glucose tolerance (Acute) Cognitive decline (Acute) Osteoarthritis of left knee (Acute) Paroxysmal atrial fibrillation (Acute) Dizziness (Acute) Inguinal hernia (Acute) Adult general medical exam (Acute) Acute retention of urine (Acute) BPH w urinary obs/LUTS (Acute) Primary osteoarthritis of left knee (Acute) Primary osteoarthritis of left knee (Acute) Cerumen impaction (Acute) Hypertension (Acute) Right inguinal hernia (Acute) Polymyalgia rheumatica (Acute) CAD (coronary artery disease) (Acute) Hyperlipidemia (Acute) Past Medical History Medical History Wears partial dentures PAF (paroxysmal atrial fibrillation) Nocturia more than twice per night RBBB Other obstructive and reflux uropathy Weak urinary stream Screening for diabetes mellitus Abnormal stress test HTN (hypertension) Pre-op exam Cerumen impaction Dizzy spells Right inguinal hernia Urinary tract infection Polymyalgia rheumatica Hyperlipidemia CAD (coronary artery disease) Family History Family History Father CVD (cardiovascular disease) Mother CVD (cardiovascular disease) Family history of problems with anesthesia: No Surgical History Surgical History S/P cardiac cath Stented coronary artery History of colonoscopy Hx of cardiac cath History of Problems with Anesthesia: No Social History Social History (Updated 10/22/25 @ 13:19 by Mary Ellen Garcia RN) Household Members: None Housing: House Are you a primary behavioral health care coordinator to a significant other at home: No Do you presently have visiting nurse or other home services: No Alcohol intake: never Comment: aware of trip hazard Patient Tobacco Use Status: Never used Tobacco Tobacco use type: Cigarette e-Cigarette/Vaping Use: Never Used Second Hand Smoke Exposure: No Use of substances other than those prescribed or required for medical reasons: No Have you been hit, kicked, punched, or otherwise hurt by someone within the past year? If so, by whom?: No Are you DNR?: No Advance Directives: Yes Advance Directives Information Provided: No Advance Directives on File: Yes Advance Directives Date on File: 09/01/25 service: No Current occupational status: retired Current occupational exposures/hazards: No Cognitive needs: No Hearing needs: No Vision needs: Yes Meds Allergies Allergy/AdvReac Type Severity Reaction Status Date / Time No Known Allergies Allergy Verified 10/26/25 08:24 Home Medications ?Medication ?Instructions ?Recorded ?Confirmed ?Last Taken ?Type calcium 600 mg (as 1 tab PO BID 08/18/20 10/26/25 Unknown History carbonate)-vitamin D3 10 mcg (400 unit) tablet (Calcium with Vitamin D) finasteride 5 mg tablet 5 mg PO QPM 08/28/25 10/26/25 Unknown History Exam Narrative Narrative: EKG 08/2025 EKG Details: EKG shows normal sinus rhythm with right bundle and left anterior fascicular block consistent with bifascicular block with anteroseptal QS pattern ECHO 07/2025 Conclusions: - The left ventricular systolic function is normal. The calculated ejection fraction is 55% by biplane method. - There is moderate septal and moderate basal asymmetric hypertrophy. - No obvious valvular pathology seen on this study. Assessment and Plan Assessment Anesthesia Assessment: Chart Reviewed Final Anesthetic Review Family History of Problems with Anesthesia: No History of Problems with Anesthesia: No Documented by User: Beatriz Sánchez MD 10/26/25 08:52 [facility] Past Medical History Medical History Wears partial dentures PAF (paroxysmal atrial fibrillation) Nocturia more than twice per night RBBB Other obstructive and reflux uropathy Weak urinary stream Screening for diabetes mellitus Abnormal stress test HTN (hypertension) Pre-op exam Cerumen impaction Dizzy spells Right inguinal hernia Urinary tract infection Polymyalgia rheumatica Hyperlipidemia CAD (coronary artery disease) Family History Family History Father CVD (cardiovascular disease) Mother CVD (cardiovascular disease) Surgical History Surgical History S/P cardiac cath Stented coronary artery History of colonoscopy Hx of cardiac cath Social History Social History (Updated 10/22/25 @ 13:19 by Mary Ellen Garcia RN) Household Members: None Housing: House Are you a primary behavioral health care coordinator to a significant other at home: No Do you presently have visiting nurse or other home services: No Alcohol intake: never Comment: aware of trip hazard Patient Tobacco Use Status: Never used Tobacco Tobacco use type: Cigarette e-Cigarette/Vaping Use: Never Used Second Hand Smoke Exposure: No Use of substances other than those prescribed or required for medical reasons: No Have you been hit, kicked, punched, or otherwise hurt by someone within the past year? If so, by whom?: No Are you DNR?: No Advance Directives: Yes Advance Directives Information Provided: No Advance Directives on File: Yes Advance Directives Date on File: 09/01/25 service: No Current occupational status: retired Current occupational exposures/hazards: No Cognitive needs: No Hearing needs: No Vision needs: Yes Meds Allergies Allergy/AdvReac Type Severity Reaction Status Date / Time No Known Allergies Allergy Verified 10/26/25 08:24 Home Medications ?Medication ?Instructions ?Recorded ?Confirmed ?Last Taken ?Type calcium 600 mg (as 1 tab PO BID 08/18/20 10/26/25 Unknown History carbonate)-vitamin D3 10 mcg (400 unit) tablet (Calcium with Vitamin D) finasteride 5 mg tablet 5 mg PO QPM 08/28/25 10/26/25 Unknown History Exam Airway Mallampati Class: II TM Dist: >3cm Neck ROM: Limited Heart: sr Lungs: cta Assessment and Plan Assessment Anesthesia Assessment: Anesthesia Plan Discussed Final Anesthetic Review NPO: Yes ASA Class: III Final Preanesthetic Review: No Changes in Pt Med Stat, Meds/Allgs Chart Reviewed, Consent Obtained/Reviewed and Anes Risks/Benef Reviewed Patient Risk: Intermediate Procedure Risk: Low Anesthetic Plan Anesthetic Plan: GA and Agree w/ Assess. and Plan Disposition: Standard PACU
[2025-10-22 12:50] VITALS: BMI 25.3
[2025-10-22 13:10] VITALS: BMI 25.0
[2025-10-26] VITALS (13 sets, daily range): BP systolic 104–151; BP diastolic 61–78; PULSE 48–72; RESP 12–19; TEMP 36.2–37.1; O2SAT 92–100; BMI 25.6
[2025-10-26] MEDS: Lactated Ringers 1,000 ML 100 ML IVCONT ×2 (08:36→18:33)
--- NOTE | 2025-10-26 09:33 | MHC.SHP ---
Pre-Procedural Eval Section A - 24 Hr Update-Section A only Date of Service: 10/26/25 The patient is an INPATIENT: No Changes since office visit: No Cold of Flu in the past 2 weeks, No New Medical Problems, No Changes in Medication and No Patient answered all questions The patient has been examined within 24 hours of the surgical procedure. The History & Physical has been completed within 30 days and I have reviewed it.: No Section B - Complete if H&P > 30 days Chief Complaint: Benign prostatic hyperplasia with lower urinary Details of Present Illness: GreenLight laser prostatectomy Relevant Social History: None Present Medications: None Medical History: No relevant PMH History of Previous Operations: No relevant previous surgery Allergies: Allergies Allergy/AdvReac Type Severity Reaction Status Date / Time No Known Allergies Allergy Verified 10/26/25 08:24 Review of Systems Sugical H&P ROS: Negative: Constitution, Cardiovascular, Respiratory, Neurological, Psychiatric, Hem-Onc, Allergic/Immunologic, Gastrointestinal, Genitourinary, Musculoskeletal, Integumentary, Endocrine and Eyes/Ears/Nose/Throat Exam Surgical H&P Exam: Normal: HEENT, Normal: Heart, Normal: Lungs, Normal: Extremities, Normal: Abdomen, Normal: Skin and Normal: Neurological Plan Diagnosis/Plan: Unchanged (GreenLight laser prostatectomy) I have reviewed the history and physical and performed a pertinent physical examination on my patient. No changes have occurred unless specified. Time Spent With Patient Time: Total time managing care of this patient today ____ minutes.
--- NOTE | 2025-10-26 10:33 | W.PM.OPN ---
Operative Note Operative Note Date of Service: 10/26/25 Narrative: PreOperative Diagnosis: Bladder outlet obstruction Post Operative Diagnosis: Bladder outlet obstruction Procedure: GreenLight Laser Enucleation of the prostate CPT 36558 Surgeon: Dr Fidencio Rhodes Anesthesia: General History of bladder outlet obstruction. Treated with alpha-fanny and other medications. Still with symptoms. On cystoscopy in office has trilobar prostate. Bladder ultrasound with 80 g prostate. Recommendation for prostate procedure with laser enucleation of prostate. Risks and benefits have been discussed. Focus was placed on development of retrograde ejaculation which is a normal part of this procedure. Published revision rates are approximately 30-50% at 8-10 years following the procedure. Procedure: After informed consent was verified the patient was brought to the operating room and placed in a supine position. Anesthesia was administered per protocol. Patient was placed in modified dorsal lithotomy position and prepped and draped in a sterile fashion. Safety pause time-out was confirmed. Antibiotics have been given. A Twenty-four Anguillan laser cystoscope was inserted per urethra. No abnormalities were found of the anterior and bulbar urethra. The prostatic urethra shows trilobar hypertrophy. The bladder was examined and both ureteric orifices were seen in their normal positions away from the area of interest. Bladder trabeculation grade 2. A GreenLight laser with attached pressure bag Normal Saline cooling irrigation was used. At initial setting of 80 wagoner incisions were made at the 5 and 7 o'clock position. The incisions were taken down from the bladder neck down to the area just proximal of the veru. These were gradually deepened in order to define the lateral aspects of the median lobe area and separate the lateral lobe areas from the median lobe.. The deep boundary of enucleation was defined by the prostate surgical capsule. Once clearly defined the grooves were extended in the lateral directions in order to create a deep groove and begin to undermined the lateral lobe areas.. The median lobe was then ablated and enucleated tissue released into the bladder with the laser power increased to 120 W. this was accomplished by approaching the median lobe from each lateral incision and working from lateral to medial. Medium-sized median lobe. Once the median lobe area had been cleared, attention was directed to the lateral lobes. Starting with the patient's left lateral lobe. First the 05:00 o'clock groove was further developed. This was moved in the lateral direction to undermine the tissue on the lateral side running from the bladder neck to the prostate apex. The ureteric orifice was used to guide incisions. The laser fiber was placed at the 1 o'clock position and a secondary groove was developed down to the level of prostatic capsule. The creation of a second deep groove defined a segment of intervening tissue similar to a slice of orange. At the apex of the prostate the laser was used to vertically link the two grooves releasing the intervening tissue and creating a segment of tissue. This tissue was then removed with a combination of enucleation and ablation working from the apex toward the bladder neck. A similar procedure was repeated on the patient's right-hand side. The only differences being the position of the lateral groove at the 7 o'clock position and the secondary groove at the 11 o'clock position, Otherwise the procedure was developed in a mirror fashion. After the majority of tissue had been debulked remnant tissue was ablated with the side fire laser and the curve of the prostate followed up each side wall clearly defining the anterior remnant strip that remained between the 11 and 1 o'clock positions. At completion debris and pieces of prostate were removed from the bladder with irrigation. Both ureteric orifices were reviewed again in shown to be patent in away from any areas of energy damage. Fluid was released from the prostate and inflow was ceased in order to evaluate the prostatic fossa for bleeding. The apical area was reviewed and any stray mucosal ooze was controlled. A 22 Anguillan 30 cc balloon Eng catheter was placed into the bladder using a flexible stylet. Clear efflux was obtained upon irrigation with a Li piston syringe. 30 cc was placed in the balloon and gentle traction was placed. A snap was used to hold tension on the catheter to control bleeding during patient moved and transported. A drainage bag was placed. A belladonna and opiate suppository was placed in order to assist in postprocedure pain management. Once transportation is complete to the PACU the snap will be removed. The patient tolerated the procedure well, he was extubated in the operating and transferred in a stable condition to the recovery area. Total Power 123 kJ Lasing time 19:20 Pathology: Prostate tissue Drains: Eng catheter
--- NOTE | 2025-10-26 10:48 | PHA.MEDREC ---
Pharmacy Consult ? Medication Reconciliation Pharmacy has reviewed the medication reconciliation done by nursing.
[2025-10-26] MEDS: 0.9 % Sodium Chloride Flush 3 ML SYRINGE IVFLUSH (20:10)
[2025-10-27 03:35] VITALS: BP 121/65; PULSE 67; RESP 16; TEMP 36.6; O2SAT 93
[2025-10-27] MEDS: Lactated Ringers 1,000 ML 100 ML IVCONT (04:39)
[2025-10-27 07:46] VITALS: BP 144/73; PULSE 59; RESP 18; TEMP 36.6; O2SAT 95
[2025-10-27 08:14] VITALS: BP 147/78; PULSE 59; RESP 18; TEMP 36.8; O2SAT 95
--- NOTE | 2025-10-27 08:27 | HO.POSTANES ---
Post Anesthesia Evaluation Post Anesthesia Evaluation Date of Service: 10/27/25 Vital Signs: Vital Signs Temp Pulse Resp BP Pulse Ox O2 Del Method 10/27/25 08:14 98.3 F 59 18 147/78 H 95 Room Air 10/27/25 07:46 97.8 F 59 18 144/73 H 95 Room Air 10/27/25 03:35 97.9 F 67 16 121/65 93 Room Air Anesthesia: General Mental Status: Awake Pain Control: Satisfactory Nausea/Vomiting: None Hydration: Adequate Anesthesia-Related Issues: No Anes. Related Issues
--- NOTE | 2025-10-27 12:02 | MHC.CM.PN ---
PT LIVES ALONE HAS A RIDE HOME AND HAD NO SERVICES DC PLAN HOME N/S
--- NOTE | 2025-10-27 13:08 | PM.UROPN ---
Subjective Subjective Date of Service: 10/27/25 Interval history: Postop day 1 from laser procedure on prostate Doing well Minimal hematuria Discussed discharge this afternoon Has no ride that can bring him to the office tomorrow Plan for Eng catheter removal approximately 14:00 He will be able to discharge around 5 Physical Exam Vital Signs: Vital Signs: Last Vital Signs Temp 98.3 F 10/27/25 08:14 Pulse 59 10/27/25 08:14 Resp 18 10/27/25 08:14 BP 147/78 H 10/27/25 08:14 Pulse Ox 95 10/27/25 08:14 O2 Del Method Room Air 10/27/25 08:14 O2 Flow Rate 4 10/26/25 10:47 BMI result Body Mass Index 25.6 Const: General: cooperative, healthy appearing, comfortable and no acute distress Orientation/consciousness: patient oriented x3 HEENT: Face and sinus: Yes normal facial exam Mouth: moist mucous membranes Neck: Neck: Yes normal visual inspection, Yes full ROM and Yes trachea midline Chest: Chest palpation & inspection: normal inspection of the chest Resp: Effort & Inspection: normal respiratory effort, able to speak in complete sentences and no respiratory distress GI: Inspection: Yes normal to inspection Back/Spine/Pelvis: Cervical Spine: normal cervical lordosis Thoracic/Lumbar Spine: thoracic and lumbar spine normal to inspection Skin: General skin exam: no rashes or lesions noted Neuro: General: patient oriented x3, tone normal and moves all extremities Extrem: General: Yes normal to inspection and Yes capillary refill normal Progress Note: A&P Assessment and plan (1) BPH w urinary obs/LUTS: Status: Acute Plan DC Eng catheter to p.m. DC home 17:00 Follow-up office 6 weeks Time Spent With Patient Time: Total time managing care of this patient today ____ minutes.
[2025-10-27 15:45] VITALS: BP 134/66; PULSE 63; RESP 18; TEMP 36.7; O2SAT 95
--- NOTE | 2025-10-27 16:20 | P.DS_ITS ---
DS: Providers Provider Date of admission: 10/26/25 12:19 Date of discharge: 10/27/25 Primary care physician: Brittani Vila MD DS: Diagnosis Discharge Diagnosis (1) BPH w urinary obs/LUTS: Status: Acute DS: Summary Hospital Course Hospital Course: Admission on 10/26/2025 for GreenLight laser prostatectomy Remained in hospital overnight for safety reasons regarding Eng catheter and lack of support in home environment Eng catheter removed today postoperative day 1 in the afternoon and he was able to void We will follow-up in 6 weeks with office Status at Discharge Functional status at discharge: independent ambulation Overall status at discharge: patient is back to baseline Time Attestation Total time managing care of this patient today: 15 mintues. Discharge Coordination Time (in mins): 10 Quality: Safe Use of Opioids Does Pt have an Active Cancer Diagnosis on the Problem List?: No Quality: Stroke Does the patient have a stroke diagnosis?: No Physical Exam Vital Signs: Vital Signs: Last Vital Signs Temp 98.1 F 10/27/25 15:45 Pulse 63 10/27/25 15:45 Resp 18 10/27/25 15:45 BP 134/66 10/27/25 15:45 Pulse Ox 95 10/27/25 15:45 O2 Del Method Room Air 10/27/25 15:45 O2 Flow Rate 4 10/26/25 10:47 BMI result Body Mass Index 25.6 DS: Data Data Completed and Pending Pending studies at discharge: Pending at discharge 10/26/25 10:44 Surgical [PTH] Routine Discharge Plan Discharge Anticipated Discharge Date/Time: 10/27/25 16:18 Patient Disposition: Home, Self-Care Discharge Diagnosis: Bladder outlet obstruction Referrals: Brittani Vila MD [Primary Care Provider, Internal Medicine] - 1 Week Discharge Medications: Continued (DME) walker Misc See Rx Instructions .MEDSUPPLY Qty: 1 0RF Rx Instructions: Folding Front wheeled walker carvedilol 12.5 mg tablet 12.5 mg PO BID Qty: 180 8RF Eliquis 5 mg tablet 5 mg PO BID Qty: 180 3RF atorvastatin 40 mg tablet 40 mg PO QPM Qty: 90 3RF finasteride 5 mg tablet 5 mg PO QPM calcium carbonate-vitamin D3 [Calcium with Vitamin D] 600 mg(1,500mg) -400 unit tablet 1 tab PO BID Discharge Orders: Discharge Order (Routine); Ordered 10/27/25 Ordered By: Fidencio Rhodes Diet: Advance to usual diet Activity on Discharge: As tolerated Stand Alone Forms: Patient Portal Discharge page Print Language: Filipino Care Plan Goals: Keep voiding Health Concerns: Keep void Plan of Treatment: Keep voiding Assessment: Keep voiding
--- NOTE | 2025-10-27 16:31 | MHC.CM.PN ---
Patient discharged to home self care. He arranged for transportation home.
== END 2025-10-27 16:54 | disposition home or self-care (01) | DRG 713 ==
LOC: HO.S3 12:20
PROVIDERS: Admitting Provider Urology; PCP Internal Medicine; Visit Provider Urology
PROC: 0V508ZZ Destruction of Prostate, Via Natural or Artificial Opening Endoscopic (ICD-10-PCS; CPT 52648; principal; 2025-10-26 10:10)
DX: N40.1 Benign prostatic hyperplasia with lower urinary tract symptoms (principal); N13.8 Other obstructive and reflux uropathy; I25.10 Atherosclerotic heart disease of native coronary artery without angina pectoris; Z95.5 Presence of coronary angioplasty implant and graft; Z79.01 Long term (current) use of anticoagulants; Z79.899 Other long term (current) drug therapy
CPT/HCPCS: 88305; J0131; J1100; J1956; J2003; J2704; J7120